=== PATIENT | male | born 1945 | race Caucasian/White ===

== ENCOUNTER 2023-06-03 11:45 | Outpatient (OUT) | payer MEDICARE, SELFPAY ==
--- NOTE | 2023-06-03 13:09 | PM.CN ---
Consult Note: HPI Data of Consult Patient: new to practice Consult date: 06/03/23 Requesting Physician: Boone Olea MD Primary Care Provider: Dev Diehl MD Consult Narrative Reason for consult: left knee pain Narrative: 77yom who presents for evaluation. longstanding left knee pain. has had various injections before, including euflexa, cortisone, synvisc. states that euflexa was most effective. engages in >6 weeks of provider directed home exercises. denies adverse med side effects. cc:: CC: Boone Olea MD Review of Systems ROS Status of ROS 10 or more systems reviewed and unremarkable except as noted in history and below Meds Home Medications and Allergies Home Medications Medication Instructions Recorded Confirmed Type tiotropium bromide 18 mcg capsule 1 cap inhalation DAILY 06/03/23 06/03/23 History with inhalation device (Spiriva with HandiHaler) Allergies Allergy/AdvReac Type Severity Reaction Status Date / Time No Known Drug Allergies Allergy Verified 06/03/23 13:07 Exam Narrative Exam Narrative: Psych-alert and oriented x 3.? Attentive and appropriate, constitutionally normal, displays normal mood and affect per situation.? There are no obvious deficits in memory, reasoning, or intellect. Extremities-lower extremities are warm with minimal edema and palpable pulses. Knee-examination of the left knee reveals tenderness to palpation over the superior, inferior, lateral, and medial aspect of the knee.? Some swelling is noted without erythema. Pain is elicited with flexion and extension of the knee both actively and passively.? Some grinding is noted with these motions.? There is no notable ligamental laxity or instability.? Coordination remains intact.? Gait remains antalgic. Assessment and Plan Assessment and Plan (1) Osteoarthritis of left knee: Plan 77yom who presents for evaluation. failed physical and medical modalities. imaging shows significant arthritis of left knee. has had significant relief previously with euflexa. wants to avoid knee replacement. given previous relief and current symptoms, prudent to repeat left euflexa injection of left knee. he is in agreement. med reviewed, no changes made. follow up in office for left knee injection.
== END 2023-06-03 11:46 | disposition home or self-care (01) ==
PROVIDERS: PCP Family Medicine; Visit Provider Anesthesiology
DX: M17.12 Unilateral primary osteoarthritis, left knee (principal)
CPT/HCPCS: G0463

== ENCOUNTER 2023-07-01 14:42 | Outpatient (OUT) | payer MEDICARE, SELFPAY ==
--- NOTE | 2023-07-01 15:03 | P.CN_ITS ---
Consult Note: HPI Data of Consult Patient: known to practice within the last 3 years Consult date: 07/01/23 Requesting Physician: Boone Olea MD Primary Care Provider: Dev Diehl MD Consult Narrative Reason for consult: Left knee pain Narrative: 78yom who presents for assessment. Persistent left knee pain, previously discussed knee injection. Would like to proceed today. cc:: CC: Boone Olea MD Review of Systems ROS Status of ROS 10 or more systems reviewed and unremarkable except as noted in history and below Meds Home Medications and Allergies Home Medications Medication Instructions Recorded Confirmed Type tiotropium bromide 18 mcg capsule 1 cap inhalation DAILY 06/03/23 06/03/23 History with inhalation device (Spiriva with HandiHaler) Allergies Allergy/AdvReac Type Severity Reaction Status Date / Time No Known Drug Allergies Allergy Verified 06/03/23 13:07 Exam Narrative Exam Narrative: Psych-alert and oriented x 3.? Attentive and appropriate, constitutionally normal, displays normal mood and affect per situation.? There are no obvious deficits in memory, reasoning, or intellect. Extremities-lower extremities are warm with minimal edema and palpable pulses. Knee-examination of the left knee reveals tenderness to palpation over the superior, inferior, lateral, and medial aspect of the knee.? Some swelling is noted without erythema. Pain is elicited with flexion and extension of the knee both actively and passively.? Some grinding is noted with these motions.? There is no notable ligamental laxity or instability.? Coordination remains intact.? Gait remains antalgic. Assessment and Plan Assessment and Plan (1) Osteoarthritis of left knee: Plan 78yom who presents for left knee injection. Previously had Euflexxa injections, which provided more relief than other variations of knee injection. Would like to proceed with a series of Euflexxa injections. Today is his first Euflexxa injection. Procedure: Left knee injection Medications: Euflexxa (hyaluronic acid) I explained the details of the procedure to the patient including the risks, benefits and alternatives. We had an informed discussion and the patient verbalized understanding and signed the consent form. All questions were answered appropriately.? A time out was performed.? After obtaining a comfortable seated position, the left knee was prepped with alcohol x3. A syringe containing the above medication was attached to a 25 guage, 1.5 inch needle under strict aseptic technique. The lateral tibial plateau was palpated.? The needle was then advanced through the subcutaneous tissue in a medial and superior direction towards the joint space.? The contents of the syringe were gently injected without any resistance. The needle was removed and pressure was applied to the injection site to decrease th e incidence of ecchymosis and hematoma formation.? A sterile bandage was applied.
== END 2023-07-01 14:43 | disposition home or self-care (01) ==
LOC: PM 14:42
PROVIDERS: PCP Family Medicine; Visit Provider Anesthesiology
DX: M17.12 Unilateral primary osteoarthritis, left knee (principal)
CPT/HCPCS: 20610; J7323

== ENCOUNTER 2023-07-08 13:35 | Outpatient (OUT) | payer MEDICARE, SELFPAY ==
--- NOTE | 2023-07-08 15:36 | PM.CN ---
Consult Note: HPI Data of Consult Patient: known to practice within the last 3 years Consult date: 07/08/23 Requesting Physician: Boone Olea MD Primary Care Provider: Dev Diehl MD Consult Narrative Reason for consult: left knee pain Narrative: 78yom who presents for left knee injection. today is second Euflexxa injection of left knee. cc:: CC: Boone Olea MD Review of Systems ROS Status of ROS 10 or more systems reviewed and unremarkable except as noted in history and below Meds Home Medications and Allergies Home Medications Medication Instructions Recorded Confirmed Type tiotropium bromide 18 mcg capsule 1 cap inhalation DAILY 06/03/23 06/03/23 History with inhalation device (Spiriva with HandiHaler) Allergies Allergy/AdvReac Type Severity Reaction Status Date / Time No Known Drug Allergies Allergy Verified 06/03/23 13:07 Exam Narrative Exam Narrative: Psych-alert and oriented x 3.? Attentive and appropriate, constitutionally normal, displays normal mood and affect per situation.? There are no obvious deficits in memory, reasoning, or intellect. Extremities-lower extremities are warm with minimal edema and palpable pulses. Knee-examination of the left knee reveals tenderness to palpation over the superior, inferior, lateral, and medial aspect of the knee.? Some swelling is noted without erythema. Pain is elicited with flexion and extension of the knee both actively and passively.? Some grinding is noted with these motions.? There is no notable ligamental laxity or instability.? Coordination remains intact.? Gait remains antalgic. Assessment and Plan Assessment and Plan (1) Osteoarthritis of left knee: Plan 78yom who presents for left knee injection. feeling well after first euflexxa injection last week. questions answered, risks and benefits reviewed. Procedure: Left knee injection Medications: Euflexxa I explained the details of the procedure to the patient including the risks, benefits and alternatives. We had an informed discussion and the patient verbalized understanding and signed the consent form. All questions were answered appropriately.? A time out was performed.? After obtaining a comfortable seated position, the left knee was prepped with alcohol x3. A syringe containing the above medication was attached to a 25 guage, 1.5 inch needle under strict aseptic technique. The lateral tibial plateau was palpated.? The needle was then advanced through the subcutaneous tissue in a medial and superior direction towards the joint space.? The contents of the syringe were gently injected without any resistance. The needle was removed and pressure was applied to the injection site to decrease the incidence of ecchymosis and hematoma formation.? A sterile bandage was applied.
== END 2023-07-08 13:36 | disposition home or self-care (01) ==
LOC: PM 13:35
PROVIDERS: PCP Family Medicine; Visit Provider Anesthesiology
DX: M17.12 Unilateral primary osteoarthritis, left knee (principal)
CPT/HCPCS: 20610; J7323

== ENCOUNTER 2023-07-22 13:24 | Outpatient (OUT) | payer MEDICARE, SELFPAY ==
--- NOTE | 2023-07-22 13:53 | P.CN_ITS ---
Consult Note: HPI Data of Consult Patient: known to practice within the last 3 years Consult date: 07/22/23 Requesting Physician: Boone Olea MD Primary Care Provider: Dev Diehl MD Consult Narrative Reason for consult: Left knee pain Narrative: 78yom who presents for left knee injection. Today is third round of Euflexxa injections into left knee. cc:: CC: Boone Olea MD Review of Systems ROS Status of ROS 10 or more systems reviewed and unremark able except as noted in history and below Meds Home Medications and Allergies Home Medications Medication Instructions Recorded Confirmed Type tiotropium bromide 18 mcg capsule 1 cap inhalation DAILY 06/03/23 06/03/23 History with inhalation device (Spiriva with HandiHaler) Allergies Allergy/AdvReac Type Severity Reaction Status Date / Time No Known Drug Allergies Allergy Verified 06/03/23 13:07 Exam Narrative Exam Narrative: Psych-alert and oriented x 3.? Attentive and appropriate, constitutionally normal, displays normal mood and affect per situation.? There are no obvious deficits in memory, reasoning, or intellect. Extremities-lower extremities are warm with minimal edema and palpable pulses. Knee-examination of the left knee reveals tenderness to palpation over the superior, inferior, lateral, and medial aspect of the knee.? Some swelling is noted without erythema. Pain is elicited with flexion and extension of the knee both actively and passively.? Some grinding is noted with these motions.? There is no notable ligamental laxity or instability.? Coordination remains intact.? Gait remains antalgic. Assessment and Plan Assessment and Plan (1) Osteoarthritis of left knee: Qualifiers: Osteoarthritis type: primary Qualified Code(s): M17.12 - Unilateral primary osteoarthritis, left knee Plan 78yom who presents for left knee euflexxa injcetion. Has done well with previous two, today is third and final euflexxa injection. He agrees to proceed. Procedure: left knee euflexxa injection I explained the details of the procedure to the patient including the risks, benefits and alternatives. We had an informed discussion and the patient verbalized understanding and signed the consent form. All questions were answered appropriately.? A time out was performed.? After obtaining a comfortable seated position, the left knee was prepped with alcohol x3. A syringe containing the above medication was attached to a 22 guage, 1.5 inch needle under strict aseptic technique. The lateral tibial plateau was palpated.? The needle was then advanced through the subcutaneous tissue in a medial and superior direction towards the joint space.? The contents of the syringe were gently injected without any resistance. The n eedle was removed and pressure was applied to the injection site to decrease the incidence of ecchymosis and hematoma formation.? A sterile bandage was applied.
== END 2023-07-22 13:25 | disposition home or self-care (01) ==
LOC: PM 13:25
PROVIDERS: PCP Family Medicine; Visit Provider Anesthesiology
DX: M17.12 Unilateral primary osteoarthritis, left knee (principal)
CPT/HCPCS: 20610; J7323

== ENCOUNTER 2023-08-12 09:40 | Outpatient (OUT) | payer MEDICARE, SELFPAY ==
--- NOTE | 2023-08-12 | XR_ITS ---
[address] [address] Patient Name: MONA SONI MRN: [id number] date: 1945 Sex: M Assigned Patient Location: RAD Current Patient Location: [facility] Accession/Order Number: [id number] Exam Date: 08/12/2023 09:45 Report Date: 08/12/2023 10:52 At the request of: HELENA SHEPPARD Procedure: XR knee LT 4V PROCEDURE: XR knee LT 4V COMPARISON: 06/09/2016 HISTORY: LEFT KNEE PAIN FINDINGS: BONES:No acute fracture or dislocation. Tricompartmental osteoarthritis severe in the anterior and lateral compartments. Lateral compartment joint space narrowing with marginal osteophyte formation SOFT TISSUES:Negative. No visible soft tissue swelling. EFFUSION:None visible. OTHER: Negative. XR/XR knee LT 4V IMPRESSION: Moderate to severe tricompartmental osteoarthritis Electronically authenticated by: TYLER PIKE Date: 08/12/2023 10:52
--- OUTSIDE RECORDS SUMMARY | 2023-08-12 09:44 | XMS_ITS | CCD ---
Author Name Unknown Address [address] [place] [address] Organization [facility] Care Team Providers Care Presser First Name Role Phone Dalton Romo Admitting Unavailable Dalton Romo Attending Unavailable NADERER, DR OZ Sosa Attending Unavailable NADERER, DR OZ Sosa Consulting Unavailable NADERER, DR OZ Sosa Primary Care Unavailable NADERER, DR OZ Sosa Admitting Unavailable NADERER, DR OZ Sosa Attending Unavailable NADERER, DR OZ Sosa Consulting Unavailable NADERER, DR OZ Sosa Primary Care Unavailable NADERER, DR OZ Sosa Admitting Unavailable NADERER, DR OZ Sosa Consulting Unavailable NADERER, DR OZ Sosa Primary Care Unavailable NADERER, DR OZ Sosa Admitting Unavailable NADERER, DR OZ Sosa Attending Unavailable Trace Okeefe Primary Care Provider [phone] Lefty BRYANT, Andyazmin Zendejas Attending Unavailable Waqasitis , Andrius Vytestela Attending Unavailable Lefty BRYANT, Andrius Biankaytestela Attending Unavailable Lefty BRYANT, Andrius Zendejas Attending Unavailable Problems Active Problems Problem Classification Problem Date Documented Da te Episodic/Chronic Other lower respiratory disease (4 sources) Shortness of breath; Translations: [SHORTNESS OF BREATH] Onset: 07-19-2022 Episodic Unclassified (1 source) T81.41XA - Infection following a procedure, superficial incisional surgical site, initial encounter; Translations: [T81.41XA - Infection following a procedure, superficial incisional surgical site, initial encounter] Onset: 10-27-2018 Past or Other Problems Problem Classification Problem Date Documented Da te Episodic/Chronic Genitourinary symptoms and ill-defined conditions (4 sources) Dysuria; Translations: [DYSURIA] Onset: 01-03-2022 Episodic Other aftercare (4 sources) Other terminal gauger (current) drug therapy; Translations: [OTH RESIDENTIAL CURRENT DRUG THERAPY] Onset: 08-24-2021 Episodic Other screening for suspected conditions (not mental disorders or infectious disease) (2 sources) Encounter for screening for malignant neoplasm of prostate; Translations: [Encounter for screening for lipoid disorders] Onset: 08-26-2021 Episodic Results Test Name Value Interpretation Reference Range Facil ity HEMOGLOBINon 07-19-2022 Hemoglobin (Bld) [Mass/Vol] 14.0 g/dL Normal 14.0-18.0 [facility] Comment on above: Performed By: #### H GB #### [facility] [address] [place] [address] Dr. Holden Monae CULTURE URINEon 01-03-2022 CULTURE URINE Culture Observations: No growth Normal [facility] Comment on above: Performed By: #### U RCX #### [facility] [address] [place] [address] Dr. Holden Monae UA RANDOM W/MICROSCOPICon BACTERIA NONE SEEN Normal NONE SEEN [facility] Comment on above: Performed By: #### U AMIC #### [facility] [address] [place] [address] Dr. Holden Monae Bilirubin Ql (U) Negative Normal NEGATIVE [facility] Comment on above: Performed By: #### U AMIC #### [facility] [address] [place] [address] Dr. Holden Monae CA OX CRYSTALS FEW Normal [facility] Comment on above: Performed By: #### U AMIC #### [facility] [address] [place] [address] Dr. Holden Monae CAST NONE SEEN Normal NONE SEEN [facility] Comment on above: Performed By: #### U AMIC #### [facility] [address] [place] [address] Dr. Holden Monae Clarity (U) CLEAR Normal CLEAR [facility] Comment on above: Performed By: #### U AMIC #### [facility] [address] [place] [address] Dr. Holden Monae Color (U) YELLOW Normal YELLOW [facility] Comment on above: Performed By: #### U AMIC #### [facility] [address] [address] [address] Holden Monae Crystals LM Nom (Urine sed) SEEN Abnormal NONE SEEN [facility] Comment on above: Performed By: #### U AMIC #### [facility] [address] [address] [address] Holden Monae Epithelial cells LM Ql (Urine sed) RARE Normal NONE SEEN /RARE [facility] Comment on above: Performed By: #### U AMIC #### [facility] [address] [address] [address] Holden Monae Glucose Ql (U) Negative Normal NEGATIVE [facility] Comment on above: Performed By: #### U AMIC #### [facility] [address] [address] [address] Holden Monae Hemoglobin Ql (U) Negative Normal NEGATIVE [facility] Comment on above: Performed By: #### U AMIC #### [facility] [address] [address] [address] Holden Monae Ketones Ql (U) Negative Normal NEGATIVE [facility] Comment on above: Performed By: #### U AMIC #### [facility] [address] [address] [address] Holden Monae LEUKOCYTES Negative Normal NEGATIVE [facility] Comment on above: Performed By: #### U AMIC #### [facility] [address] [address] [address] Holden Monae MUCOUS NONE SEEN Normal NONE SEEN [facility] Comment on above: Performed By: #### U AMIC #### [facility] [address] [address] [address] Holden Monae Nitrite Ql (U) Negative Normal NEGATIVE [facility] Comment on above: Performed By: #### U AMIC #### [facility] [address] [address] [address] Holden Monae pH (U) 6.0 [pH] Normal 5-9 [facility] Comment on above: Performed By: #### U AMIC #### [facility] [address] [place] [address] Dr. Holden Monae RBC NONE SEEN Abnormal 0-2 [facility] Comment on above: Performed By: #### U AMIC #### [facility] [address] [place] [address] Dr. Holden Monae SPEC GRAVITY 1.020 Normal 1.005-<=1.025 [facility] Comment on above: Performed By: #### U AMIC #### [facility] [address] [place] [address] Dr. Holden Monae UA PROTEIN Negative Normal NEGATIVE/ TRACE [facility] Comment on above: Performed By: #### U AMIC #### [facility] [address] [place] [address] Dr. Holden Monae Urobilinogen Qn (U) 0.2 {Any'U}/dL Normal 0.2 - 1. 0 [facility] Comment on above: Performed By: #### U AMIC #### [facility] [address] [place] [address] Dr. Holden Monae WBC 2-5 Abnormal NONE SEEN [facility] Comment on above: Performed By: #### U AMIC #### [facility] [address] [place] [address] Dr. Holden Monae CBC AUTO DIFFon 08-24-2021 BASO # 0.1 103/ul Normal 0.0-0.1 [facility] Comment on above: Performed By: #### C BC #### [facility] [address] [place] [address] Dr. Holden Monae Basophils/100 WBC (Bld) 1.5 % Normal 0.2-2.0 [facility] Comment on above: Performed By: #### C BC #### [facility] [address] [place] [address] Dr. Holden Monae EO # 0.1 103/ul Normal 0.0-0.7 [facility] Comment on above: Performed By: #### C BC #### [facility] [address] [place] [address] Dr. Holden Monae Eosinophils/100 WBC (Bld) 2.1 % Normal 0.9-7.0 [facility] Comment on above: Performed By: #### C BC #### [facility] [address] [place] [address] Dr. Holden Monae Erythrocyte distribution width (RBC) [Ratio] 12.7 % Normal 11.0-15.0 [facility] Comment on above: Performed By: #### C BC #### [facility] [address] [place] [address] Dr. Holden Monae Hematocrit (Bld) [Volume fraction] 45.2 % Normal 42.0-54.0 [facility] Comment on above: Performed By: #### C BC #### [facility] [address] [place] [address] Dr. Holden Monae Hemoglobin (Bld) [Mass/Vol] 14.8 g/dL Normal 14.0-18.0 [facility] Comment on above: Performed By: #### C BC #### [facility] [address] [place] [address] Dr. Holden Monae IG # 0.01 10e3/ul Normal 0.00-0.03 [facility] Comment on above: Performed By: #### C BC #### [facility] [address] [place] [address] Dr. Holden Monae IG % 0.3 % Normal 0.0-0.5 [facility] Comment on above: Performed By: #### C BC #### [facility] [address] [place] [address] Dr. Holden Monae LYMPH # 1.2 103/ul Normal 1.2-3.8 [facility] Comment on above: Performed By: #### C BC #### [facility] [address] [place] [address] Dr. Holden Monae Lymphocytes/100 WBC (Bld) 35.2 % Normal 20.5-60.0 [facility] Comment on above: Performed By: #### C BC #### [facility] [address] [place] [address] Dr. Holden Monae MANUAL DIFF REQ NO Normal [facility] Comment on above: Performed By: #### C BC #### [facility] [address] [place] [address] Dr. Holden Monae MCH (RBC) [Entitic mass] 30.9 pg Normal 25.9-34.0 [facility] Comment on above: Performed By: #### C BC #### [facility] [address] [place] [address] Dr. Holden Monae MCHC (RBC) [Mass/Vol] 32.7 g/dL Normal 29.9-35.2 [facility] Comment on above: Performed By: #### C BC #### [facility] [address] [place] [address] Dr. Holden Monae MCV (RBC) [Entitic vol] 94.4 fL Critically high 80.0-94.0 [facility] Comment on above: Performed By: #### C BC #### [facility] [address] [place] [address] Dr. Holden Monae MONO # 0.3 103/ul Normal 0.3-0.8 [facility] Comment on above: Performed By: #### C BC #### [facility] [address] [place] [address] Dr. Holden Monae Monocytes/100 WBC (Bld) 7.6 % Normal 1.7-12.0 [facility] Comment on above: Performed By: #### C BC #### [facility] [address] [place] [address] Dr. Holden Monae NEUT # 1.8 103/ul Normal 1.4-6.5 [facility] Comment on above: Performed By: #### C BC #### [facility] [address] [place] [address] Dr. Holden Monae Neutrophils/100 WBC (Bld) 53.3 % Normal 43.0-75.0 [facility] Comment on above: Performed By: #### C BC #### [facility] [address] [place] [address] Dr. Holden Monae Platelet mean volume (Bld) [Entitic vol] 9.5 fL Normal 9.5-13.5 [facility] Comment on above: Performed By: #### C BC #### [facility] [address] [address] [address] Holden Monae PLT 168 103/ul Normal 150-450 [facility] Comment on above: Performed By: #### C BC #### [facility] [address] [address] [address] Holden Monae RBC 4.79 106/ul Normal 4.70-6.10 [facility] Comment on above: Performed By: #### C BC #### [facility] [address] [address] [address] Holden Monae WBC 3.4 103/ul Critically low 4.0-11.0 [facility] Comment on above: Performed By: #### C BC #### [facility] [address] [place] [address] Dr. Holden Monae LIPID PROFILEon 08-24-2021 CHOL-HDL RATIO NORM SEE BELOW Normal [facility] Comment on above: Result Comment: 3.3 - 4.4 LOW RISK 4.4 - 7.1 AVERAGE RISK 7.1 - 11.0 MODERATE RISK >11.0 HIGH RISK Performed By: #### L IPID, BMP, LIVER #### [facility] [address] [place] [address] Dr. Holden Monae Cholesterol [Mass/Vol] 176 mg/dL Normal <=200 [facility] Comment on above: Performed By: #### L IPID, BMP, LIVER #### [facility] [address] [place] [address] Dr. Holden Monae Cholesterol in HDL [Mass/Vol] 81 mg/dL Normal [facility] Comment on above: Performed By: #### L IPID, BMP, LIVER #### [facility] [address] [place] [address] Dr. Holden Monae Cholesterol in LDL [Mass/Vol] 84.6 mg/dL Normal [facility] Comment on above: Performed By: #### L IPID, BMP, LIVER #### [facility] [address] [address] [address] Holden Monae Cholesterol.total/C holesterol in HDL [Mass ratio] 2.2 {ratio} Normal [facility] Comment on above: Performed By: #### L IPID, BMP, LIVER #### [facility] [address] [place] [address] Dr. Holden Monae HDL NORMAL > or = 60 mg/dl - LOW CARDIOVASCULAR RISK <40 mg/dl - HIGH CARDIOVASCULAR RISK Normal [facility] Comment on above: Performed By: #### L IPID, BMP, LIVER #### [facility] [address] [address] [address] Holden Monae LDL CALC NORMAL SEE BELOW Normal [facility] Comment on above: Result Comment: <100 mg/dl OPTIMAL 100 - 129 mg/dl NEAR OR ABOVE OPTIMAL 130 - 159 mg/dl BORDERLINE HIGH 160 - 189 mg/dl HIGH >190 mg/dl VERY HIGH Performed By: #### L IPID, BMP, LIVER #### [facility] [address] [address] [address] Holden Monae Triglyceride [Mass/Vol] 52 mg/dL Normal <=150 [facility] Comment on above: Performed By: #### L IPID, BMP, LIVER #### [facility] [address] [place] [address] Dr. Holden Monae VLDL CALC 10.4 mg/dL Normal [facility] Comment on above: Performed By: #### L IPID, BMP, LIVER #### [facility] [address] [place] [address] Dr. Holden Monae LIVER PROFILEon 08-24-2021 Albumin [Mass/Vol] 3.9 g/dL Normal 3.5-5.0 [facility] Comment on above: Performed By: #### L IPID, BMP, LIVER #### [facility] [address] [place] [address] Dr. Holden Monae Albumin/Globulin [Mass ratio] 1.3 {ratio} Normal [facility] Comment on above: Performed By: #### L IPID, BMP, LIVER #### [facility] [address] [place] [address] Dr. Holden Monae ALP [Catalytic activity/Vol] 83 U/L Normal 38-126 [facility] Comment on above: Performed By: #### L IPID, BMP, LIVER #### [facility] [address] [place] [address] Dr. Holden Monae ALT [Catalytic activity/Vol] 21 U/L Normal 21-72 [facility] Comment on above: Performed By: #### L IPID, BMP, LIVER #### [facility] [address] [place] [address] Dr. Holden Monae AST [Catalytic activity/Vol] 17 U/L Normal 17-59 [facility] Comment on above: Performed By: #### L IPID, BMP, LIVER #### [facility] [address] [place] [address] Dr. Holden Monae BILI, CONJUGATED 0.2 mg/dL Normal 0.0-0.3 [facility] Comment on above: Performed By: #### L IPID, BMP, LIVER #### [facility] [address] [place] [address] Dr. Holden Monae Bilirubin [Mass/Vol] 0.9 mg/dL Normal 0.2-1.3 [facility] Comment on above: Performed By: #### L IPID, BMP, LIVER #### [facility] [address] [place] [address] Dr. Holden Monae Globulin (S) [Mass/Vol] 3.1 g/dL Normal [facility] Comment on above: Performed By: #### L IPID, BMP, LIVER #### [facility] [address] [place] [address] Dr. Holden Monae Protein [Mass/Vol] 7.0 g/dL Normal 6.1-8.2 [facility] Comment on above: Performed By: #### L IPID, BMP, LIVER #### [facility] [address] [place] [address] Dr. Holden Monae PROF CHEM 8 (BAS METB)on Anion gap [Moles/Vol] 13.2 mmol/L Normal [facility] Comment on above: Performed By: #### L IPID, BMP, LIVER #### [facility] [address] [address] [address] Holden Monae Calcium [Mass/Vol] 9.4 mg/dL Normal 8.4-10.2 [facility] Comment on above: Performed By: #### L IPID, BMP, LIVER #### [facility] [address] [address] [address] Holden Monae Chloride [Moles/Vol] 104 mmol/L Normal 98-107 [facility] Comment on above: Performed By: #### L IPID, BMP, LIVER #### [facility] [address] [address] [address] Holden Monae CO2 [Moles/Vol] 28.8 mmol/L Normal 22.0-30.0 [facility] Comment on above: Performed By: #### L IPID, BMP, LIVER #### [facility] [address] [place] [address] Dr. Holden Monae Creatinine [Mass/Vol] 0.81 mg/dL Normal 0.66-1.25 [facility] Comment on above: Performed By: #### L IPID, BMP, LIVER #### [facility] [address] [place] [address] Dr. Holden Monae EGFR-AF KITTITIAN >60 Normal >=60 [facility] Comment on above: Performed By: #### L IPID, BMP, LIVER #### [facility] [address] [place] [address] Dr. Holden Monae EGFR-NON AF KITTITIAN >60 Normal >=60 [facility] Comment on above: Performed By: #### L IPID, BMP, LIVER #### [facility] [address] [address] [address] Holden Monae Glucose [Mass/Vol] 92 mg/dL Normal 74-106 [facility] Comment on above: Performed By: #### L IPID, BMP, LIVER #### [facility] [address] [place] [address] Dr. Holden Monae Potassium [Moles/Vol] 4.0 mmol/L Normal 3.4-5.0 [facility] Comment on above: Performed By: #### L IPID, BMP, LIVER #### [facility] [address] [address] [address] Holden Monae Sodium [Moles/Vol] 142 mmol/L Normal 137-145 [facility] Comment on above: Performed By: #### L IPID, BMP, LIVER #### [facility] [address] [address] [address] Holden Monae Urea nitrogen [Mass/Vol] 11.0 mg/dL Normal 9.0-20.0 [facility] Comment on above: Performed By: #### L IPID, BMP, LIVER #### [facility] [address] [address] [address] Holden Monae Urea nitrogen/Creatinine [Mass ratio] 13.6 mg/mg Normal [facility] Comment on above: Performed By: #### L IPID, BMP, LIVER #### [facility] [address] [address] [address] Holden Monae Superficial Wound Cultureon 10-27-2018 Superficial Wound Culture INFECTION FOLLOWING A PROCEDURE; No Growth 2 Days PERFORMED BY: [place] [address] PATHOLOGIST SAND BUFFER SEAN HUMPHREY M.D. [facility] Comment on above: Performed By: #### C USUP #### [address] Encounters Encounter Date Encounter Type Care Provider Facility Start: 07-23-2023 Telephone encounter Petar crawford MD Work Phone: Ophthalmology Comment on above: Received Outside [facility] Records (Notes received from Dr Parra and sent to scanning) Start: 07-22-2023 End: 07-23-2023 ambulatory Boone Olea MD Facility:[facility] Start: 07-08-2023 End: 07-09-2023 ambulatory Boone Olea MD Facility:[facility] Start: 07-01-2023 End: 07-02-2023 ambulatory Boone Olea MD Facility:[facility] Start: 06-03-2023 End: 06-04-2023 ambulatory Boone Olea MD Facility: [facility] Start: 07-19-2022 End: 07-20-[address] OZ BARBER Facility:[facility] Start: 01-03-2022 End: 01-03-[address] OZ BARBER Facility:[facility] Start: 08-24-2021 End: 08-25-[address] OZ BARBER Facility:[facility] Start: 10-27-2018 End: 10-27-2018 Patient encounter procedure Dalton Box Romo Facility:[facility] Procedures Date Procedure Procedure Detail Performing Clinician Start: 08-24-[address] OZ PAYAN Comment on above: Performed By: #### P [facility] #### [facility] [address] [place] [address] Dr. Holden Monae Plan of Treatment Date Care Activity Detail Author Start: 04-05-2023 Influenza vaccination Influenza Vacc ine (#1) [facility] Start: 08-05-2022 Advance Directive Discussion Advance Directive Discussion [facility] Start: 08-05-2022 Depression Assessment Depression Ass essment [facility] Start: 2010 Pneumococcal Vaccine : 65+ (1 of 1 - PCV) Pneumococcal Vaccine: 65+ (1 of 1 - PCV) [facility] Start: 2005 RSV Vaccine (1 - 1-d ose 60+ series) RSV Vaccine (1 - 1-dose 60+ series) [facility] Start: 1995 Shingrix Vaccine (1 of 2) Shingrix V accine (1 of 2) [facility] Start: 1990 Diabetes Screening Diabetes Screenin g [facility] Start: 1964 Urine microalbumin profile DTaP,Tdap,Td Vaccine (1 - Tdap) [facility] Start: 1963 Hepatitis C screening Hepatitis C Sc carey [facility] Start: 1945 Covid-19 Vaccine (#1) Covid-19 Vacci ne (#1) [facility] Payers Date Payer Category Payer Medicare [facility] MEDICARE [facility] MEDICARE ADVANTAGE PPO [id number] 2023-Present [phone] [address] [address] [place] [address] PPO [id number] 2018 Private Health Insurance KAM [id number] 2018 Self-pay 1959 Medicare [id number] 1945 Unknown [id number] 1945 Unknown [id number] 593 1945 Unknown [id number] 593 1945 Unknown [id number]. 196 1945 Unknown [id number]. 196 1945 Unknown [id number] [id number]. 196 1945 Unknown [id number]. 196 Unknown [id number]. 531 Social History Date Type Detail Facility Tobacco smoking stat [facility] Tobacco smoking consumption unknown [facility] Start: 1945 Sex Assigned At Not on file [facility] Gender identity Not on file [facility] inic Summary Purpose Family History No Family History Records FoundNo Family History Records FoundNo Family History Records Found Advance Directives No Advanced Directives Records FoundNo Advanced Directives Records FoundNo Advanced Directives Records Found Additional Source Comments (unrecognized sect ion and content) No Status Records FoundNo Status Records FoundNo Status Records Found INFORMATION SOURCE (unrecogn ized section and content) DATE CREATED AUTHOR 11/02/[address] [facility] DATE CREATED AUTHOR AUTHOR'S JARRODIZ DANICA 07/27/2022 [facility] DATE CREATED AUTHOR AUTHOR'S ORGANIZ ATION 07/26/2023 [facility] Source Comments (unrecognize d section and content) In the event this informatio n is protected by the Federal Confidentiality of Alcohol and Drug Abuse Patient Records regulations: The Federal rules restrict any use of the information to criminally investigate or prosecute any alcohol or drug abuse patient.[facility] Reason for Visit (unrecogniz ed section and content) Reason Comments Received Outside Medical Records Notes r eceived from Dr Parra and sent to scanning Care Teams (unrecognized sec tion and content) Presser First Relationship Specialty Start Date End Date Trace Okeefe PCP - General Family Medicine 01/04/16 FOR RECORDS PERTAINING TO PATIENTS WHO ARE OR HAVE BEEN ENROLLED IN A CHEMICAL DEPENDENCY/SUBSTANCEABUSE PROGRAM, SOME INFORMATION MAY BE OMITTED. This clinical summary was aggregated from multiple sources. Caution should be exercised in using it in the provision of clinical care. This summary normalizes information from multiple sources, and as a consequence, information in this document may materially change the coding, format and clinical context of patient data. In addition, data may be omitted in some cases. CLINICAL DECISIONS SHOULD BE BASED ON THE PRIMARY CLINICAL RECORDS. [employer] [email or web address] provides no warranty or guarantee of the accuracy or completeness of information in this document.
== END 2023-08-12 09:41 | disposition home or self-care (01) ==
LOC: RAD 09:41
PROVIDERS: PCP Family Medicine; Visit Provider Orthopaedic Surgery
DX: M25.562 Pain in left knee (principal)
CPT/HCPCS: 73564

== ENCOUNTER 2024-04-23 09:45 | Outpatient (OUT) | payer MEDICARE, SELFPAY ==
--- NOTE | 2024-04-23 09:58 | ECG_ITS ---
[facility] Test Date: 2024-04-23 Pat Name: MONA SONI Department: Room: - Gender: Male Bed Operator: : [id number] Requested By: OZ BARBER Order Number: [id number] Reading MD: STEVE JONES Measurements Intervals [place] Rate: 66 P: 62 NH: 173 QRS: 58 QRSD: 96 T: 54 QT: 386 QTc: 407 Interpretive Statements SINUS RHYTHM No previous ECG available for comparison Electronically Signed On 04-23-2024 20:24:38 EDT by STEVE JONES
--- OUTSIDE RECORDS SUMMARY | 2024-04-23 09:59 | XMS_ITS | CCD ---
Author Organization [facility] Care Team Providers Care Hide Washer Name Role Phone Dalton Romo Admitting Unavailable Dalton Romo Attending Unavailable SUNIL, DR DEV Sosa Attending Unavailable NADEREErin, DR DEV Sosa Consulting Unavailable NADERER, DR DEV Sosa Primary Care Unavailable NADERER, DR DEV Sosa Admitting Unavailable NADERER, DR DEV Sosa Attending Unavailable NADERER, DR DEV Sosa Consulting Unavailable NADERER, DR DEV Sosa Primary Care Unavailable NADERER, DR DEV Sosa Admitting Unavailable NADERER, DR DEV Sosa Consulting Unavailable NADERER, DR DEV Sosa Primary Care Unavailable NADERER, DR DEV Sosa Admitting Unavailable NADERER, DR DEV Sosa Attending Unavailable Elvia Okeefe Primary Care Provider Dev Barber Primary Care Provider DEV BARBER Referring Unavailable DEV BARBER Primary Care Unavailable Dev Barber Primary Care Provider DEV BARBER Primary Care Unavailable TERE BLOUNT Attending Unavailable ELVIA OKEEFE Primary Care UnavailTERE Lopez Attending Unavailable DEV BARBER Primary Care Unavailable TERE BLOUNT Attending Unavailable TERE BLOUNT Attending Unavailable DEV BARBER Primary Care Unavailable TERE BLOUNT Referring Unavailable DEV BARBER Primary Care Unavailable TERE BLOUNT Attending Unavailable Lefty BRYANT, Boone Zendejas Attending Unavailable Jay Mendez DO Attending Unavailabl e Lefty BRYANT, Andrius Zendejas Attending Unavailable Lefty BRYANT, Andrius Zendejas Attending Unavailable Lefty BRYANT, Andrius Zendejas Attending Unavailable NANI FAIRBANKS Attending Unavailable DEV BARBER Attending Unavailable DEV BARBER Attending Unavailable NANI FAIRBANKS Attending Unavailable DEV BARBER Attending Unavailable Medications Current Medications Medication Drug Class(es) Dates Sig (Normalized) Sig (Original) dexamethasone 1 mg/ml / neomycin 3.5 mg/ml / polymyxin b 21368 unt/ml ophthalmic suspension (7 sources) Aminoglycoside Antibacterial, Polymyxin-class Antibacterial, Corticosteroid Start: 09-19-2023 End: 04-16-2024 take 1 drop(s) into the eye(s) four times daily [id number]-[id number]-L EXAMETH 3.5 MG/ML-10,000 UNIT/ML-0.1% EYE DROPS Indications: Conjunctival intraepithelial neoplasm INSTILL 1 DROP INTO LEFT EYE 4 TIMES DAILY FOR 7 DAYS 5 mL 1 04/16/2024 Active Comment on above: INSTILL 1 DROP INTO LEFT EYE 4 TIMES DAILY FOR 7 DAYS Fluorouracil (6 sources) Nucleoside Metabolic Inhibitor Start: 04-16-2024 End: 06-05-2024 take 1 drop(s) into the eye(s) four times daily fluorouracil ophthalmic solution 1% (10 mg/mL) (IP-CPD) Indications: Conjunctival intraepithelial neoplasm Use 1 Drop in the left eye four times daily for 7 days. 10 mL 1 04/16/2024 06/05/2024 Active Start: 10-17-2023 End: 10-31-2023 take 1 drop(s) into the eye(s) four times daily fluorouracil ophthalmic solution 1% (10 mg/mL) (IP-CPD) Indications: Conjunctival intraepithelial neoplasm Use 1 Drop in the left eye four times daily for 7 days. 10 mL 0 10/17/2023 10/31/2023 Active Start: 09-17-2023 End: 10-17-2023 take 1 drop(s) into the eye(s) four times daily fluorouracil ophthalmic solution 1% (10 mg/mL) (IP-CPD) Indications: Conjunctival intraepithelial neoplasm Use 1 Drop in the left eye four times daily for 7 days. 10 mL 0 09/17/2023 10/17/2023 Discontinued Start: 09-17-2023 End: 11-06-2023 take 1 drop(s) into the eye(s) four times daily fluorouracil ophthalmic solution 1% (10 mg/mL) (IP-CPD) Indications: Conjunctival intraepithelial neoplasm Use 1 Drop in the left eye four times daily for 7 days. 10 mL 0 09/17/2023 11/06/2023 Active Comment on above: Use 1 Drop in the le ft eye four times daily for 7 days. tiotropium 0.018 mg inhalation powder (1 source) Anticholinergic SPIRIVA WITH DIA DIHALER 18 mcg inhalation capsule Inhale as instructed once daily. 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] 09-17-2023 Episodic Other aftercare (5 sources) Other snf (current) drug therapy; Translations: [OTH BOLT LABELER CURRENT DRUG THERAPY] Onset: 08-24-2021 Episodic Other lower respiratory disease (4 sources) Shortness of breath; Translations: [SHORTNESS OF BREATH] Onset: 07-19-2022 Episodic Other screening for suspected conditions (not mental disorders or infectious disease) (4 sources) Encounter for screening for malignant neoplasm of prostate; Translations: [Encounter for screening for lipoid disorders] Onset: 08-26-2021 Episodic Unclassified (1 source) T81.41XA - Infection following a procedure, superficial incisional surgical site, initial encounter; Translations: [T81.41XA - Infection following a procedure, superficial incisional surgical site, initial encounter] Onset: 10-27-2018 Past or Other Problems Problem Classification Problem Date Documented Da te Episodic/Chronic Genitourinary symptoms and ill-defined conditions (4 sources) Dysuria; Translations: [DYSURIA] Onset: 01-03-2022 Episodic Results Test Name Value Interpretation Reference Range Facil [facility] OCT ANTERIOR SEGMENT SPECIAL ORDERon 04-16-2024 [facility] Radiology Study observation (narrative) [facility] SLIT LAMP PHOTOS OS (LEFT EY E)on 04-16-2024 [facility] Radiology Study observation (narrative) [facility] OCT ANTERIOR SEGMENT SPECIAL ORDERon 01-16-2024 [facility] Radiology Study observation (narrative) [facility] SLIT LAMP PHOTOS OS (LEFT EY E)on 01-16-2024 [facility] Radiology Study observation (narrative) [facility] BASIC METABOLIC PANLon 11-24 Anion gap [Moles/Vol] 7 mmol/L Normal 5-15 [facility] Comment on above: Performed By: #### C BCA, BMP, 75089-3, LIVR, 2857-1 #### [facility] ([id number]) [address], [address] [place] [address] Calcium [Mass/Vol] 9.4 mg/dL Normal 8.5-10.5 [facility] Comment on above: Performed By: #### C BCA, BMP, 72481-0, LIVR, 2857-1 #### [facility] ([id number]) [address], [address] [place] [address] Chloride [Moles/Vol] 105 mmol/L Normal 98-109 [facility] Comment on above: Performed By: #### C BCA, BMP, 43726-0, LIVR, 2857-1 #### [facility] ([id number]) [address], [address] [place] [address] CO2 [Moles/Vol] 29 mmol/L Normal 22-32 [facility] Comment on above: Performed By: #### C BCA, BMP, 62995-6, LIVR, 2857-1 #### [facility] ([id number]) [address], [address] [place] [address] Creatinine [Mass/Vol] 0.83 mg/dL Normal 0.60-1.30 [facility] Comment on above: Result Comment: METH OD TRACEABLE TO IDMS STANDARD Performed By: #### C BCA, BMP, 15639-1, LIVR, 2857-1 #### [facility] ([id number]) [address] [address] [place] [address] GFR/1.73 sq M.predicted among non-blacks MDRD (S/P/Bld) [Vol rate/Area] 90 mL/min/{1.73_m2} Normal >59 [facility] Comment on above: Result Comment: Reported eGFR is based on the CKD-EPI 2020 equation that does not use a race coefficient. Performed By: #### C BCA, BMP, 55388-8, LIVR, 2857-1 #### [facility] ([id number]) [address], [address] [place] [address] Glucose [Mass/Vol] 99 mg/dL Normal 65-99 [facility] Comment on above: Performed By: #### C BCA, BMP, 24917-1, LIVR, 2857-1 #### [facility] ([id number]) [address], [address] [place] [address] Potassium [Moles/Vol] 4.2 mmol/L Normal 3.5-5.0 [facility] Comment on above: Performed By: #### C BCA, BMP, 69261-2, LIVR, 2857-1 #### [facility] ([id number]) [address], [facility] [address] [place] [address] Sodium [Moles/Vol] 141 mmol/L Normal 134-146 [facility] Comment on above: Performed By: #### C BCA, BMP, 11103-3, LIVR, 2857-1 #### [facility] ([id number]) [address] [address] [place] [address] Urea nitrogen [Mass/Vol] 20 mg/dL Normal 5-27 [facility] Comment on above: Performed By: #### C BCA, BMP, 46157-7, LIVR, 285-1 #### [facility] ([id number]) [address], [address] [place] [address] CBC AND AUTO DIFFon 11-25-19 24 ABSOLUTE BASOPHIL 0.1 X10E9/L Normal 0.0-0.2 [facility] Comment on above: Performed By: #### C BCA, BMP, 00529-3, LIVR, 2857-1 #### [facility] ([id number]) [address] [address] [place] [address] ABSOLUTE NEUTROPHIL 2.2 X10E9/L Normal 1.5-6.6 [facility] Comment on above: Performed By: #### C BCA, BMP, 12595-5, LIVR, 2857-1 #### [facility] ([id number]) [address] [address] [place] [address] Basophils/100 WBC (Bld) 1.7 % Normal [facility] Comment on above: Performed By: #### C BCA, BMP, 31288-0, LIVR, 2857-1 #### [facility] ([id number]) [address] [address] [place] [address] Eosinophils (Bld) [#/Vol] 0.1 10*3/uL Normal 0.0-0.4 [facility] Comment on above: Performed By: #### C BCA, BMP, 11434-6, LIVR, 285-1 #### [facility] ([id number]) [address], [address] [place] [address] Eosinophils/100 WBC (Bld) 1.5 % Normal [facility] Comment on above: Performed By: #### C BCA, BMP, 59026-0, LIVR, 285- #### [facility] ([id number]) [address] [address] [place] [address] Erythrocyte distribution width (RBC) [Ratio] 13.6 % Normal 11.5-15.0 [facility] Comment on above: Performed By: #### C BCA, BMP, 37053-0, LIVR, 285- #### [facility] ([id number]) [address] [address] [place] [address] Hematocrit (Bld) [Volume fraction] 42.9 % Normal 39-49 [facility] Comment on above: Performed By: #### C BCA, BMP, 03449-3, LIVR, 2857-1 #### [facility] ([id number]) [address], [facility] [address] [place] [address] Hemoglobin (Bld) [Mass/Vol] 14.4 g/dL Normal 13.0-17.0 [facility] Comment on above: Performed By: #### C BCA, BMP, 72690-7, LIVR, 2857-1 #### [facility] ([id number]) [address], [facility] [address] [place] [address] Lymphocytes (Bld) [#/Vol] 1.0 10*3/uL Normal 1.0-3.5 [facility] Comment on above: Performed By: #### C BCA, BMP, 96554-9, LIVR, 2857-1 #### [facility] ([id number]) [address], [facility] [address] [place] [address] Lymphocytes/100 WBC (Bld) 26.9 % Normal [facility] Comment on above: Performed By: #### Crow BCA, BMP, 52861-7, LIVR, 2857- #### [facility] ([id number]) [address] [address] [place] [address] MCH (RBC) [Entitic mass] 31.5 pg Normal 27-34 [facility] Comment on above: Performed By: #### Crow BCA, BMP, 28002-3, LIVR, 2857- #### [facility] ([id number]) [address] [address] [place] [address] MCHC (RBC) [Mass/Vol] 33.7 g/dL Normal 32-36 [facility] Comment on above: Performed By: #### C BCA, BMP, 73248-0, LIVR, 2857-1 #### [facility] ([id number]) [address] [address] [place] [address] MCV (RBC) [Entitic vol] 94 fL Normal 80-100 [facility] Comment on above: Performed By: #### C BCA, BMP, 40848-8, LIVR, 2857- #### [facility] ([id number]) [address], [address] [place] [address] Monocytes (Bld) [#/Vol] 0.3 10*3/uL Normal 0-0.9 [facility] Comment on above: Performed By: #### C BCA, BMP, 12258-7, LIVR, 2857-1 #### [facility] ([id number]) [address] [place] [address] Monocytes/100 WBC (Bld) 7.8 % Normal [facility] Comment on above: Performed By: #### C BCA, BMP, 58151-4, LIVR, 2857- #### [facility] ([id number]) [address], [address] [place] [address] Neutrophils/100 WBC (Bld) 62.1 % Normal [facility] Comment on above: Performed By: #### C BCA, BMP, 00354-6, LIVR, 2857- #### [facility] ([id number]) [address], [address] [place] [address] Platelet mean volume (Bld) [Entitic vol] 8.1 fL Normal 7-12 [facility] Comment on above: Performed By: #### C BCA, BMP, 39717-7, LIVR, 2857-1 #### [facility] ([id number]) [address], [address] [place] [address] Platelets (Bld) [#/Vol] 179 10*3/uL Normal 150-450 [facility] Comment on above: Performed By: #### C BCA, BMP, 27394-3, LIVR, 2857-1 #### [facility] ([id number]) [address], [address] [place] [address] RBC COUNT 4.58 X10E12/L Normal 4.10-5.70 [facility] Comment on above: Performed By: #### C BCA, BMP, 61705-4, LIVR, 2857-1 #### [facility] ([id number]) [address], [address] [place] [address] WBC (Bld) [#/Vol] 3.6 10*3/uL Low 4.0-11.0 [facility] Comment on above: Performed By: #### C BCA, BMP, 30795-5, LIVR, 2857-1 #### [facility] ([id number]) [address] [place] [address] LIVER PANELon 11-25-2023 Albumin [Mass/Vol] 4.1 g/dL Normal 3.2-5.3 [facility] Comment on above: Performed By: #### C BCA, BMP, 21204-7, LIVR, 2857-1 #### [facility] ([id number]) [address] [place] [address] ALP [Catalytic activity/Vol] 74 U/L Normal 39-130 [facility] Comment on above: Performed By: #### C BCA, BMP, 83167-7, LIVR, 2857-1 #### [facility] ([id number]) [address] [address] [place] [address] ALT [Catalytic activity/Vol] 14 U/L Normal 0-40 [facility] Comment on above: Performed By: #### C BCA, BMP, 08769-7, LIVR, 2857-1 #### [facility] ([id number]) [address], [address] [place] [address] AST [Catalytic activity/Vol] 17 U/L Normal 0-41 [facility] Comment on above: Performed By: #### C BCA, BMP, 40953-9, LIVR, 2857-1 #### [facility] ([id number]) [address] [place] [address] Bilirubin [Mass/Vol] 0.7 mg/dL Normal 0.3-1.2 [facility] Comment on above: Performed By: #### C BCA, BMP, 72012-6, LIVR, 2857-1 #### [facility] ([id number]) [address], [address] [place] [address] Bilirubin.direct [Mass/Vol] 0.1 mg/dL Normal 0.0-0.4 [facility] Comment on above: Performed By: #### C BCA, BMP, 31567-3, LIVR, 2857-1 #### [facility] ([id number]) [address], [address] [place] [address] Protein [Mass/Vol] 6.7 g/dL Normal 6.0-8.0 [facility] Comment on above: Performed By: #### Crow BCA, BMP, 63186-2, LIVR, 2857-1 #### [facility] ([id number]) [address], [address] [place] [address] Lipid 1996 panelon 4 Cholesterol [Mass/Vol] 160 mg/dL Normal 150-200 [facility] Comment on above: Performed By: #### Crow BCA, BMP, 12373-9, LIVR, 2857-1 #### [facility] ([id number]) [address] [place] [address] Cholesterol in HDL [Mass/Vol] 65 mg/dL Normal >39 [facility] Comment on above: Result Comment: HDL <40 mg/dL - High Risk HDL > or = 40mg/dL- Desirable HDL >60 mg/dL - Negative Risk Performed By: #### C BCA, BMP, 79486-5, LIVR, 2857-1 #### [facility] ([id number]) [address], [facility] [address] [place] [address] Cholesterol in LDL [Mass/Vol] 82 mg/dL Normal <130 [facility] Comment on above: Result Comment: LDL <100 mg/dL - Desirable LDL >160 mg/dL - High Risk Performed By: #### C BCA, BMP, 18639-1, LIVR, 2857-1 #### [facility] ([id number]) [address], [facility] [address] [place] [address] Cholesterol in VLDL [Mass/Vol] 13 mg/dL Normal 0-30 [facility] Comment on above: Performed By: #### C BCA, BMP, 77643-5, LIVR, 2857-1 #### [facility] ([id number]) [address] [place] [address] CHOLESTEROL:HDL 2.5 Normal 1.0-5.0 [facility] Comment on above: Performed By: #### C BCA, BMP, 12540-1, LIVR, 2857-1 #### [facility] ([id number]) [address], [facility] [address] [place] [address] Triglyceride [Mass/Vol] 63 mg/dL Normal 27-150 [facility] Comment on above: Performed By: #### C BCA, BMP, 45772-1, LIVR, 2857-1 #### [facility] ([id number]) [address], [facility] [address] [place] [address] Prostate specific Ag [Mass/V ol]on 11-25-2023 PSA SCREEN 1.21 ng/mL Normal 0.00-4.00 [facility] Comment on above: Result Comment: The method used for this test is Christine [employer] DXI chemiluminescent immunoassay. Values obtained by different assay methods cannot be used interchangeably. Performed By: #### C BCA, BMP, 44514-5, LIVR, 2857-1 #### [facility] ([id number]) [address] [facility], [address] [place] [address] [facility] 07-23-2023 CNPN Telephone (OPHTMN) NEVA CONKLIN ([id number]) 1945 M Date Time Provider Department 07/23/23 TERE BLOUNT OPHTMN During your visit today, we recorded the following information about you: Allergies As of Date: 07/23/2023 (Not on File) Date Reviewed: Never Reviewed Reason for Visit: Received Outside Medical Records [3576] Cmt: Notes received from Dr Parra and sent to scanning Problem List As Of Date: 07/23/2023 (None) Encounter Status:Closed by MARIA E GREER on 07/23/23 Normal [facility] HEMOGLOBINon 07-19-2022 Hemoglobin (Bld) [Mass/Vol] 14.0 g/dL Normal 14.0-18.0 [facility] Comment on above: Performed By: #### H GB #### [facility] [address] [place] [address] Dr. Holden Monae CULTURE URINEon 01-03-2022 CULTURE URINE Culture Observations : No growth Normal [facility] Comment on above: Performed By: #### U RCX #### [facility] [address] [place] [address] Dr. Holden Monae UA RANDOM W/MICROSCOPICon BACTERIA NONE SEEN Normal NONE SEEN [facility] Comment on above: Performed By: #### U AMIC #### [facility] [address] [place] [address] Dr. Holden Monae Bilirubin Ql (U) Negative Normal NEGATIVE [facility] Comment on above: Performed By: #### U AMIC #### [facility] [address] [address] [address] Holden Monae CA OX CRYSTALS FEW Normal [facility] Comment on above: Performed By: #### U AMIC #### [facility] [address] [address] [address] Holden Monae CAST NONE SEEN Normal NONE SEEN [facility] Comment on above: Performed By: #### U AMIC #### [facility] [address] [address] [address] Holden Monae Clarity (U) CLEAR Normal CLEAR [facility] Comment on above: Performed By: #### U AMIC #### [facility] [address] [place] [address] Dr. Holden Monae Color (U) YELLOW Normal YELLOW [facility] Comment on above: Performed By: #### U AMIC #### [facility] [address] [address] [address] Holden Monae Crystals LM Nom (Urine sed) SEEN Abnormal NONE SEEN [facility] Comment on above: Performed By: #### U AMIC #### [facility] [address] [place] [address] Dr. Holden Monae Epithelial cells LM Ql (Urine sed) RARE Normal NONE SEEN /RARE [facility] Comment on above: Performed By: #### U AMIC #### [facility] [address] [place] [address] Dr. Holden Monae Glucose Ql (U) Negative Normal NEGATIVE [facility] Comment on above: Performed By: #### U AMIC #### [facility] [address] [address] [address] Holden Monae Hemoglobin Ql (U) Negative Normal NEGATIVE [facility] Comment on above: Performed By: #### U AMIC #### [facility] [address] [place] [address] Dr. Holden Monae Ketones Ql (U) Negative Normal NEGATIVE [facility] Comment on above: Performed By: #### U AMIC #### [facility] [address] [address] [address] Holden Monae LEUKOCYTES Negative Normal NEGATIVE [facility] Comment on above: Performed By: #### U AMIC #### [facility] [address] [address] [address] Holden Monae MUCOUS NONE SEEN Normal NONE SEEN [facility] Comment on above: Performed By: #### U AMIC #### [facility] [address] [address] [address] Holden Monae Nitrite Ql (U) Negative Normal NEGATIVE [facility] Comment on above: Performed By: #### U AMIC #### [facility] [address] [address] [address] Holden Monae pH (U) 6.0 [pH] Normal 5-9 [facility] Comment on above: Performed By: #### U AMIC #### [facility] [address] [address] [address] Holden Monae RBC NONE SEEN Abnormal 0-2 [facility] Comment on above: Performed By: #### U AMIC #### [facility] [address] [address] [address] Holden Monae SPEC GRAVITY 1.020 Normal 1.005-<=1.025 [facility] Comment on above: Performed By: #### U AMIC #### [facility] [address] [address] [address] Holden Monae UA PROTEIN Negative Normal NEGATIVE/ TRACE [facility] Comment on above: Performed By: #### U AMIC #### [facility] [address] [address] [address] Holden Monae Urobilinogen Qn (U) 0.2 {Any'U}/dL Normal 0.2 - 1.0 [facility] Comment on above: Performed By: #### U AMIC #### [facility] [address] [address] [address] Holden Monae WBC 2-5 Abnormal NONE SEEN [facility] Comment on above: Performed By: #### U AMIC #### [facility] [address] [place] [address] Dr. Holden Monae CBC AUTO DIFFon 08-24-2021 BASO # 0.1 103/ul Normal 0.0-0.1 [facility] Comment on above: Performed By: #### C BC #### [facility] [address] [place] [address] Dr. Holden Monae Basophils/100 WBC (Bld) 1.5 % Normal 0.2-2.0 [facility] Comment on above: Performed By: #### C BC #### [facility] [address] [place] [address] Dr. Holden Monae EO # 0.1 103/ul Normal 0.0-0.7 [facility] Comment on above: Performed By: #### C BC #### [facility] [address] [place] [address] Dr. Holden Monae Eosinophils/100 WBC (Bld) 2.1 % Normal 0.9-7.0 [facility] Comment on above: Performed By: #### C BC #### [facility] [address] [place] [address] Dr. Holden Monae Erythrocyte distribution width (RBC) [Ratio] 12.7 % Normal 11.0-15.0 [facility] Comment on above: Performed By: #### C BC #### [facility] [address] [place] [address] Dr. Holden Monae Hematocrit (Bld) [Volume fraction] 45.2 % Normal 42.0-54.0 [facility] Comment on above: Performed By: #### C BC #### [facility] [address] [place] [address] Dr. Holden Monae Hemoglobin (Bld) [Mass/Vol] 14.8 g/dL Normal 14.0-18.0 [facility] Comment on above: Performed By: #### C BC #### [facility] [address] [place] [address] Dr. Holden Monae IG # 0.01 10e3/ul Normal 0.00-0.03 [facility] Comment on above: Performed By: #### C BC #### [facility] [address] [place] [address] Dr. Holden Monae IG % 0.3 % Normal 0.0-0.5 [facility] Comment on above: Performed By: #### C BC #### [facility] [address] [place] [address] Dr. Holden Monae LYMPH # 1.2 103/ul Normal 1.2-3.8 [facility] Comment on above: Performed By: #### C BC #### [facility] [address] [place] [address] Dr. Holden Monae Lymphocytes/100 WBC (Bld) 35.2 % Normal 20.5-60.0 [facility] Comment on above: Performed By: #### C BC #### [facility] [address] [place] [address] Dr. Holden Monae MANUAL DIFF REQ NO Normal [facility] Comment on above: Performed By: #### C BC #### [facility] [address] [place] [address] Dr. Holden Monae MCH (RBC) [Entitic mass] 30.9 pg Normal 25.9-34.0 [facility] Comment on above: Performed By: #### C BC #### [facility] [address] [place] [address] Dr. Holden Monae MCHC (RBC) [Mass/Vol] 32.7 g/dL Normal 29.9-35.2 [facility] Comment on above: Performed By: #### C BC #### [facility] [address] [place] [address] Dr. Holden Monae MCV (RBC) [Entitic vol] 94.4 fL Critically high 80.0-94.0 [facility] Comment on above: Performed By: #### C BC #### [facility] [address] [place] [address] Dr. Holden Monae MONO # 0.3 103/ul Normal 0.3-0.8 [facility] Comment on above: Performed By: #### C BC #### [facility] [address] [place] [address] Dr. Holden Monae Monocytes/100 WBC (Bld) 7.6 % Normal 1.7-12.0 [facility] Comment on above: Performed By: #### C BC #### [facility] [address] [place] [address] Dr. Holden Monae NEUT # 1.8 103/ul Normal 1.4-6.5 [facility] Comment on above: Performed By: #### C BC #### [facility] [address] [place] [address] Dr. Holden Monae Neutrophils/100 WBC (Bld) 53.3 % Normal 43.0-75.0 [facility] Comment on above: Performed By: #### C BC #### [facility] [address] [place] [address] Dr. Holden Monae Platelet mean volume (Bld) [Entitic vol] 9.5 fL Normal 9.5-13.5 [facility] Comment on above: Performed By: #### C BC #### [facility] [address] [place] [address] Dr. Holden Monae PLT 168 103/ul Normal 150-450 [facility] Comment on above: Performed By: #### C BC #### [facility] [address] [place] [address] Dr. Holden Monae RBC 4.79 106/ul Normal 4.70-6.10 [facility] Comment on above: Performed By: #### C BC #### [facility] [address] [place] [address] Dr. Holden Monae WBC 3.4 103/ul Critically low 4.0-11.0 [facility] Comment on above: Performed By: #### C BC #### [facility] [address] [place] [address] Dr. Holden Monae LIPID PROFILEon 08-24-2021 CHOL-HDL RATIO NORM SEE BELOW Normal [facility] Comment on above: Result Comment: 3.3 - 4.4 LOW RISK 4.4 - 7.1 AVERAGE RISK 7.1 - 11.0 MODERATE RISK >11.0 HIGH RISK Performed By: #### L IPID, BMP, LIVER #### [facility] [address] [address] [address] Holden Monae Cholesterol [Mass/Vol] 176 mg/dL Normal <=200 [facility] Comment on above: Performed By: #### L IPID, BMP, LIVER #### [facility] [address] [address] [address] Holden Monae Cholesterol in HDL [Mass/Vol] 81 mg/dL Normal [facility] Comment on above: Performed By: #### L IPID, BMP, LIVER #### [facility] [address] [address] [address] Holden Monae Cholesterol in LDL [Mass/Vol] 84.6 mg/dL Normal [facility] Comment on above: Performed By: #### L IPID, BMP, LIVER #### [facility] [address] [address] [address] Holden Monae Cholesterol.total/ Cholesterol in HDL [Mass ratio] 2.2 {ratio} Normal [facility] Comment on above: Performed By: #### L IPID, BMP, LIVER #### [facility] [address] [address] [address] Holden Monae HDL NORMAL > or = 60 mg/dl - LO W CARDIOVASCULAR RISK <40 mg/dl - HIGH CARDIOVASCULAR RISK Normal [facility] Comment on above: Performed By: #### L IPID, BMP, LIVER #### [facility] [address] [address] [address] Holden Monae LDL CALC NORMAL SEE BELOW Normal [facility] Comment on above: Result Comment: <100 mg/dl OPTIMAL 100 - 129 mg/dl NEAR OR ABOVE OPTIMAL 130 - 159 mg/dl BORDERLINE HIGH 160 - 189 mg/dl HIGH >190 mg/dl VERY HIGH Performed By: #### L IPID, BMP, LIVER #### [facility] [address] [address] [address] Holden Monae Triglyceride [Mass/Vol] 52 mg/dL Normal <=150 [facility] Comment on above: Performed By: #### L IPID, BMP, LIVER #### [facility] [address] [address] [address] Holden Monae VLDL CALC 10.4 mg/dL Normal [facility] Comment on above: Performed By: #### L IPID, BMP, LIVER #### [facility] [address] [address] [address] Holden Monae LIVER PROFILEon 08-24-2021 Albumin [Mass/Vol] 3.9 g/dL Normal 3.5-5.0 [facility] Comment on above: Performed By: #### L IPID, BMP, LIVER #### [facility] [address] [address] [address] Holden Monae Albumin/Globulin [Mass ratio] 1.3 {ratio} Normal [facility] Comment on above: Performed By: #### L IPID, BMP, LIVER #### [facility] [address] [place] [address] Dr. Holden Monae ALP [Catalytic activity/Vol] 83 U/L Normal 38-126 [facility] Comment on above: Performed By: #### L IPID, BMP, LIVER #### [facility] [address] [place] [address] Dr. Holden Monae ALT [Catalytic activity/Vol] 21 U/L Normal 21-72 [facility] Comment on above: Performed By: #### L IPID, BMP, LIVER #### [facility] [address] [place] [address] Dr. Holden Monae AST [Catalytic activity/Vol] 17 U/L Normal 17-59 [facility] Comment on above: Performed By: #### L IPID, BMP, LIVER #### [facility] [address] [place] [address] Dr. Holden Monae BILI, CONJUGATED 0.2 mg/dL Normal 0.0-0.3 [facility] Comment on above: Performed By: #### L IPID, BMP, LIVER #### [facility] [address] [address] [address] Holden Monae Bilirubin [Mass/Vol] 0.9 mg/dL Normal 0.2-1.3 [facility] Comment on above: Performed By: #### L IPID, BMP, LIVER #### [facility] [address] [place] [address] Dr. Holden Monae Globulin (S) [Mass/Vol] 3.1 g/dL Normal [facility] Comment on above: Performed By: #### L IPID, BMP, LIVER #### [facility] [address] [place] [address] Dr. Holden Monae Protein [Mass/Vol] 7.0 g/dL Normal 6.1-8.2 [facility] Comment on above: Performed By: #### L IPID, BMP, LIVER #### [facility] [address] [place] [address] Dr. Holden Monae PROF CHEM 8 (BAS METB)on Anion gap [Moles/Vol] 13.2 mmol/L Normal [facility] Comment on above: Performed By: #### L IPID, BMP, LIVER #### [facility] [address] [place] [address] Dr. Holden Monae Calcium [Mass/Vol] 9.4 mg/dL Normal 8.4-10.2 [facility] Comment on above: Performed By: #### L IPID, BMP, LIVER #### [facility] [address] [place] [address] Dr. Holden Monae Chloride [Moles/Vol] 104 mmol/L Normal 98-107 [facility] Comment on above: Performed By: #### L IPID, BMP, LIVER #### [facility] [address] [place] [address] Dr. Holden Monae CO2 [Moles/Vol] 28.8 mmol/L Normal 22.0-30.0 [facility] Comment on above: Performed By: #### L IPID, BMP, LIVER #### [facility] [address] [place] [address] Dr. Holden Monae Creatinine [Mass/Vol] 0.81 mg/dL Normal 0.66-1.25 [facility] Comment on above: Performed By: #### L IPID, BMP, LIVER #### [facility] [address] [address] [address] Holden Monae EGFR-AF [place] >60 Normal >=60 [facility] Comment on above: Performed By: #### L IPID, BMP, LIVER #### [facility] [id number] [address] Holden Monae EGFR-NON AF [place] >60 Normal >=60 [facility] Comment on above: Performed By: #### L IPID, BMP, LIVER #### [facility] [address] [address] [address] Holden Monae Glucose [Mass/Vol] 92 mg/dL Normal 74-106 [facility] Comment on above: Performed By: #### L IPID, BMP, LIVER #### [facility] [address] [place] [address] Dr. Holden Monae Potassium [Moles/Vol] 4.0 mmol/L Normal 3.4-5.0 [facility] Comment on above: Performed By: #### L IPID, BMP, LIVER #### [facility] [address] [place] [address] Dr. Holden Monae Sodium [Moles/Vol] 142 mmol/L Normal 137-145 [facility] Comment on above: Performed By: #### L IPID BMP, LIVER #### [facility] [address] [address] [address] Holden Monae Urea nitrogen [Mass/Vol] 11.0 mg/dL Normal 9.0-20.0 [facility] Comment on above: Performed By: #### L IPID, BMP, LIVER #### [facility] [address] [place] [address] Dr. Holden Monae Urea nitrogen/Creatinin e [Mass ratio] 13.6 mg/mg Normal [facility] Comment on above: Performed By: #### L IPID, BMP, LIVER #### [facility] [address] [place] [address] Dr. Holden Monae Superficial Wound Cultureon 10-27-2018 Superficial Wound Culture INFECTION FOLLOWING A PROCEDURE; No Growth 2 Days PERFORMED BY: [facility] [address] [place] [id number] PATHOLOGIST BREAK OFF WORKER SEAN HUMPHREY M.D. [facility] Comment on above: Performed By: #### C USUP #### [facility] [address] [place] [address] [place] Encounters Encounter Date Encounter Type Care Provider Facility Start: 04-25-2024 ambulatory Jayzaida Cadet Mendez DO Fa cility:[facility] Start: 04-20-2024 End: 04-20-2024 ambulatory DEV MONTANEZERER Not Available Start: 04-16-2024 End: 04-16-2024 ambulatory TERE BLOUNT Facility:[facility] Start: 04-16-2024 End: 04-16-2024 Patient encounter procedure Tere Blount MD Work Phone: Ophthalmology Comment on above: Conjunctival intraep ithelial neoplasm (Primary Dx) Start: 03-23-2024 End: 03-23-2024 ambulatory NANI FAIRBANKS Not Available Start: 01-16-2024 End: 01-16-2024 ambulatory DEV A GRISR Facility:[facility] Start: 01-16-2024 End: 01-16-2024 Patient encounter procedure Tere Blount MD Work Phone: Ophthalmology Comment on above: Conjunctival intraep ithelial neoplasm (Primary Dx) Start: 11-25-2023 End: 11-26-2023 ambulatory DEV MONTANEZERER [facility] Start: 11-25-2023 End: 11-25-2023 ambulatory DEV NADERER Not Available Start: 10-17-2023 Refill Shayy Melissadepatrizia CHINO Work Phone: Ophthalmology Comment on above: Refill Request Start: 10-15-2023 End: 10-15-2023 ambulatory DEV A LISSETHERER Facility:[facility] Start: 10-15-2023 End: 10-15-2023 Patient encounter procedure Tere Blount MD Work Phone: Ophthalmology Comment on above: Conjunctival intraep ithelial neoplasm (Primary Dx) Start: 10-14-2023 End: 10-14-2023 ambulatory NANI L MAGDI Not Available Start: 09-19-2023 Refill Shayymark Pruitt APRN.CNP Work Phone: Ophthalmology Comment on above: Refill Request Start: 09-17-2023 End: 09-17-2023 ambulatory DEV BARBER Facility:[facility] Start: 09-17-2023 End: 09-17-2023 Patient encounter procedure Tere Blount MD Work Phone: Ophthalmology Comment on above: Conjunctival intraep ithelial neoplasm (Primary Dx) Start: 08-15-2023 End: 08-15-2023 ambulatory ELVIA AYERS MARY Facility:[facility] Start: 07-23-2023 Telephone encounter Tere crawford MD Work Phone: Ophthalmology Comment on above: Received Outside [facility] Records (Notes received from Dr Parra and sent to scanning) Start: 07-22-2023 End: 07-22-2023 ambulatory Boone Olea MD Facility: [facility] Start: 07-08-2023 End: 07-08-2023 ambulatory Andyazmin Alanitis Facility: [facility] Start: 07-01-2023 End: 07-01-2023 ambulatory Andyazmin Alanitis Facility: [facility] Start: 06-03-2023 End: 06-03-2023 ambulatory Andyazmin Alanitis Facility: [facility] Start: 07-19-2022 End: 07-20-[address] DEV BARBER Facility:[facility] Start: 01-03-2022 End: 01-03-[address] DEV BARBER Facility:[facility] Start: 08-24-2021 End: 08-25-[address] DEV BARBER Facility:[facility] Start: 10-27-2018 End: 10-27-2018 Patient encounter procedure Dalton Romo Facility:[facility] Procedures Date Procedure Procedure Detail Performing Clinician Start: 04-16-2024 End: 04-16-2024 Xtrnl ocular photog w/i&r docmt medical progre Tere Blount MD Work Phone: Start: 01-16-2024 End: 01-16-2024 Xtrnl ocular photog w/i&r docga medical rayo Pruitt APRN.CAB STARTER Work Phone: Start: 08-24-[address] DEV PAYAN Comment on above: Performed By: #### P [facility] #### [facility] [address] [address] [address] Holden Monae Plan of Treatment Date Care Activity Detail Author Start: 11-24-2026 Diabetes Screening Diabetes Screenin g [facility] Start: 06-11-2024 End: 06-11-2024 Patient encounter procedure 06/11/2024 8:00 AM EST Office Visit [facility] [address] [address] Tere Blount MD [address] [place] [address] 06/[address] Tere Blount for 2 month f/u Ophthalmology Comment on above: 06/[address] Tere Blount for 2 month f/u Start: 04-16-2024 End: 04-16-2024 Patient encounter procedure 04/16/2024 9:00 AM EDT Office Visit [facility] [address] [address] Tere Blount MD [address] [place] [address] 3 month follow up Ophthalmology Comment on above: 3 month follow up Start: 04-05-2024 Covid-19 Vaccine ( season) Covid-19 Vaccine ( season) [facility] Start: 04-05-2024 Influenza vaccination Influenza Vacc ine (#1) [facility] Start: 08-05-2023 Advance Directive Discussion Advance Directive Discussion [facility] Start: 08-05-2023 Behavioral Health Screening Behavioral Health Screening [facility] Start: 08-05-2023 Depression Assessment Depression Ass essment [facility] Start: 04-05-2023 Influenza vaccination Influenza Vacc ine (#1) [facility] Start: 08-05-2022 Advance Directive Discussion Advance Directive Discussion [facility] Start: 08-05-2022 Depression Assessment Depression Ass essment [facility] Start: 06-13-2016 Shingrix Vaccine (1 of 2) Shingrix V accine (1 of 2) [facility] Start: 06-13-2016 Shingrix Vaccine (2 of 3) Shingrix V accine (2 of 3) [facility] Start: 2010 Pneumococcal Vaccine : 65+ (1 of 1 - PCV) Pneumococcal Vaccine: 65+ (1 of 1 - PCV) [facility] Start: 2005 RSV Vaccine (1 - 1-d ose 60+ series) RSV Vaccine (1 - 1-dose 60+ series) [facility] Start: 1995 Shingrix Vaccine (1 of 2) Shingrix V accine (1 of 2) [facility] Start: 1990 Diabetes Screening Diabetes Screenin g [facility] Start: 1964 Shingrix Vaccine (1 of 2) Shingrix V accine (1 of 2) [facility] Start: 1964 Urine microalbumin profile DTaP,Tdap,Td Vaccine (1 - Tdap) [facility] Start: 1963 Anxiety Screening Anxiety Screening [facility] Start: 1963 Depression Screening Depression Scre ening [facility] Start: 1963 Hepatitis C screening Hepatitis C Sc carey [facility] Start: 1951 Pneumococcal Vaccine : 65+ (1 of 2 - PCV) Pneumococcal Vaccine: 65+ (1 of 2 - PCV) [facility] Start: 1950 Covid-19 Vaccine (#1) Covid-19 Vacci ne (#1) [facility] Start: 1945 Covid-19 Vaccine (#1) Covid-19 Vacci ne (#1) [facility] Immunizations Immunization Date Immunization Notes Care Provider Fa cilinatalia 05-14-2023 influenza virus vacc ine, unspecified formulation Tere Blount MD Work Phone: [facility] Payers Date Payer Category Payer Medicare [id number] 2022 Medicare [id number] 2018 Private Health Insurance [facility] 2018 Self-pay 1959 Medicare [id number] 1945 Unknown [id number] 2.16.84 [id number] 1945 Unknown [id number] 2.16.84 [id number] 1945 Unknown [id number] 2.16.84 [id number] 1945 Unknown [id number] 2.16.8 [id number] 1945 Unknown [id number] 2.16. [id number] 1945 Unknown [id number] 2.16. [id number] 1945 Unknown [id number] 2.16. [id number] 1945 Unknown [id number] 2.16. [id number] 1945 Unknown [id number] 2.16. [id number] 1945 Unknown [id number] 2.16.84 [id number] 1945 Unknown [id number] 2.16.84 [id number] 1945 Unknown [id number] 2.16.84 [id number] 1945 Unknown [id number] 2.16.84 [id number] 1945 Unknown [id number] 2.16.84 [id number] Unknown [id number] 2.16.840 .[id number] Social History Date Type Detail Facility Tobacco smoking stat [facility] Tobacco smoking consumption unknown [facility] Start: 1945 Sex Assigned At Not on file [facility] Start: 08-15-2023 End: 04-16-2024 Gender identity Not on file [facility] Start: 08-15-2023 Tobacco smoking stat [facility] Ex-smoker [facility] History of tobacco use Current smoker [facility] History of tobacco use Cigarette Smoker C [facility] Start: 08-15-2023 Tobacco use and exposure Smokeless t obacco non-user [facility] Start: 09-17-2023 End: 04-16-2024 Alcohol intake Current drinker of alcohol (finding) [facility] Start: 08-15-2023 End: 04-16-2024 History of Social function [facility] National Score (1-10 0), lower number is lower risk 53 [facility] Clinical Notes 08-15-2023 to 04-16-2024 Tere Blount MD - 04/16/2024 8:58 AM Tere Gonzalez MD - 01/16/2024 8:30 AM Tere Gonzalez MD - 10/15/2023 8:08 AM EDTTelephone Encounter - Maria E Greer - 09/19/2023 10:03 AM EST Note Date & Type Note Facility 04-16-2024 Note Date of Procedure 04/16/2024. Prepleater Information Resistor Tester: CLAUDIA. Stop time: 9:53 AM. Imaging Comments Best possible images obtained and Best images possible due to patient disposition . Notes [facility] 04-16-2024 Note Date of Procedure 04/16/2024. Prepleater Information Resistor Tester: Jael Anna Stop time: 9:54 AM. Imaging Comments Best possible images obtained and Best images possible due to patient disposition . Notes [facility] 04-16-2024 Note HNO ID: [id number] Author: TERE BLOUNT MD Service: ? Author Type: Physician Type: Progress Notes Filed: 04/16/2024 13:42 Note Text: 78 year old male, MELISSA OS, s/p 5FU cycle Per patient: Only had 2 cycles. Did not start the 3rd cycle after the last appointment. MELISSA, OS Routine eye doctor first noticed 02/[address] Parra No changes in lesion size, Last eye exam: 07/22/23, Dr. 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 Blount. POH: retinal detachment OS 2012 (s/p PPV/SB/EL Dr. 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 MP : Diffuse MELISSA OS SP: 5FU #1 08/16/23- 08/23/23, 5FU #2 09/18/23- 09/25/23 OCT 01/16/24: thickened farmer's layer. No definite MELISSA TODAY RECC : 4-9 cornea 4 mm Plan: 5 FU restarted RTC in 2 months Will call in 1 month for prescription refill (knee surgery) I have confirmed and edited as necessary the relevant ophthalmic history, ROS, and the neuro exam findings as obtained by others. I have seen and examined this patient. I have discussed the case and the management of this patient's care with the Resident/Fellow, if applicable. I also have reviewed and agree with the assessment and plan as stated above and agree with all of its relevant components. Tere Blount MD April 16, 2024 1:42 PM [facility] 04-16-2024 History of Presen t illness Narrative 78 year old male, MELISSA OS, s/p 5FU cycle Per patient: Only had 2 cycles. Did not start the 3rd cycle after the last appointment. MELISSA, OS Routine eye doctor first noticed 02/[address] Parra No changes in lesion size, Last eye exam: 07/22/23, Dr. 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 Blount. POH: retinal detachment OS 2012 (s/p PPV/SB/EL Dr. Coney), dry eye disease under consdieration for limbal stem cell transplant per patient PMH: COPD, Basal cell carcinoma Cancer History: -Personal: skin cancer (basal cell, removed from face and neck), Current Gtt: Restasis BID OU, azithromycin in klarity once daily, AT Prn. MP : Diffuse MELISSA OS SP: 5FU #1 08/16/23- 08/23/23, 5FU #2 09/18/23- 09/25/23 OCT 01/16/24: thickened farmer's layer. No definite MELISSA TODAY RECC : 4-9 cornea 4 mm Plan: 5 FU restarted RTC in 2 months Will call in 1 month for prescription refill (knee surgery) I have confirmed and edited as necessary the relevant ophthalmic history, ROS, and the neuro exam findings as obtained by others. I have seen and examined this patient. I have discussed the case and the management of this patient's care with the Resident/Fellow, if applicable. I also have reviewed and agree with the assessment and plan as stated above and agree with all of its relevant components. Tere Blount MD April 16, 2024 1:42 PM documented in this encounter [facility] 01-16-2024 Note Date of Procedure 01/16/2024. Prepleater Information Resistor Tester: NASIR Stop time: 9:44 AM. Difficulty with imaging/ANDREA Munoz . Notes Thickened Farmer's layer. No signs of MELISSA ZEISS 01-16-2024 Note Date of Procedure 01/16/2024. Prepleater Information Resistor Tester: Jael nAna Stop time: 9:44 AM. Notes No MELISSA recurrence ZEISS 01-16-2024 Note HNO ID: [id number] Author: TERE BLOUNT MD Service: ? Author Type: Physician Type: Progress Notes Filed: 01/16/2024 10:19 Note Text: 78 year old male, MELISSA OS, s/p 5FU cycle Per patient: Only had 2 cycles. Did not start the 3rd cycle after the last appointment. MELISSA, OS Routine eye doctor first noticed 02/[address] Parra No changes in lesion size, Last eye exam: 07/22/23, Dr. 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 Blount. POH: retinal detachment OS 2012 (s/p PPV/SB/EL Dr. 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 MP : Diffuse MELISSA OS SP: 5FU #1 08/16/23- 08/23/23, 5FU #2 09/18/23- 09/25/23 Exam: Good response to treatment, regressed MELISSA, Pterygium like conjunctival and Corneal involvement from 6:00 to 9:00 0'clock. No signs of toxicity Explained that there was good response after the first session of topical chemotherapy and there is no MELISSA left OCT 01/16/24: thickened farmer's layer. No definite MELISSA Plan: -TOTAL 3 cycles (completed 2 of 3) : NO additional MMC - Observe - Follow-up in 3 months with slitlamp photos and OCT I have confirmed and edited as necessary the relevant ophthalmic history, ROS, and the neuro exam findings as obtained by others. I have seen and examined this patient. I have discussed the case and the management of this patient's care with the Resident/Fellow, if applicable. I also have reviewed and agree with the assessment and plan as stated above and agree with all of its relevant components. Tere Blount MD January 16, 2024 10:19 AM [facility] 01-16-2024 History of Presen t illness Narrative 78 year old male, MELISSA OS, s/p 5FU cycle Per patient: Only had 2 cycles. Did not start the 3rd cycle after the last appointment. MELISSA, OS Routine eye doctor first noticed 02/[address] Parra No changes in lesion size, Last eye exam: 07/22/23, Dr. 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 Blount. POH: retinal detachment OS 2012 (s/p PPV/SB/EL Dr. 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 MP : Diffuse MELISSA OS SP: 5FU #1 08/16/23- 08/23/23, 5FU #2 09/18/23- 09/25/23 Exam: Good response to treatment, regressed MELISSA, Pterygium like conjunctival and Corneal involvement from 6:00 to 9:00 0'clock. No signs of toxicity Explained that there was good response after the first session of topical chemotherapy and there is no MELISSA left OCT 01/16/24: thickened farmer's layer. No definite MELISSA Plan: -TOTAL 3 cycles (completed 2 of 3) : NO additional MMC - Observe - Follow-up in 3 months with slitlamp photos and OCT I have confirmed and edited as necessary the relevant ophthalmic history, ROS, and the neuro exam findings as obtained by others. I have seen and examined this patient. I have discussed the case and the management of this patient's care with the Resident/Fellow, if applicable. I also have reviewed and agree with the assessment and plan as stated above and agree with all of its relevant components. Tere Blount MD January 16, 2024 10:19 AM documented in this encounter [facility] 10-15-2023 Note HNO ID: [id number] Author: TERE BLOUNT MD Service: ? Author Type: Physician Type: Progress Notes Filed: 10/15/2023 09:16 Note Text: 78 year old male, MELISSA OS, s/p 5FU cycle MELISSA, OS Routine eye doctor first noticed 02/[address] Parra No changes in lesion size, Last eye exam: 07/22/23, Dr. 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 Blount. POH: retinal detachment OS 2012 (s/p PPV/SB/EL Dr. 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 MP : Diffuse MELISSA OS SP: 5FU #1 08/16/23- 08/23/23, 5FU #2 09/18/23- 09/25/23 Exam: Good response to treatment, regressed MELISSA, Pterygium like conjunctival and Corneal involvement from 6:00 to 9:00 0'clock. No signs of toxicity Explained that there was good response after the first session of topical chemotherapy and there is no MELISSA left Plan: -TOTAL 3 cycles (completed 2 of 3) - start cycle 3 5 - FU drops QID for one week, maxitrol QID 1 week then ATS for 2 weeks after - Follow-up in 3 months - Discontinue Azithromycin Letter to Dr. Parra ; will alternate visits I have confirmed and edited as necessary the relevant ophthalmic history, ROS, and the neuro exam findings as obtained by others. I have seen and examined this patient. I have discussed the case and the management of this patient's care with the Resident/Fellow, if applicable. I also have reviewed and agree with the assessment and plan as stated above and agree with all of its relevant components. Tere Blount MD October 15, 2023 9:15 AM [facility] 10-15-2023 History of Presen t illness Narrative 78 year old male, MELISSA OS, s/p 5FU cycle MELISSA, OS Routine eye doctor first noticed 02/[address] Parra No changes in lesion size, Last eye exam: 07/22/23, Dr. 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 Blount. POH: retinal detachment OS 2012 (s/p PPV/SB/EL Dr. 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 MP : Diffuse MELISSA OS SP: 5FU #1 08/16/23- 08/23/23, 5FU #2 09/18/23- 09/25/23 Exam: Good response to treatment, regressed MELISSA, Pterygium like conjunctival and Corneal involvement from 6:00 to 9:00 0'clock. No signs of toxicity Explained that there was good response after the first session of topical chemotherapy and there is no MELISSA left Plan: -TOTAL 3 cycles (completed 2 of 3) - start cycle 3 5 - FU drops QID for one week, maxitrol QID 1 week then ATS for 2 weeks after - Follow-up in 3 months - Discontinue Azithromycin Letter to Dr. Parra ; will alternate visits I have confirmed and edited as necessary the relevant ophthalmic history, ROS, and the neuro exam findings as obtained by others. I have seen and examined this patient. I have discussed the case and the management of this patient's care with the Resident/Fellow, if applicable. I also have reviewed and agree with the assessment and plan as stated above and agree with all of its relevant components. Tere Blount MD October 15, 2023 9:15 AM documented in this encounter [facility] 09-19-2023 Miscellaneous Notes Formattin g of this note is different from the original. Neva Conklin [facility] [id number] Lv 09/17/23 Fv 10/15/23 Pharmacy electronically requesting refills as follows: Requested Prescriptions Pending Prescriptions Disp Refills [id number] 3.5 MG/ML-10,000 UNIT/ML-0.1% EYE DROPS 5 mL 0 Sig: INSTILL 1 DROP INTO LEFT EYE 4 TIMES DAILY FOR 7 DAYS Please review and advise. Maria E Greer Assessment & Plan Tere Blount MD filed at 09/17/2023 9:06 AM Status: Signed 78 year old male referred by Dr. Parra for possible MELISSA left eye Patient thinks he is here for possible cancer in the left eye. Patient c/o blurred vision in the left eye, stable since retina surgery, he does have some dryness and discomfort, no redness. MELISSA, OS Routine eye doctor first noticed 02/[address] Parra No changes in lesion size, Last eye exam: 07/22/23, Dr. 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 Blount. POH: retinal detachment OS 2012 (s/p PPV/SB/EL Dr. 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 MP : Diffuse MELISSA OS SP: 5FU #1 08/16/23- 08/23/23 Exam: Good response to treatment, regressed MELISSA, Pterygium like conjunctival and Corneal involvement from 6:00 to 9:00 0'clock. Explained that there is good response to 1 session topical chemotherapy and there is no MELISSA left Plan: TOTAL 3 cycles start cycle 2 5 - FU drops QID for one week, maxitrol QID 1 week then ATS for 2 weeks after Follow-up in 4 weeks documented in this encounter [facility] 09-17-2023 Note HNO ID: [id number] Author: TERE BLOUNT MD Service: ? Author Type: Physician Type: Progress Notes Filed: 09/17/2023 09:06 Note Text: 78 year old male referred by Dr. Parra for possible MELISSA left eye Patient thinks he is here for possible cancer in the left eye. Patient c/o blurred vision in the left eye, stable since retina surgery, he does have some dryness and discomfort, no redness. MELISSA, OS Routine eye doctor first noticed 02/[address] Parra No changes in lesion size, Last eye exam: 07/22/23, Dr. 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 Blount. POH: retinal detachment OS 2012 (s/p PPV/SB/EL Dr. 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 MP : Diffuse MELISSA OS SP: 5FU #1 08/16/23- 08/23/23 Exam: Good response to treatment, regressed MELISSA, Pterygium like conjunctival and Corneal involvement from 6:00 to 9:00 0'clock. Explained that there is good response to 1 session topical chemotherapy and there is no MELISSA left Plan: TOTAL 3 cycles start cycle 2 5 - FU drops QID for one week, maxitrol QID 1 week then ATS for 2 weeks after Follow-up in 4 weeks I have confirmed and edited as necessary the relevant ophthalmic history, ROS, and the neuro exam findings as obtained by others. I have seen and examined this patient. I have discussed the case and the management of this patient's care with the Resident/Fellow, if applicable. I also have reviewed and agree with the assessment and plan as stated above and agree with all of its relevant components. Tere Blount MD September 17, 2023 9:06 AM [facility] 09-17-2023 History of Presen t illness Narrative 78 year old male referred by Dr. Parra for possible MELISSA left eye Patient thinks he is here for possible cancer in the left eye. Patient c/o blurred vision in the left eye, stable since retina surgery, he does have some dryness and discomfort, no redness. MELISSA, OS Routine eye doctor first noticed 02/[address] Parra No changes in lesion size, Last eye exam: 07/22/23, Dr. 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 Blount. POH: retinal detachment OS 2012 (s/p PPV/SB/EL Dr. 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 MP : Diffuse MELISSA OS SP: 5FU #1 08/16/23- 08/23/23 Exam: Good response to treatment, regressed MELISSA, Pterygium like conjunctival and Corneal involvement from 6:00 to 9:00 0'clock. Explained that there is good response to 1 session topical chemotherapy and there is no MELISSA left Plan: TOTAL 3 cycles start cycle 2 5 - FU drops QID for one week, maxitrol QID 1 week then ATS for 2 weeks after Follow-up in 4 weeks I have confirmed and edited as necessary the relevant ophthalmic history, ROS, and the neuro exam findings as obtained by others. I have seen and examined this patient. I have discussed the case and the management of this patient's care with the Resident/Fellow, if applicable. I also have reviewed and agree with the assessment and plan as stated above and agree with all of its relevant components. Tere Blount MD September 17, 2023 9:06 AM documented in this encounter [facility] 08-15-2023 Note HNO ID: [id number] Author: TERE BLOUNT MD Service: ? Author Type: Physician Type: Progress Notes Filed: 08/15/2023 11:54 Note Text: 78 year old male referred by Dr. Parra for possible MELISSA left eye Patient thinks he is here for possible cancer in the left eye. Patient c/o blurred vision in the left eye, stable since retina surgery, he does have some dryness and discomfort, no redness. MELISSA, OS Routine eye doctor first noticed 02/[address] Parra No changes in lesion size, Last eye exam: 07/22/23, Dr. 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 Blount. POH: retinal detachment OS 2012 (s/p PPV/SB/EL Dr. 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 Exam: conjunctival involvement for 3 mm. limbal involvement from 4 to 11 o'clock. Corneal involvement predominantly inferiorly. Extending 2 mm into the cornea. IMP : Diffuse MELISSA OS Too large to resect Start 5 - FU drops QID for one week, maxitrol QID 1 week then ATS for 2 weeks after Follow-up in [address] Parra I have confirmed and edited as necessary the relevant ophthalmic history, ROS, and the neuro exam findings as obtained by others. I have seen and examined this patient. I have discussed the case and the management of this patient's care with the Resident/Fellow, if applicable. I also have reviewed and agree with the assessment and plan as stated above and agree with all of its relevant components. 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, other specified sites [facility] 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, other specified sites [facility] 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, other specified sites documented in this encounter [facility] Summary Purpose Family History No Family History [...] Records FoundNo Status Records FoundNo Status Records FoundNo Status Records FoundNo Status Records FoundNo Status Records Found INFORMATION SOURCE (unrecogn ized section and content) DATE CREATED AUTHOR 11/02/2018 [facility] DATE CREATED AUTHOR AUTHOR'S ORGANIZ ATION 07/27/2022 [facility] DATE CREATED AUTHOR AUTHOR'S ORGANIZ ATION 11/27/2023 [facility] DATE CREATED AUTHOR AUTHOR'S ORGANIZ ATION 04/18/2024 [facility] DATE CREATED AUTHOR AUTHOR'S ORGANIZ ATION 04/21/[address] [facility] DATE CREATED AUTHOR AUTHOR'S DIDI MISHRA 04/21/2024 [facility] EPIC Source Comments (unrecognize d section and content) In the event this informatio n is protected by the Federal Confidentiality of Alcohol and Drug Abuse Patient Records regulations: The Federal rules restrict any use of the information to criminally investigate or prosecute any alcohol or drug abuse patient.[facility] the event this information is protected by the Federal Confidentiality of Alcohol and Drug Abuse Patient Records regulations: The Federal rules restrict any use of the information to criminally investigate or prosecute any alcohol or drug abuse patient.[facility] the event this information is protected by the Federal Confidentiality of Alcohol and Drug Abuse Patient Records regulations: The Federal rules restrict any use of the information to criminally investigate or prosecute any alcohol or drug abuse patient.[facility] the event this information is protected by the Federal Confidentiality of Alcohol and Drug Abuse Patient Records regulations: The Federal rules restrict any use of the information to criminally investigate or prosecute any alcohol or drug abuse patient.[facility] the event this information is protected by the Federal Confidentiality of Alcohol and Drug Abuse Patient Records regulations: The Federal rules restrict any use of the information to criminally investigate or prosecute any alcohol or drug abuse patient.[facility] the event this information is protected by the Federal Confidentiality of Alcohol and Drug Abuse Patient Records regulations: The Federal rules restrict any use of the information to criminally investigate or prosecute any alcohol or drug abuse patient.[facility] the event this information is protected by the Federal Confidentiality of Alcohol and Drug Abuse Patient Records regulations: The Federal rules restrict any use of the information to criminally investigate or prosecute any alcohol or drug abuse patient.[facility] Reason for Visit (unrecogniz ed section and content) Reason Comments Received Outside Medical Records Notes r eceived from Dr Parra and sent to scanning Reason Comments MELISSA Left Eye 4 week f/u; 5FU #1 j an 12-19 Reason Comments Refill Request Reason Comments diffuse MELISSA OS s/p cycle #1 5FU 08/05 09/28 - 08/23/23, s/p cycle #2 5FU 09/18/23 - 09/25/23 Reason Comments MELISSA Follow Up OS; s/p cycle #1 5FU 08/16/23 - 08/23/23, s/p cycle #2 5FU 09/18/23 - 09/25/23 Care Teams (unrecognized sec tion and content) Hide Washer Relationship Specialty Start Date End Date Elvia Okeefe PCP - General Family Medicine 01/04/16 Hide Washer Relationship Specialty Start Date End Date Dev Barber [address] [place] [address] PCP - General Family Medicine 09/17/23 Hide Washer Relationship Specialty Start Date End Date Dev Barber [address] [place] [address] PCP - General Family Medicine 09/17/23 Hide Washer Relationship Specialty Start Date End Date Dev Barber [address] [place] [address] PCP - General Family Medicine 09/17/23 Hide Washer Relationship Specialty Start Date End Date Dev Barber [address] [place] [address] PCP - General Family Medicine 09/17/23 Hide Washer Relationship Specialty Start Date End Date Dev Barber [address] [place] [address] PCP - General Family Medicine 09/17/23 FOR RECORDS PERTAINING TO PATIENTS WHO ARE [...] BE BASED ON THE PRIMARY CLINICAL RECORDS. [facility] [employer], [facility]. provides no warranty or guarantee of the accuracy or completeness of information in this document.
--- NOTE | 2024-04-23 10:57 | XR_ITS ---
The [address] [address] Patient Name: MONA SONI MRN: [id number] date: 1945 Sex: M Assigned Patient Location: [facility] Current Patient Location: Accession/Order Number: [id number] Exam Date: 04/23/2024 10:50 Report Date: 04/24/2024 08:24 At the request of: SHERIE LANG Procedure: XR chest 2V EXAMINATION: XR chest 2V HISTORY: Preop exam COMPARISON: No relevant comparison available. TECHNIQUE: PA and lateral FINDINGS: LUNGS: No significant pulmonary parenchymal abnormalities. VASCULATURE: No increased pulmonary vasculature. PLEURA: No pneumothorax, effusion, or pleural thickening. CARDIAC: No cardiomegaly or cardiac silhouette abnormality. MEDIASTINUM: No visible mass or adenopathy. BONES: Moderate degenerative disc disease and spondylosis without visible acute abnormalities. OTHER: Negative. XR/XR chest 2V IMPRESSION: No acute cardiopulmonary process Electronically authenticated by: TYLER PIKE Date: 04/24/2024 08:24
[2024-04-23 11:29] LABS: Basophils Absolute Auto 0.1 10^3/uL (0.0-0.1); Basophils Percent Auto 1.4 % (0.2-2.0); Eosinophils Absolute Auto 0.1 10^3/uL (0.0-0.7); Eosinophils Percent Auto 1.8 % (0.9-7.0); Hematocrit 41.1 % (42.0-54.0); Hemoglobin 13.6 g/dL (14.0-18.0); Immature Granulocytes Abs Auto 0.01 10^3/uL (0.00-0.03); Immature Granulocytes Pct Auto 0.2 % (0.0-0.5); Lymphocytes Absolute Auto 1.1 10^3/uL (1.2-3.8); Lymphocytes Percent Auto 25.9 % (20.5-60.0); Mean Corpuscular HGB Conc 33.1 g/dL (29.9-35.2); Mean Corpuscular Hemoglobin 31.1 pg (25.9-34.0); Mean Corpuscular Volume 93.8 fL (80.0-94.0); Mean Platelet Volume 9.2 fL (9.5-13.5); Monocytes Absolute Auto 0.3 10^3/uL (0.3-0.8); Monocytes Percent Auto 6.7 % (1.7-12.0); Neutrophils Absolute Auto 2.8 10^3/uL (1.4-6.5); Platelet Count 179 10^3/uL (150-450); Red Blood Count 4.38 10^6/uL (4.70-6.10); Red Cell Distribution Width 12.9 % (11.0-15.0); White Blood Count 4.3 10^3/uL (4.0-11.0)
[2024-04-23 11:32] LABS: Bilirubin Urine NEGATIVE (NEGATIVE); Blood Urine NEGATIVE (NEGATIVE); Clarity Urine CLEAR (CLEAR); Color Urine YELLOW (YELLOW); Glucose Urine UA NEGATIVE (NEGATIVE); Ketones Urine NEGATIVE (NEGATIVE); Leukocyte Esterase Urine NEGATIVE (NEGATIVE); Nitrite Urine NEGATIVE (NEGATIVE); Protein Urine NEGATIVE (NEG/TRACE); pH Urine 6.5 (5.0-9.0)
[2024-04-23 11:33] LABS: INR 1.07; Partial Thromboplastin Time 31.3 sec (22.3-36.2); Prothrombin Time 11.3 sec (9.0-11.6)
[2024-04-23 11:34] LABS: Urine Microscopic Indicated NO
[2024-04-23 11:49] LABS: Alanine Aminotransferase 19 U/L (16-63); Albumin Globulin Ratio 1.2; Albumin Level 3.5 g/dL (3.4-5.0); Alkaline Phosphatase 83 U/L (46-116); Anion Gap 7.7; Aspartate Amino Transferase 16 U/L (15-37); BUN Creatinine Ratio 16.7; Bilirubin Direct 0.2 mg/dL (0.0-0.2); Bilirubin Total 0.7 mg/dL (0.2-1.0); Calcium 8.8 mg/dL (8.5-10.1); Carbon Dioxide 30.5 mmol/L (21.0-32.0); Chloride 106 mmol/L (98-107); Estimated GFR (African America >60 (>=60); Estimated GFR (Non-African Ame >60 (>=60); Glucose 100 mg/dL (74-106); Potassium 4.2 mmol/L (3.5-5.1); Sodium 140 mmol/L (136-145); Total Protein 6.5 g/dL (6.4-8.2)
== END 2024-04-23 09:46 | disposition home or self-care (01) ==
LOC: PST 09:46
PROVIDERS: PCP Family Medicine; Visit Provider Student in an Organized Health Care Education/Training Program
DX: Z01.810 Encounter for preprocedural cardiovascular examination (principal); Z01.812 Encounter for preprocedural laboratory examination; M17.12 Unilateral primary osteoarthritis, left knee; J44.9 Chronic obstructive pulmonary disease, unspecified
CPT/HCPCS: 71046; 80048; 80076; 81003; 85025; 85610; 85730; 87081; 93005

== ENCOUNTER 2024-05-14 11:04 | Outpatient (OUT) | payer MEDICARE, SELFPAY ==
--- OUTSIDE RECORDS SUMMARY | 2024-05-14 11:18 | XMS_ITS | CCD ---
Author Organization [facility] Care Team Providers Care Employee Training Specialist Name Role Phone Dalton Romo Admitting Unavailable Dalton Romo Attending Unavailable SUNIL, DR DEV Sosa Attending Unavailable NADERER, DR [...] Care Unavailable Dev Barber Primary Care Provider [phone] DEV BARBER Primary Care Unavailable TERE BLOUNT Attending Unavailable ELVIA OKEEFE Primary Care UnavailTERE Lopez Attending Unavailable DEV BARBER Primary Care Unavailable TERE BLOUNT Attending Unavailable TERE BLOUNT Attending Unavailable DEV BARBER Primary Care Unavailable TERE BLOUNT Referring Unavailable DEV BARBER Primary Care Unavailable TERE BLOUNT Attending Unavailable NANI FAIBRANKS Attending Unavailable DEV BARBER Attending Unavailable SUNIL, DEV Attending Unavailable NANI FAIRBANKS Attending Unavailable DEV BARBER Attending Unavailable Lefty BRYANT, Boone Zendejas Attending Unavailable Casey Iniguez DPM Attending Gonzales Barber MD, Dev Young Primary Care Unavail able Lefty BRYANT, Boone Zendejas Attending Unavailable Lefty BRYANT, Boone Zendejas Attending Unavailable Giirish BRYANT, Boone Zendejas Attending Unavailable Medications Current Medications Medication Drug Class(es) Dates Sig (Normalized) Sig (Original) dexamethasone 1 mg/ml / neomycin 3.5 mg/ml / polymyxin b 29146 unt/ml ophthalmic suspension (7 sources) Aminoglycoside Antibacterial, Polymyxin-class Antibacterial, Corticosteroid Start: 09-19-2023 End: 04-16-2024 take 1 drop(s) into the eye(s) four times daily [id number]-[id number] EXAMETH 3.5 MG/ML-10,000 UNIT/ML-0.1% EYE DROPS Indications: [...] 09-17-2023 Episodic Other aftercare (5 sources) Other terminal makeup operator (current) drug therapy; Translations: [OTH UNBUNDLER CURRENT DRUG THERAPY] Onset: 08-24-2021 Episodic Other [...] Name Value Interpretation Reference Range Facil ity XR Chest 2 Viewson XR Chest 2 Views EXAM: XR CHEST 2 VIE WS HISTORY: Unilateral primary osteoarthritis, left knee COMPARISON: None. TECHNIQUE: PA and lateral chest were done. FINDINGS: Trachea, mediastinum and heart size are unremarkable. No infiltrate or nodule or effusion or pneumothorax is noted. Diaphragm and bony elements are intact. IMPRESSION: Nonacute two-view chest. Final Dictated by: Isaias Price DO Dictated DT/TM: 04/26/2024 8:35 pm Signed by: Isaias Price DO Signed (Electronic Signature): 04/26/2024 8:36 pm (If Report Is Signed, Electronically Signed in Other Vendor System) Normal [facility] OCT ANTERIOR SEGMENT SPECIAL ORDERon 04-16-2024 [facility] Radiology Study observation (narrative) [facility] SLIT LAMP PHOTOS OS (LEFT EY E)on 04-16-2024 [facility] Radiology Study observation (narrative) [facility] OCT ANTERIOR SEGMENT SPECIAL ORDERon 01-16-2024 [facility] Radiology Study observation (narrative) [facility] SLIT LAMP PHOTOS OS (LEFT EY E)on 01-16-2024 [facility] Radiology Study observation (narrative) [facility] BASIC METABOLIC PANLon 11-24 Anion gap [Moles/Vol] 7 mmol/L Normal 5-15 [facility] Comment on above: Performed By: #### C BCA, BMP, 71644-9, LIVR, 2857-1 #### [facility] ([id number]) [address], [address] [place] [address] Calcium [Mass/Vol] 9.4 mg/dL Normal 8.5-10.5 [facility] Comment on above: Performed By: #### C BCA, BMP, 32341-8, LIVR, 2857-1 #### [facility] ([id number]) [address], [address] [place] [address] Chloride [Moles/Vol] 105 mmol/L Normal 98-109 [facility] Comment on above: Performed By: #### C BCA, BMP, 65452-4, LIVR, 2857-1 #### [facility] ([id number]) [address], [address] [place] [address] CO2 [Moles/Vol] 29 mmol/L Normal 22-32 [facility] Comment on above: Performed By: #### C BCA, BMP, 75561-5, LIVR, 2857-1 #### [facility] ([id number]) [address], [address] [place] [address] Creatinine [Mass/Vol] 0.83 mg/dL Normal 0.60-1.30 [facility] Comment on above: Result Comment: METH OD TRACEABLE TO IDMS STANDARD Performed By: #### C BCA, BMP, 91499-0, LIVR, 2857-1 #### [facility] ([id number]) [address], [address] [place] [address] GFR/1.73 sq M.predicted among non-blacks MDRD (S/P/Bld) [Vol rate/Area] 90 mL/min/{1.73_m2} Normal >59 [facility] Comment on above: Result Comment: Reported eGFR is based on the CKD-EPI 2020 equation that does not use a race coefficient. Performed By: #### C BCA, BMP, 60936-6, LIVR, 2857-1 #### [facility] ([id number]) [address], [address] [place] [address] Glucose [Mass/Vol] 99 mg/dL Normal 65-99 [facility] Comment on above: Performed By: #### C BCA, BMP, 67294-6, LIVR, 2857-1 #### [facility] ([id number]) [address], [address] [place] [address] Potassium [Moles/Vol] 4.2 mmol/L Normal 3.5-5.0 [facility] Comment on above: Performed By: #### C BCA, BMP, 61645-8, LIVR, 2857-1 #### [facility] ([id number]) [address] [address] [place] [address] Sodium [Moles/Vol] 141 mmol/L Normal 134-146 [facility] Comment on above: Performed By: #### C BCA, BMP, 36811-4, LIVR, 2857-1 #### [facility] ([id number]) [address], [address] [place] [address] Urea nitrogen [Mass/Vol] 20 mg/dL Normal 5-27 [facility] Comment on above: Performed By: #### C BCA, BMP, 48411-3, LIVR, 2857-1 #### [facility] ([id number]) [address], [address] [place] [address] CBC AND AUTO DIFFon 11-25-19 24 ABSOLUTE BASOPHIL 0.1 X10E9/L Normal 0.0-0.2 [facility] Comment on above: Performed By: #### C BCA, BMP, 35978-0, LIVR, 2857-1 #### [facility] ([id number]) [address], [address] [place] [address] ABSOLUTE NEUTROPHIL 2.2 X10E9/L Normal 1.5-6.6 [facility] Comment on above: Performed By: #### C BCA, BMP, 70913-4, LIVR, 2857-1 #### [facility] ([id number]) [address], [address] [place] [address] Basophils/100 WBC (Bld) 1.7 % Normal [facility] Comment on above: Performed By: #### C BCA, BMP, 07778-9, LIVR, 285- #### [facility] ([id number]) [address], [address] [place] [address] Eosinophils (Bld) [#/Vol] 0.1 10*3/uL Normal 0.0-0.4 [facility] Comment on above: Performed By: #### C BCA, BMP, 35481-0, LIVR, 2857-1 #### [facility] ([id number]) [address], [address] [place] [address] Eosinophils/100 WBC (Bld) 1.5 % Normal [facility] Comment on above: Performed By: #### C BCA, BMP, 03838-1, LIVR, 2857-1 #### [facility] ([id number]) [address], [address] [place] [address] Erythrocyte distribution width (RBC) [Ratio] 13.6 % Normal 11.5-15.0 [facility] Comment on above: Performed By: #### C BCA, BMP, 66685-4, LIVR, 285- #### [facility] ([id number]) [address], [facility] [address] [place] [address] Hematocrit (Bld) [Volume fraction] 42.9 % Normal 39-49 [facility] Comment on above: Performed By: #### C BCA, BMP, 19395-5, LIVR, 285- #### [facility] ([id number]) [address], [facility] [address] [place] [address] Hemoglobin (Bld) [Mass/Vol] 14.4 g/dL Normal 13.0-17.0 [facility] Comment on above: Performed By: #### C BCA, BMP, 43697-6, LIVR, 2856- #### [facility] ([id number]) [address] [address] [place] [address] Lymphocytes (Bld) [#/Vol] 1.0 10*3/uL Normal 1.0-3.5 [facility] Comment on above: Performed By: #### C BCA, BMP, 89767-3, LIVR, 285- #### [facility] ([id number]) [address], [facility] [address] [place] [address] Lymphocytes/100 WBC (Bld) 26.9 % Normal [facility] Comment on above: Performed By: #### C BCA, BMP, 28428-7, LIVR, 285- #### [facility] ([id number]) [address] [address] [place] [address] MCH (RBC) [Entitic mass] 31.5 pg Normal 27-34 [facility] Comment on above: Performed By: #### C BCA, BMP, 50027-6, LIVR, 2856- #### [facility] ([id number]) [address], [address] [place] [address] MCHC (RBC) [Mass/Vol] 33.7 g/dL Normal 32-36 [facility] Comment on above: Performed By: #### C BCA, BMP, 85987-8, LIVR, 2857-1 #### [facility] ([id number]) [address], [address] [place] [address] MCV (RBC) [Entitic vol] 94 fL Normal 80-100 [facility] Comment on above: Performed By: #### C BCA, BMP, 34180-4, LIVR, 285- #### [facility] ([id number]) [address], [address] [place] [address] Monocytes (Bld) [#/Vol] 0.3 10*3/uL Normal 0-0.9 [facility] Comment on above: Performed By: #### C BCA, BMP, 75354-9, LIVR, 285- #### [facility] ([id number]) [address], [address] [place] [address] Monocytes/100 WBC (Bld) 7.8 % Normal [facility] Comment on above: Performed By: #### C BCA, BMP, 42149-3, LIVR, 285- #### [facility] ([id number]) [address], [address] [place] [address] Neutrophils/100 WBC (Bld) 62.1 % Normal [facility] Comment on above: Performed By: #### C BCA, BMP, 94921-9, LIVR, 285-1 #### [facility] ([id number]) [address], [address] [place] [address] Platelet mean volume (Bld) [Entitic vol] 8.1 fL Normal 7-12 [facility] Comment on above: Performed By: #### C BCA, BMP, 92298-3, LIVR, 2857-1 #### [facility] ([id number]) [address], [address] [place] [address] Platelets (Bld) [#/Vol] 179 10*3/uL Normal 150-450 [facility] Comment on above: Performed By: #### C BCA, BMP, 39528-9, LIVR, 2857-1 #### [facility] ([id number]) [address], [facility] [address] [place] [address] RBC COUNT 4.58 X10E12/L Normal 4.10-5.70 [facility] Comment on above: Performed By: #### C BCA, BMP, 62098-8, LIVR, 2857-1 #### [facility] ([id number]) [address], [address] [place] [address] WBC (Bld) [#/Vol] 3.6 10*3/uL Low 4.0-11.0 [facility] Comment on above: Performed By: #### C BCA, BMP, 41584-4, LIVR, 2857-1 #### [facility] ([id number]) [address], [address] [place] [address] LIVER PANELon 11-25-2023 Albumin [Mass/Vol] 4.1 g/dL Normal 3.2-5.3 [facility] Comment on above: Performed By: #### C BCA, BMP, 90975-2, LIVR, 2857-1 #### [facility] ([id number]) [address] [address] [place] [address] ALP [Catalytic activity/Vol] 74 U/L Normal 39-130 [facility] Comment on above: Performed By: #### C BCA, BMP, 21162-6, LIVR, 2857-1 #### [facility] ([id number]) [address], [address] [place] [address] ALT [Catalytic activity/Vol] 14 U/L Normal 0-40 [facility] Comment on above: Performed By: #### C BCA, BMP, 13918-5, LIVR, 2857-1 #### [facility] ([id number]) [address], [address] [place] [address] AST [Catalytic activity/Vol] 17 U/L Normal 0-41 [facility] Comment on above: Performed By: #### C BCA, BMP, 44289-3, LIVR, 2857-1 #### [facility] ([id number]) [address], [address] [place] [address] Bilirubin [Mass/Vol] 0.7 mg/dL Normal 0.3-1.2 [facility] Comment on above: Performed By: #### C BCA, BMP, 82677-1, LIVR, 2857-1 #### [facility] ([id number]) [address], [address] [place] [address] Bilirubin.direct [Mass/Vol] 0.1 mg/dL Normal 0.0-0.4 [facility] Comment on above: Performed By: #### C BCA, BMP, 95965-1, LIVR, 2857-1 #### [facility] ([id number]) [address] [place] [address] Protein [Mass/Vol] 6.7 g/dL Normal 6.0-8.0 [facility] Comment on above: Performed By: #### C BCA, BMP, 31376-4, LIVR, 2857-1 #### [facility] ([id number]) [address], [address] [place] [address] Lipid 1996 panelon 4 Cholesterol [Mass/Vol] 160 mg/dL Normal 150-200 [facility] Comment on above: Performed By: #### C BCA, BMP, 85235-1, LIVR, 2857-1 #### [facility] ([id number]) [address], [address] [place] [address] Cholesterol in HDL [Mass/Vol] 65 mg/dL Normal >39 [facility] Comment on above: Result Comment: HDL <40 mg/dL - High Risk HDL > or = 40mg/dL- Desirable HDL >60 mg/dL - Negative Risk Performed By: #### C BCA, BMP, 64376-0, LIVR, 2857-1 #### [facility] ([id number]) [address], [address] [place] [address] Cholesterol in LDL [Mass/Vol] 82 mg/dL Normal <130 [facility] Comment on above: Result Comment: LDL <100 mg/dL - Desirable LDL >160 mg/dL - High Risk Performed By: #### C BCA, BMP, 70762-3, LIVR, 2857-1 #### [facility] ([id number]) [address], [address] [place] [address] Cholesterol in VLDL [Mass/Vol] 13 mg/dL Normal 0-30 [facility] Comment on above: Performed By: #### C BCA, BMP, 97670-1, LIVR, 2857-1 #### [facility] ([id number]) [address], [facility] [address] [place] [address] CHOLESTEROL:HDL 2.5 Normal 1.0-5.0 [facility] Comment on above: Performed By: #### C BCA, BMP, 92776-0, LIVR, 2857-1 #### [facility] ([id number]) [address], [address] [place] [address] Triglyceride [Mass/Vol] 63 mg/dL Normal 27-150 [facility] Comment on above: Performed By: #### C BCA, BMP, 88771-2, LIVR, 2857-1 #### [facility] ([id number]) [address], [address] [place] [address] Prostate specific Ag [Mass/V ol]on 11-25-2023 PSA SCREEN 1.21 ng/mL Normal 0.00-4.00 [facility] Comment on above: Result Comment: The method used for this test is IPXI DXI chemiluminescent immunoassay. Values obtained by different assay methods cannot be used interchangeably. Performed By: #### C BCA, BMP, 09910-8, LIVR, 2857-1 #### [facility] ([id number]) [address] [place] [address] [facility] (OPHT[facility] NEVA CONKLIN ([id number]) 1945 M Date Time Provider Department 07/23/23 TERE BLOUNT OPHN During your visit today, we recorded the following information about you: Allergies As of Date: 07/23/2023 (Not on File) Date Reviewed: Never Reviewed Reason for Visit: Received Outside Medical Records [3576] Cmt: Notes received from Dr Parra and sent to scanning Problem List As Of Date: 07/23/2023 (None) Encounter Status:Closed by MARIA E GREER on 07/23/23 Normal [facility] HEMOGLOBINon 07-19-2022 Hemoglobin (Bld) [Mass/Vol] 14.0 g/dL Normal 14.0-18.0 [facility] Comment on above: Performed By: #### H GB #### [facility] [address] [place] [address] Dr. Holden Monae CULTURE URINEon 01-03-2022 CULTURE URINE Culture Observations : No growth Normal [facility] Comment on above: Performed By: #### U RCX #### [facility] [address] [place] [address] Dr. Holden Monae UA RANDOM W/MICROSCOPICon BACTERIA NONE SEEN Normal NONE SEEN [facility] Comment on above: Performed By: #### U AMIC #### [facility] [address] [place] [address] Dr. Holden Monae Bilirubin Ql (U) Negative Normal NEGATIVE [facility] Comment on above: Performed By: #### U AMIC #### [facility] [address] [place] [address] Dr. Holden Monae CA OX CRYSTALS FEW Normal [facility] Comment on above: Performed By: #### U AMIC #### [facility] [address] [place] [address] Dr. Holden Monae CAST NONE SEEN Normal NONE SEEN [facility] Comment on above: Performed By: #### U AMIC #### [facility] [address] [place] [address] Dr. Holden Monae Clarity (U) CLEAR Normal CLEAR [facility] Comment on above: Performed By: #### U AMIC #### [facility] [address] [place] [address] Dr. Holden Monae Color (U) YELLOW Normal YELLOW [facility] Comment on above: Performed By: #### U AMIC #### [facility] [address] [place] [address] Dr. Holden Monae Crystals LM Nom (Urine sed) SEEN Abnormal NONE SEEN [facility] Comment on above: Performed By: #### U AMIC #### [facility] [address] [place] [address] Dr. Holden Monae Epithelial cells LM Ql (Urine sed) RARE Normal NONE SEEN /RARE [facility] Comment on above: Performed By: #### U AMIC #### [facility] [address] [address] [address] Holden Monae Glucose Ql (U) Negative Normal NEGATIVE [facility] Comment on above: Performed By: #### U AMIC #### [facility] [address] [address] [address] Holden Monae Hemoglobin Ql (U) Negative Normal NEGATIVE [facility] Comment on above: Performed By: #### U AMIC #### [facility] [address] [address] [address] Holden Monae Ketones Ql (U) Negative Normal NEGATIVE [facility] Comment on above: Performed By: #### U AMIC #### [facility] [address] [address] [address] Holden Monae LEUKOCYTES Negative Normal NEGATIVE [facility] Comment on above: Performed By: #### U AMIC #### [facility] [address] [address] [address] Holden Monae MUCOUS NONE SEEN Normal NONE SEEN [facility] Comment on above: Performed By: #### U AMIC #### [facility] [address] [address] [address] Holden Monae Nitrite Ql (U) Negative Normal NEGATIVE [facility] Comment on above: Performed By: #### U AMIC #### [facility] [address] [address] [address] Holden Monae pH (U) 6.0 [pH] Normal 5-9 [facility] Comment on above: Performed By: #### U AMIC #### [facility] [address] [address] [address] Holden Monae RBC NONE SEEN Abnormal 0-2 [facility] Comment on above: Performed By: #### U AMIC #### [facility] [address] [address] [address] Holden Monae SPEC GRAVITY 1.020 Normal 1.005-<=1.025 [facility] Comment on above: Performed By: #### U AMIC #### [facility] [address] [address] [address] Holden Monae UA PROTEIN Negative Normal NEGATIVE/ TRACE [facility] Comment on above: Performed By: #### U AMIC #### [facility] [address] [address] [address] Holden Monae Urobilinogen Qn (U) 0.2 {Any'U}/dL Normal 0.2 - 1.0 [facility] Comment on above: Performed By: #### U AMIC #### [facility] [address] [address] [address] Holden Monae WBC 2-5 Abnormal NONE SEEN [facility] Comment on above: Performed By: #### U AMIC #### [facility] [address] [place] [address] Dr. Holden Monae CBC AUTO DIFFon 08-24-2021 BASO # 0.1 103/ul Normal 0.0-0.1 [facility] Comment on above: Performed By: #### C BC #### [facility] [address] [place] [address] Dr. Holden Monae Basophils/100 WBC (Bld) 1.5 % Normal 0.2-2.0 [facility] Comment on above: Performed By: #### C BC #### [facility] [address] [place] [address] Dr. Holden Monae EO # 0.1 103/ul Normal 0.0-0.7 [facility] Comment on above: Performed By: #### C BC #### [facility] [address] [place] [address] Dr. Holden Monea Eosinophils/100 WBC (Bld) 2.1 % Normal 0.9-7.0 [facility] Comment on above: Performed By: #### C BC #### [facility] [address] [place] [address] Dr. Holden Monae Erythrocyte distribution width (RBC) [Ratio] 12.7 % Normal 11.0-15.0 [facility] Comment on above: Performed By: #### C BC #### [facility] [address] [place] [address] Dr. Holden Monae Hematocrit (Bld) [Volume fraction] 45.2 % Normal 42.0-54.0 [facility] Comment on above: Performed By: #### C BC #### [facility] [address] [place] [address] Dr. Holden Monae Hemoglobin (Bld) [Mass/Vol] 14.8 g/dL Normal 14.0-18.0 [facility] Comment on above: Performed By: #### C BC #### [facility] [address] [place] [address] Dr. Holden Monae IG # 0.01 10e3/ul Normal 0.00-0.03 [facility] Comment on above: Performed By: #### C BC #### [facility] [address] [place] [address] Dr. Holden Monae IG % 0.3 % Normal 0.0-0.5 [facility] Comment on above: Performed By: #### C BC #### [facility] [address] [place] [address] Dr. Holden Monae LYMPH # 1.2 103/ul Normal 1.2-3.8 [facility] Comment on above: Performed By: #### C BC #### [facility] [address] [place] [address] Dr. Holden Monae Lymphocytes/100 WBC (Bld) 35.2 % Normal 20.5-60.0 [facility] Comment on above: Performed By: #### C BC #### [facility] [address] [place] [address] Dr. Holden Monae MANUAL DIFF REQ NO Normal [facility] Comment on above: Performed By: #### C BC #### [facility] [address] [place] [address] Dr. Holden Monae MCH (RBC) [Entitic mass] 30.9 pg Normal 25.9-34.0 [facility] Comment on above: Performed By: #### C BC #### [facility] [address] [place] [address] Dr. Holden Monae MCHC (RBC) [Mass/Vol] 32.7 g/dL Normal 29.9-35.2 [facility] Comment on above: Performed By: #### C BC #### [facility] [address] [place] [address] Dr. Holden Monae MCV (RBC) [Entitic vol] 94.4 fL Critically high 80.0-94.0 [facility] Comment on above: Performed By: #### C BC #### [facility] [address] [address] [address] Holden Monae MONO # 0.3 103/ul Normal 0.3-0.8 [facility] Comment on above: Performed By: #### C BC #### [facility] [address] [place] [address] Dr. Holden Monae Monocytes/100 WBC (Bld) 7.6 % Normal 1.7-12.0 [facility] Comment on above: Performed By: #### C BC #### [facility] [address] [place] [address] Dr. Holden Monae NEUT # 1.8 103/ul Normal 1.4-6.5 [facility] Comment on above: Performed By: #### C BC #### [facility] [address] [place] [address] Dr. Holden Monae Neutrophils/100 WBC (Bld) 53.3 % Normal 43.0-75.0 [facility] Comment on above: Performed By: #### C BC #### [facility] [address] [place] [address] Dr. Holden Monae Platelet mean volume (Bld) [Entitic vol] 9.5 fL Normal 9.5-13.5 [facility] Comment on above: Performed By: #### C BC #### [facility] [address] [place] [address] Dr. Holden Monae PLT 168 103/ul Normal 150-450 [facility] Comment on above: Performed By: #### C BC #### [facility] [facility] [address] [place] [address] Dr. Holden Monae RBC 4.79 106/ul Normal 4.70-6.10 [facility] Comment on above: Performed By: #### C BC #### [facility] [address] [address] [address] Holden Monae WBC 3.4 103/ul Critically low 4.0-11.0 [facility] Comment on above: Performed By: #### C BC #### [facility] [address] [address] [address] Holden Monae LIPID PROFILEon 08-24-2021 CHOL-HDL RATIO NORM SEE BELOW Normal [facility] Comment on above: Result Comment: 3.3 - 4.4 LOW RISK 4.4 - 7.1 AVERAGE RISK 7.1 - 11.0 MODERATE RISK >11.0 HIGH RISK Performed By: #### L IPID, BMP, LIVER #### [facility] [address] [address] [address] Holden Monae Cholesterol [Mass/Vol] 176 mg/dL Normal <=200 [facility] Comment on above: Performed By: #### L IPID, BMP, LIVER #### [facility] [address] [address] [address] Holden Monae Cholesterol in HDL [Mass/Vol] 81 mg/dL Normal [facility] Comment on above: Performed By: #### L IPID, BMP, LIVER #### [facility] [address] [address] [address] Holden Monae Cholesterol in LDL [Mass/Vol] 84.6 mg/dL Normal [facility] Comment on above: Performed By: #### L IPID, BMP, LIVER #### [facility] [address] [address] [address] Holden Monae Cholesterol.total/ Cholesterol in HDL [Mass ratio] 2.2 {ratio} Normal [facility] Comment on above: Performed By: #### L IPID, BMP, LIVER #### [facility] [address] [address] [address] Holden Monae HDL NORMAL > or = 60 mg/dl - LO W CARDIOVASCULAR RISK <40 mg/dl - HIGH CARDIOVASCULAR RISK Normal [facility] Comment on above: Performed By: #### L IPID, BMP, LIVER #### [facility] [address] [address] [address] Holden Monae LDL CALC NORMAL SEE BELOW Normal [facility] Comment on above: Result Comment: <100 mg/dl OPTIMAL 100 - 129 mg/dl NEAR OR ABOVE OPTIMAL 130 - 159 mg/dl BORDERLINE HIGH 160 - 189 mg/dl HIGH >190 mg/dl VERY HIGH Performed By: #### L IPID, BMP, LIVER #### [facility] [address] [address] [address] Holden Monae Triglyceride [Mass/Vol] 52 mg/dL Normal <=150 [facility] Comment on above: Performed By: #### L IPID, BMP, LIVER #### [facility] [address] [place] [address] Dr. Holden Monae VLDL CALC 10.4 mg/dL Normal [facility] Comment on above: Performed By: #### L IPID, BMP, LIVER #### [facility] [address] [address] [address] Holden Monae LIVER PROFILEon 08-24-2021 Albumin [Mass/Vol] 3.9 g/dL Normal 3.5-5.0 [facility] Comment on above: Performed By: #### L IPID, BMP, LIVER #### [facility] [address] [place] [address] Dr. Holden Monae Albumin/Globulin [Mass ratio] 1.3 {ratio} Normal [facility] Comment on above: Performed By: #### L IPID, BMP, LIVER #### [facility] [address] [place] [address] Dr. Holden Monae ALP [Catalytic activity/Vol] 83 U/L Normal 38-126 [facility] Comment on above: Performed By: #### L IPID, BMP, LIVER #### [facility] [address] [place] [address] Dr. Holden Monae ALT [Catalytic activity/Vol] 21 U/L Normal 21-72 [facility] Comment on above: Performed By: #### L IPID, BMP, LIVER #### [facility] [address] [place] [address] Dr. Holden Monae AST [Catalytic activity/Vol] 17 U/L Normal 17-59 [facility] Comment on above: Performed By: #### L IPID, BMP, LIVER #### [facility] [address] [place] [address] Dr. Holden Monae BILI, CONJUGATED 0.2 mg/dL Normal 0.0-0.3 [facility] Comment on above: Performed By: #### L IPID, BMP, LIVER #### [facility] [address] [place] [address] Dr. Holden Monae Bilirubin [Mass/Vol] 0.9 mg/dL Normal 0.2-1.3 [facility] Comment on above: Performed By: #### L IPID, BMP, LIVER #### [facility] [address] [place] [address] Dr. Holden Monae Globulin (S) [Mass/Vol] 3.1 g/dL Normal [facility] Comment on above: Performed By: #### L IPID, BMP, LIVER #### [facility] [address] [place] [address] Dr. Holden Monae Protein [Mass/Vol] 7.0 g/dL Normal 6.1-8.2 [facility] Comment on above: Performed By: #### L IPID, BMP, LIVER #### [facility] [address] [place] [address] Dr. Holden Monae PROF CHEM 8 (BAS METB)on Anion gap [Moles/Vol] 13.2 mmol/L Normal [facility] Comment on above: Performed By: #### L IPID, BMP, LIVER #### [facility] [address] [place] [address] Dr. Holden Monae Calcium [Mass/Vol] 9.4 mg/dL Normal 8.4-10.2 [facility] Comment on above: Performed By: #### L IPID, BMP, LIVER #### [facility] [address] [place] [address] Dr. Holden Monae Chloride [Moles/Vol] 104 mmol/L Normal 98-107 [facility] Comment on above: Performed By: #### L IPID, BMP, LIVER #### [facility] [address] [place] [address] Dr. Holden Monae CO2 [Moles/Vol] 28.8 mmol/L Normal 22.0-30.0 [facility] Comment on above: Performed By: #### L IPID, BMP, LIVER #### [facility] [address] [address] [address] Holden Monae Creatinine [Mass/Vol] 0.81 mg/dL Normal 0.66-1.25 [facility] Comment on above: Performed By: #### L IPID, BMP, LIVER #### [facility] [address] [place] [address] Dr. Holden Monae EGFR-AF CHADIAN >60 Normal >=60 [facility] Comment on above: Performed By: #### L IPID, BMP, LIVER #### [facility] [address] [place] [address] Dr. Holden Monae EGFR-NON AF CHADIAN >60 Normal >=60 [facility] Comment on above: Performed By: #### L IPID, BMP, LIVER #### [facility] [address] [place] [address] Dr. Holden Monae Glucose [Mass/Vol] 92 mg/dL Normal 74-106 [facility] Comment on above: Performed By: #### L IPID, BMP, LIVER #### [facility] [address] [place] [address] Dr. Holden Monae Potassium [Moles/Vol] 4.0 mmol/L Normal 3.4-5.0 [facility] Comment on above: Performed By: #### L IPID, BMP, LIVER #### [facility] [address] [place] [address] Dr. Holden Monae Sodium [Moles/Vol] 142 mmol/L Normal 137-145 [facility] Comment on above: Performed By: #### L IPID, BMP, LIVER #### [facility] [address] [place] [address] Dr. Holden Monae Urea nitrogen [Mass/Vol] 11.0 mg/dL Normal 9.0-20.0 [facility] Comment on above: Performed By: #### L IPID, BMP, LIVER #### [facility] [address] [address] [address] Holden Monae Urea nitrogen/Creatinin e [Mass ratio] 13.6 mg/mg Normal [facility] Comment on above: Performed By: #### L IPID, BMP, LIVER #### [facility] [address] [address] [address] Holden Monae Superficial Wound Cultureon 10-27-2018 Superficial Wound Culture INFECTION FOLLOWING A PROCEDURE; No Growth 2 Days PERFORMED BY: [facility] [address] [place] [address] PATHOLOGIST ASSISTANT LABORATORY DIRECTOR SEAN HUMPHREY M.D. [facility] Comment on above: Performed By: #### C USUP #### [facility] [address] [place] [address] [place] Encounters Encounter Date Encounter Type Care Provider Facility Start: 04-25-2024 End: 04-25-2024 ambulatory Casey Iniguez DPM Facility:[facility] Start: 04-20-2024 End: 04-20-2024 ambulatory DEV BARBER Not Available Start: 04-16-2024 End: 04-16-2024 ambulatory TERE BLOUNT Facility:[facility] Start: 04-16-2024 End: 04-16-2024 Patient encounter procedure Tere Blount MD Work Phone: Ophthalmology Comment on above: Conjunctival intraep ithelial neoplasm (Primary Dx) Start: 03-23-2024 End: 03-23-2024 ambulatory NANI FAIRBANKS Not Available Start: 01-16-2024 End: 01-16-2024 ambulatory DEV BARBER Facility:[facility] Start: 01-16-2024 End: 01-16-2024 Patient encounter procedure Tere Blount MD Work Phone: Ophthalmology Comment on above: Conjunctival intraep ithelial neoplasm (Primary Dx) Start: 11-25-2023 End: 11-26-2023 ambulatory DEV BARBER [facility] Start: 11-25-2023 End: 11-25-2023 ambulatory DEV BARBER Not Available Start: 10-17-2023 Refill Shayy Cindea CAP LINING MACHINE OPERATOR.VIDEO CONTROL OPERATOR Work Phone: Ophthalmology Comment on above: Refill Request Start: 10-15-2023 End: 10-15-2023 ambulatory DEV BARBER Facility:[facility] Start: 10-15-2023 End: 10-15-2023 Patient encounter procedure Tere Blount MD Work Phone: Ophthalmology Comment on above: Conjunctival intraep ithelial neoplasm (Primary Dx) Start: 10-14-2023 End: 10-14-2023 ambulatory NANI FAIRBANKS Not Available Start: 09-19-2023 Refill Shayy Cindea CAP LINING MACHINE OPERATOR.VIDEO CONTROL OPERATOR Work Phone: Ophthalmology Comment on above: Refill Request Start: 09-17-2023 End: 09-17-2023 ambulatory DEV BARBER Facility:[facility] Start: 09-17-2023 End: 09-17-2023 Patient encounter procedure Tere Blount MD Work Phone: Ophthalmology Comment on above: Conjunctival intraep ithelial neoplasm (Primary Dx) Start: 08-15-2023 End: 08-15-2023 ambulatory ELVIA AYERS MARY Facility:[facility] Start: 07-23-2023 Telephone encounter Tere crawford MD Work Phone: Ophthalmology Comment on above: Received Outside [facility] Records (Notes received from Dr Parra and sent to scanning) Start: 07-22-2023 End: 07-22-2023 ambulatory Boone Olea MD Facility: [facility] Start: 07-08-2023 End: 07-08-2023 ambulatory Bonoe Olea MD Facility:[facility] Start: 07-01-2023 End: 07-01-2023 ambulatory Boone Olae MD Facility: [facility] Start: 06-03-2023 End: 06-03-2023 [facility]ulatory [facility] Start: 07-19-2022 End: 07-20-[address] DEV BARBER Facility:[facility] Start: 01-03-2022 End: 01-03-[address] DEV BARBER Facility:[facility] Start: 08-24-2021 End: 08-25-[address] DEV BARBER Facility:[facility] Start: 10-27-2018 End: 10-27-2018 Patient encounter procedure Dalton Romo Facility:[facility] Procedures Date Procedure Procedure Detail Performing Clinician Start: 04-16-2024 End: 04-16-2024 Xtrnl ocular photog w/i&r docnj medical rayo Blount MD Work Phone: Start: 01-16-2024 End: 01-16-2024 Xtrnl ocular photog w/i&r docmt medical progre Shayy Pruitt APRN.VIDEO CONTROL OPERATOR Work Phone: Start: 08-24-[address] DEV PAYAN Comment on above: Performed By: #### P [facility] #### [facility] [address] [place] [address] Dr. Holden Monae Plan of Treatment Date Care Activity Detail Author Start: 11-24-2026 [facility] Start: 06-11-2024 End: 06-11-2024 Patient encounter procedure 06/11/2024 8:00 AM EST Office Visit [facility] [address] [address] Tere Blount MD [address] [place] [address] 06/[address] Tere Blount for 2 month f/u Ophthalmology Comment on above: 06/[address] Tere Blount for 2 month f/u Start: 04-16-2024 End: 04-16-2024 Patient encounter procedure 04/16/2024 9:00 AM EDT Office Visit [facility] [address] [address] Tere Blount MD [address] [place] [address] 3 month follow up Ophthalmology Comment on above: 3 month follow up Start: 04-05-2024 Covid-19 Vaccine ( season) Covid-19 Vaccine ( season) [facility] Start: 04-05-2024 Influenza vaccination Influenza Vacc ine (#1) [facility] Start: 08-05-2023 Advance Directive Discussion Advance Directive Discussion [facility] Start: 08-05-2023 Behavioral Health Screening Behavioral Health Screening [facility] Start: 08-05-2023 Depression Assessment Depression Ass essment [facility] Start: 04-05-2023 Influenza vaccination Influenza Vacc ine (#1) [facility] Start: 08-05-2022 Advance Directive Discussion Advance Directive Discussion [facility] Start: 08-05-2022 Depression Assessment Depression Ass essment [facility] Start: 06-13-2016 Shingrix Vaccine (1 of 2) Shingrix V accine (1 of 2) [facility] Start: 06-13-2016 Shingrix Vaccine (2 of 3) Shingrix V accine (2 of 3) [facility] Start: 2010 Pneumococcal Vaccine : 65+ (1 of 1 - PCV) Pneumococcal Vaccine: 65+ (1 of 1 - PCV) [facility] Start: 2005 RSV Vaccine (1 - 1-d ose 60+ series) RSV Vaccine (1 - 1-dose 60+ series) [facility] Start: 1995 Shingrix Vaccine (1 of 2) Shingrix V accine (1 of 2) [facility] Start: 1990 Diabetes Screening Diabetes Screenin g [facility] Start: 1964 Shingrix Vaccine (1 of 2) Shingrix V accine (1 of 2) [facility] Start: 1964 Urine microalbumin profile DTaP,Tdap,Td Vaccine (1 - Tdap) [facility] Start: 1963 Anxiety Screening Anxiety Screening [facility] Start: 1963 Depression Screening Depression Scre ening [facility] Start: 1963 Hepatitis C screening Hepatitis C Sc reeseun [facility] Start: 1951 Pneumococcal Vaccine : 65+ (1 of 2 - PCV) Pneumococcal Vaccine: 65+ (1 of 2 - PCV) [facility] Start: 1950 Covid-19 Vaccine (#1) Covid-19 Vacci ne (#1) [facility] Start: 1945 Covid-19 Vaccine (#1) Covid-19 Vacci ne (#1) [facility] Immunizations Immunization Date Immunization Notes Care Provider Fa cility 05-14-2023 influenza virus vacc ine, unspecified formulation Tere Blount MD Work Phone: [facility] Payers Date Payer Category Payer Medicare [id number] 2022 Medicare [id number] 2018 Private Health Insurance MEB [id number] 2018 Self-pay 1959 Medicare [id number] 1945 Unknown [id number] 2.16.84 [id number] 1945 Unknown [id number] 2.16.84 [id number] 1945 Unknown [id number] 2.16.84 [id number] 1945 Unknown [id number] 2.16.8 [id number] 1945 Unknown [id number] 2.16.84 0.1.009419.3.579.2.1259 1945 Unknown [id number] 2.16.84 0.1.410581.3.579.2.1259 1945 Unknown [id number] 2.16.84 0.1.852449.3.579.2.1259 1945 Unknown [id number] 2.16.84 0.1.779067.3.579.2.1259 1945 Unknown [id number] 2.16.84 0.1.378903.3.579.2.1259 1945 Unknown [id number] 2.16. [id number] 1945 Unknown [id number] 2.16. [id number] 1945 Unknown [id number] 2.16. [id number] 1945 Unknown [id number] 2.16. [id number] 1945 Unknown [id number] 2.16. 840.1.024251.3.579.2.196 Unknown [id number] 2.16.840 .[id number] Social History Date Type Detail Facility Tobacco smoking stat [facility] Tobacco smoking consumption unknown [facility] Start: 1945 Sex Assigned At Not on file [facility] Start: 08-15-2023 End: 04-16-2024 Gender identity Not on file [facility] Start: 08-15-2023 Tobacco smoking stat [facility] Ex-smoker [facility] History of tobacco use Current smoker [facility] History of tobacco use Cigarette Smoker [facility] Start: 08-15-2023 Tobacco use and exposure Smokeless t obacco non-user [facility] Start: 09-17-2023 End: 04-16-2024 Alcohol intake Current drinker of alcohol (finding) [facility] Start: 08-15-2023 End: 04-16-2024 History of Social function [facility] National Score (1-10 0), lower number is lower risk 53 [facility] Clinical Notes 08-15-2023 to 04-28-2024 Tere Blount MD - 04/16/2024 8:58 AM Tere Gonzalez MD - 01/16/2024 8:30 AM Tere Gonzalez MD - 10/15/2023 8:08 AM Maria E Dent - 09/19/2023 10:03 AM EST Note Date & Type Note Facility 04-28-2024 Note Procedure: Standing AP views of the lower extremities from the iliac crests through the toñito. 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 Comparison: None. Findings: Bones: No gross acute fracture or dislocation. 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 Right femur length: 52.6 cm. Right lower extremity length: 97.8 cm. Right tibiofemoral angle: 8 degrees valgus. Left femur length: 53.2 cm. Left lower extremity length: 98.1 cm. Left tibiofemoral angle: 16 degrees valgus. Soft tissues: Grossly unremarkable. IMPRESSION: Severe lateral compartment left knee DJD. Final Dictated by: Wilbert Galvan MD Dictated DT/TM: 04/28/2024 11:37 am Signed by: Wilbert Galvan MD Signed (Electronic Signature): 04/28/2024 11:51 am (If Report Is Signed, Electronically Signed in Other Vendor System) [facility] 04-28-2024 Note Procedure: Orthoroen tgenogram. Technique: Supine AP radiographs of the hips, knees, and ankles. Femur length was measured from the superior femoral head to the femoral notch. Lower extremity length was measured from the superior femoral head to the tibial plafond. Clinical information: 78-year-old male with OA of the left knee. Comparison: None. Findings: Right femur length: 51.0 cm. Right lower extremity length: 94.1 cm. Left femur length: 51.5 cm. Left lower extremity length: 94.2 cm. Bones: No acute abnormality or destructive osseous lesion. Joints: Severe lateral compartment left hip degenerative joint disease (DJD). Soft tissues: Lower leg edema. IMPRESSION: 0.1 cm difference in lower extremity length. Final Dictated by: Wilbert Galvan MD Dictated DT/TM: 04/28/2024 11:31 am Signed by: Wilbert Galvan MD Signed (Electronic Signature): 04/28/2024 11:36 am (If Report Is Signed, Electronically Signed in Other Vendor System) [facility] 04-28-2024 Note Procedure: MRI of th e left knee without contrast. Sequences: Sagittal T2 (Croft and Nephew Protocol). Diagnostic quality: Limited, single sequence. Clinical information: 78-year-old male with osteoarthrosis (OA) left knee. Comparison: Bilateral knee radiographs 06/13/2016. Findings: Menisci, anterior and posterior horns: Complex tearing and high-grade degeneration throughout the lateral meniscus. Cruciate ligaments: T2 hyperintensity and mild splaying of the proximal anterior cruciate ligament (ACL). No definite posterior cruciate ligament (PCL) tear. Quadriceps mechanism/patellar tendon: No gross tear. Joints: Severe lateral compartment and moderate patellofemoral and medial compartment degenerative joint disease (DJD). No joint effusion. Bones: No gross acute fracture, dislocation, or focal destruction. Soft tissues: Moderate popliteal cyst. Probable ganglia just cephalad to the origins of the medial and lateral heads of the gastrocnemius. IMPRESSION: Moderate and severe DJD. Final Dictated by: Wilbert Galvan MD Dictated DT/TM: 04/28/2024 11:14 am Signed by: Wilbert Galvan MD Signed (Electronic Signature): 04/28/2024 11:31 am (If Report Is Signed, Electronically Signed in Other Vendor System) [facility] Comment on above: Order Comment: 04/23/24at -7:21 left message at [phone] fax us a order order scanned in at 9am. good to go. 04-16-2024 Note Date of Procedure 04/16/2024. Project Financial Analyst Information Forestry Instructor: CLAUDIA. Stop time: 9:53 AM. Imaging Comments Best possible images obtained and Best images possible due to patient disposition . Notes [facility] 04-16-2024 Note Date of Procedure 04/16/2024. Project Financial Analyst Information Forestry Instructor: Jael Anna Stop time: 9:54 AM. Imaging Comments Best possible images obtained and Best images possible due to patient disposition . Notes [facility] 04-16-2024 Note HNO ID: [id number] Author: TERE BLOUNT MD Service: ? Author [...] retinal detachment OS 2012 (s/p PPV/SB/EL Dr. Florse), dry eye disease under consdieration for limbal [...] Blount MD April 16, 2024 1:42 PM [facility] 04-16-2024 History of Presen t illness [...] 2024 1:42 PM documented in this encounter [facility] 01-16-2024 Note Date of Procedure 01/16/2024. Project Financial Analyst Information Forestry Instructor: NASIR Stop time: 9:44 AM. Difficulty with imaging/ANDREA Munoz . Notes Thickened Farmer's layer. No signs of MELISSA [facility] 01-16-2024 Note Date of Procedure 01/16/2024. Project Financial Analyst Information Forestry Instructor: Jael Anna Stop time: 9:44 AM. Notes No MELISSA recurrence [facility] 01-16-2024 Note HNO ID: [id number] Author: TERE BLOUNT MD Service: ? Author [...] Blount MD January 16, 2024 10:19 AM [facility] 01-16-2024 History of Presen t illness [...] 2024 10:19 AM documented in this encounter [facility] 10-15-2023 Note HNO ID: [id number] Author: TERE BLOUNT MD Service: ? Author [...] Blount MD October 15, 2023 9:15 AM [facility] 10-15-2023 History of Presen t illness [...] 2023 9:15 AM documented in this encounter [facility] 09-19-2023 Miscellaneous Notes Formattin g of this note is different from the original. Neva Conklin [facility] [id number] 09/17/23 Fv 10/15/23 Pharmacy electronically requesting refills as follows: Requested Prescriptions Pending Prescriptions Disp Refills [id number] 3.5 MG/ML-10,000 UNIT/ML-0.1% EYE DROPS 5 mL [...] in 4 weeks documented in this encounter [facility] 09-17-2023 Note HNO ID: [id number] Author: TERE BLOUNT MD Service: ? Author [...] Blount MD September 17, 2023 9:06 AM [facility] 09-17-2023 History of Presen t illness [...] 2023 9:06 AM documented in this encounter [facility] 08-15-2023 Note HNO ID: [id number] Author: TERE BLOUNT MD Service: ? 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, other specified sites [facility] 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, other specified sites [facility] 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, other specified sites documented in this encounter [facility] Summary Purpose Family History No Family History [...] section and content) DATE CREATED AUTHOR 11/02/2018 [facility] DATE CREATED AUTHOR AUTHOR'S ORGANIZ ATION 07/27/2022 [facility] DATE CREATED AUTHOR AUTHOR'S ORGANIZ ATION 11/27/2023 [facility] DATE CREATED AUTHOR AUTHOR'S ORGANIZ ATION 04/18/2024 [facility] DATE CREATED AUTHOR AUTHOR'S ORGANIZ ATION 04/21/2024 [facility] EPIC DATE CREATED AUTHOR AUTHOR'S ORGANBLU ATION 04/30/2024 [facility] Source Comments (unrecognize d section and content) In the event this informatio n is protected by the Federal Confidentiality of Alcohol and Drug Abuse Patient Records regulations: The Federal rules restrict any use of the information to criminally investigate or prosecute any alcohol or drug abuse patient.[facility] [place] the event this information is protected by the Federal Confidentiality of Alcohol and Drug Abuse Patient Records regulations: The Federal rules restrict any use of the information to criminally investigate or prosecute any alcohol or drug abuse patient.[facility] [place] the event this information is protected by the Federal Confidentiality of Alcohol and Drug Abuse Patient Records regulations: The Federal rules restrict any use of the information to criminally investigate or prosecute any alcohol or drug abuse patient.[facility] [place] the event this information is protected by the Federal Confidentiality of Alcohol and Drug Abuse Patient Records regulations: The Federal rules restrict any use of the information to criminally investigate or prosecute any alcohol or drug abuse patient.[facility] [place] the event this information is protected by the Federal Confidentiality of Alcohol and Drug Abuse Patient Records regulations: The Federal rules restrict any use of the information to criminally investigate or prosecute any alcohol or drug abuse patient.[facility] [place] the event this information is protected by the Federal Confidentiality of Alcohol and Drug Abuse Patient Records regulations: The Federal rules restrict any use of the information to criminally investigate or prosecute any alcohol or drug abuse patient.[facility] [place] the event this information is protected by the Federal Confidentiality of Alcohol and Drug Abuse Patient Records regulations: The Federal rules restrict any use of the information to criminally investigate or prosecute any alcohol or drug abuse patient.[facility] [place] Reason for Visit (unrecogniz ed section and content) Reason Comments Received Outside Medical Records Notes r eceived from Dr Parra and sent to scanning Reason Comments MELISSA Left Eye 4 week f/u; 5FU #1 j an - Reason Comments Refill Request Reason Comments diffuse MELISSA OS s/p cycle #1 5FU 08/05 09/28 - 08/23/23, s/p cycle #2 5FU 09/18/23 - 09/25/23 Reason Comments MELISSA Follow Up OS; s/p cycle #1 5FU 08/16/23 - 08/23/23, s/p cycle #2 5FU 09/18/23 - 09/25/23 Care Teams (unrecognized sec tion and content) Employee Training Specialist Relationship Specialty Start Date End Date Elvia Okeefe PCP - General Family Medicine 01/04/16 Employee Training Specialist Relationship Specialty Start Date End Date Dev Barber [address] [place] [address] PCP - General Family Medicine 09/17/23 Employee Training Specialist Relationship Specialty Start Date End Date Dev Barber [address] [place] [address] PCP - General Family Medicine 09/17/23 Employee Training Specialist Relationship Specialty Start Date End Date Dev Barber [address] [place] [address] PCP - General Family Medicine 09/17/23 Employee Training Specialist Relationship Specialty Start Date End Date Dev Barber [address] [place] [address] PCP - General Family Medicine 09/17/23 Employee Training Specialist Relationship Specialty Start Date End Date Dev Barber [address] [place] [address] PCP - General Family Medicine 09/17/23 FOR [...] BE BASED ON THE PRIMARY CLINICAL RECORDS. [facility] [employer] [facility]. provides no warranty or guarantee of the accuracy or completeness of information in this document.
== END 2024-05-14 11:05 | disposition home or self-care (01) ==
LOC: LAB 11:04
PROVIDERS: PCP Family Medicine; Visit Provider Student in an Organized Health Care Education/Training Program
DX: M17.12 Unilateral primary osteoarthritis, left knee (principal)
CPT/HCPCS: 36415; 86850; 86900; 86901

== ENCOUNTER 2024-05-18 06:58 | Day surgery (SDC) | payer MEDICARE, SELFPAY ==
[2024-04-23 10:45] VITALS: BP 113/71; PULSE 76; TEMP 36.3; O2SAT 96; BMI 29.0
[2024-05-18] VITALS (23 sets, daily range): BP systolic 107–145; BP diastolic 68–88; PULSE 98–107; TEMP 36.2–36.7; O2SAT 92–96; BMI 29.0; BMI 28.8
--- OUTSIDE RECORDS SUMMARY | 2024-05-18 07:01 | XMS_ITS | CCD ---
Author Organization [facility] Care Team Providers Care Blasting Cap Assembler Name Role Phone Dalton Romo Admitting Unavailable Dalton Romo Attending Unavailable NADEREErin, DR DEV Sosa Attending Unavailable NADERER, DR [...] Attending Unavailable Elvia Okeefe Primary Care Provider [phone] Dev Barber Primary Care Provider DEV BARBER Referring Unavailable DEV BARBER Primary Care Unavailable Dev Barber Primary Care Provider DEV BARBER Primary Care Unavailable TERE BLOUNT Attending Unavailable ELVIA OKEEFE Primary Care Unavailabl e TERE BLOUNT Attending Unavailable DEV BARBER Primary Care Unavailable TERE BLOUNT Attending Unavailable TERE BLOUNT Attending Unavailable DEV BARBER Primary Care Unavailable TERE BLOUNT Referring Unavailable DEV BARBER Primary Care Unavailable TERE BLOUNT Attending Unavailable NANI FAIRBANKS Attending Unavailable SUNIL, DEV Attending Unavailable SUNIL, DEV Attending Unavailable NANI FAIRBANKS Attending Unavailable DEV BARBER Attending Unavailable Lefty BRYANT, Boone Zendejas Attending Unavailable Hira VINES, Casey Kennedy Attending Gonzales Barber MD, Dev Young Primary Care Unavail able Lefty BRYANT, Boone Zendejas Attending Unavailable Lefty BRYANT, Boone Zendejas Attending Unavailable Lefty BRYANT, Boone Zendejas Attending Unavailable Medications Current Medications Medication Drug Class(es) Dates Sig (Normalized) Sig (Original) dexamethasone 1 mg/ml / neomycin 3.5 mg/ml / polymyxin b 27725 unt/ml ophthalmic suspension (9 sources) Aminoglycoside Antibacterial, Polymyxin-class Antibacterial, Corticosteroid Start: 09-19-2023 End: 05-08-2024 take 1 drop(s) into the eye(s) four times daily YRHYSOUH-AGUHJAYOJ-X EXAMETH 3.5 MG/ML-10,000 UNIT/ML-0.1% EYE DROPS Indications: Conjunctival intraepithelial neoplasm INSTILL 1 DROP INTO LEFT EYE 4 TIMES DAILY FOR 7 DAYS 5 mL 1 05/08/2024 Active Comment on above: INSTILL 1 DROP INTO LEFT EYE 4 TIMES DAILY FOR 7 DAYS Fluorouracil (8 sources) Nucleoside Metabolic Inhibitor Start: 05-08-2024 End: 05-15-2024 take 1 drop(s) into the eye(s) four times daily fluorouracil ophthalmic solution 1% (10 mg/mL) (IP-CPD) Indications: Conjunctival intraepithelial neoplasm Use 1 Drop in the left eye four times daily for 7 days. 10 mL 05/08/2024 05/15/2024 Active Start: 04-16-2024 End: 05-08-2024 take 1 drop(s) into the eye(s) four times daily fluorouracil ophthalmic solution 1% (10 mg/mL) (IP-CPD) Indications: Conjunctival intraepithelial neoplasm Use 1 Drop in the left eye four times daily for 7 days. 10 mL 1 04/16/2024 05/08/2024 Discontinued Start: 04-16-2024 End: 06-05-2024 take 1 drop(s) [...] 7 days. tiotropium 0.018 mg inhalation powder (2 sources) Anticholinergic SPIRIVA WITH DIA DIHALER 18 mcg inhalation capsule Inhale as instructed once daily. 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 Other aftercare (5 sources) Other usp (current) drug therapy; Translations: [OTH PENITENTIARY CURRENT DRUG THERAPY] Onset: 08-24-2021 Episodic Other [...] Electronically Signed in Other Vendor System) Normal [facility] OCT ANTERIOR SEGMENT SPECIAL ORDERon 04-16-2024 [facility] Radiology Study observation (narrative) [facility] SLIT LAMP PHOTOS OS (LEFT EY E)on 04-16-2024 [facility] Radiology Study observation (narrative) [facility] OCT ANTERIOR SEGMENT SPECIAL ORDERon 01-16-2024 [facility] Radiology Study observation (narrative) [facility] SLIT LAMP PHOTOS OS (LEFT EY E)on 01-16-2024 [facility] Radiology Study observation (narrative) [facility] BASIC METABOLIC PANLon 11-24 Anion gap [Moles/Vol] 7 mmol/L Normal 5-15 [facility] Comment on above: Performed By: #### C BCA, BMP, 43897-2, LIVR, 2857-1 #### [facility] ([id number]) [address], [address] [place] [address] Calcium [Mass/Vol] 9.4 mg/dL Normal 8.5-10.5 [facility] Comment on above: Performed By: #### C BCA, BMP, 25071-1, LIVR, 2857-1 #### [facility] ([id number]) [address], [address] [place] [address] Chloride [Moles/Vol] 105 mmol/L Normal 98-109 [facility] Comment on above: Performed By: #### C BCA, BMP, 59076-6, LIVR, 2857-1 #### [facility] ([id number]) [address] [place] [address] CO2 [Moles/Vol] 29 mmol/L Normal 22-32 [facility] Comment on above: Performed By: #### C BCA, BMP, 98698-9, LIVR, 285-1 #### [facility] ([id number]) [address], [address] [place] [address] Creatinine [Mass/Vol] 0.83 mg/dL Normal 0.60-1.30 [facility] Comment on above: Result Comment: METH OD TRACEABLE TO IDMS STANDARD Performed By: #### C BCA, BMP, 52552-5, LIVR, 285-1 #### [facility] ([id number]) [address], [address] [place] [address] GFR/1.73 sq M.predicted among non-blacks MDRD (S/P/Bld) [Vol rate/Area] 90 mL/min/{1.73_m2} Normal >59 [facility] Comment on above: Result Comment: Reported eGFR is based on the CKD-EPI 2020 equation that does not use a race coefficient. Performed By: #### C BCA, BMP, 07689-8, LIVR, 285-1 #### [facility] ([id number]) [address], [address] [place] [address] Glucose [Mass/Vol] 99 mg/dL Normal 65-99 [facility] Comment on above: Performed By: #### C BCA, BMP, 24275-2, LIVR, 2857-1 #### [facility] ([id number]) [address], [address] [place] [address] Potassium [Moles/Vol] 4.2 mmol/L Normal 3.5-5.0 [facility] Comment on above: Performed By: #### C BCA, BMP, 70530-6, LIVR, 2857-1 #### [facility] ([id number]) [address], [address] [place] [address] Sodium [Moles/Vol] 141 mmol/L Normal 134-146 [facility] Comment on above: Performed By: #### C BCA, BMP, 55305-1, LIVR, 2857-1 #### [facility] ([id number]) [address], [address] [place] [address] Urea nitrogen [Mass/Vol] 20 mg/dL Normal 5-27 [facility] Comment on above: Performed By: #### C BCA, BMP, 82914-2, LIVR, 2857-1 #### [facility] ([id number]) [address], [address] [place] [address] CBC AND AUTO DIFFon 11-25-19 24 ABSOLUTE BASOPHIL 0.1 X10E9/L Normal 0.0-0.2 [facility] Comment on above: Performed By: #### C BCA, BMP, 76215-6, LIVR, 2857-1 #### [facility] ([id number]) [address], [address] [place] [address] ABSOLUTE NEUTROPHIL 2.2 X10E9/L Normal 1.5-6.6 [facility] Comment on above: Performed By: #### C BCA, BMP, 00113-5, LIVR, 2857-1 #### [facility] ([id number]) [address] [address] [place] [address] Basophils/100 WBC (Bld) 1.7 % Normal [facility] Comment on above: Performed By: #### C BCA, BMP, 76755-7, LIVR, 2857-1 #### [facility] ([id number]) [address] [facility] [address] [address] [place] [address] Eosinophils (Bld) [#/Vol] 0.1 10*3/uL Normal 0.0-0.4 [facility] Comment on above: Performed By: #### C BCA, BMP, 89708-6, LIVR, 2857-1 #### [facility] ([id number]) [address] [address] Eosinophils/100 WBC (Bld) 1.5 % Normal [facility] Comment on above: Performed By: #### C BCA, BMP, 40280-8, LIVR, 285-1 #### [facility] ([id number]) [address] [address] Erythrocyte distribution width (RBC) [Ratio] 13.6 % Normal 11.5-15.0 [facility] Comment on above: Performed By: #### C BCA, BMP, 18279-8, LIVR, 2856- #### [facility] ([id number]) [address] [address] Hematocrit (Bld) [Volume fraction] 42.9 % Normal 39-49 [facility] Comment on above: Performed By: #### C BCA, BMP, 94100-7, LIVR, 285- #### [facility] ([id number]) [address] [address] Hemoglobin (Bld) [Mass/Vol] 14.4 g/dL Normal 13.0-17.0 [facility] Comment on above: Performed By: #### C BCA, BMP, 05293-0, LIVR, 2857-1 #### [facility] ([id number]) [address] [address] Lymphocytes (Bld) [#/Vol] 1.0 10*3/uL Normal 1.0-3.5 [facility] Comment on above: Performed By: #### C BCA, BMP, 26205-5, LIVR, 285- #### [facility] ([id number]) [address], [address] [place] [address] Lymphocytes/100 WBC (Bld) 26.9 % Normal [facility] Comment on above: Performed By: #### C BCA, BMP, 08251-0, LIVR, 2857- #### [facility] ([id number]) [address], [address] [place] [address] MCH (RBC) [Entitic mass] 31.5 pg Normal 27-34 [facility] Comment on above: Performed By: #### C BCA, BMP, 34987-0, LIVR, 285-1 #### [facility] ([id number]) [address], [address] [place] [address] MCHC (RBC) [Mass/Vol] 33.7 g/dL Normal 32-36 [facility] Comment on above: Performed By: #### C BCA, BMP, 98815-0, LIVR, 285- #### [facility] ([id number]) [address] [place] [address] MCV (RBC) [Entitic vol] 94 fL Normal 80-100 [facility] Comment on above: Performed By: #### C BCA, BMP, 02239-8, LIVR, 285- #### [facility] ([id number]) [address], [address] [place] [address] Monocytes (Bld) [#/Vol] 0.3 10*3/uL Normal 0-0.9 [facility] Comment on above: Performed By: #### C BCA, BMP, 29022-4, LIVR, 2857-1 #### [facility] ([id number]) [address], [address] [place] [address] Monocytes/100 WBC (Bld) 7.8 % Normal [facility] Comment on above: Performed By: #### C BCA, BMP, 77504-3, LIVR, 2857-1 #### [facility] ([id number]) [address], [address] [place] [address] Neutrophils/100 WBC (Bld) 62.1 % Normal [facility] Comment on above: Performed By: #### C BCA, BMP, 91305-6, LIVR, 2857-1 #### [facility] ([id number]) [address], [address] [place] [address] Platelet mean volume (Bld) [Entitic vol] 8.1 fL Normal 7-12 [facility] Comment on above: Performed By: #### C BCA, BMP, 17006-3, LIVR, 2857-1 #### [facility] ([id number]) [address], [address] [place] [address] Platelets (Bld) [#/Vol] 179 10*3/uL Normal 150-450 [facility] Comment on above: Performed By: #### C BCA, BMP, 69737-5, LIVR, 2857- #### [facility] ([id number]) [address], [address] [place] [address] RBC COUNT 4.58 X10E12/L Normal 4.10-5.70 [facility] Comment on above: Performed By: #### C BCA, BMP, 33473-3, LIVR, 2857-1 #### [facility] ([id number]) [address], [address] [place] [address] WBC (Bld) [#/Vol] 3.6 10*3/uL Low 4.0-11.0 [facility] Comment on above: Performed By: #### C BCA, BMP, 98726-5, LIVR, 2857-1 #### [facility] ([id number]) [address], [address] [place] [address] LIVER PANELon 11-25-2023 Albumin [Mass/Vol] 4.1 g/dL Normal 3.2-5.3 [facility] Comment on above: Performed By: #### C BCA, BMP, 30537-4, LIVR, 2857-1 #### [facility] ([id number]) [address], [address] [place] [address] ALP [Catalytic activity/Vol] 74 U/L Normal 39-130 [facility] Comment on above: Performed By: #### C BCA, BMP, 99685-5, LIVR, 2857-1 #### [facility] ([id number]) [address] [place] [address] ALT [Catalytic activity/Vol] 14 U/L Normal 0-40 [facility] Comment on above: Performed By: #### C BCA, BMP, 83371-2, LIVR, 2857-1 #### [facility] ([id number]) [address], [address] [place] [address] AST [Catalytic activity/Vol] 17 U/L Normal 0-41 [facility] Comment on above: Performed By: #### C BCA, BMP, 46764-4, LIVR, 2857-1 #### [facility] ([id number]) [address], [address] [place] [address] Bilirubin [Mass/Vol] 0.7 mg/dL Normal 0.3-1.2 [facility] Comment on above: Performed By: #### C BCA, BMP, 07230-5, LIVR, 2857-1 #### [facility] ([id number]) [address] [place] [address] Bilirubin.direct [Mass/Vol] 0.1 mg/dL Normal 0.0-0.4 [facility] Comment on above: Performed By: #### C BCA, BMP, 76549-1, LIVR, 2857-1 #### [facility] ([id number]) [address] [address] [address] [place] [address] Protein [Mass/Vol] 6.7 g/dL Normal 6.0-8.0 [facility] Comment on above: Performed By: #### C BCA, BMP, 13937-9, LIVR, 2857-1 #### [facility] ([id number]) [address] [facility] [address] [address] [place] [address] Lipid 1996 panelon 4 Cholesterol [Mass/Vol] 160 mg/dL Normal 150-200 [facility] Comment on above: Performed By: #### Crow BCA, BMP, 31274-4, LIVR, 2857-1 #### [facility] ([id number]) [address] [facility] [address] [address] [place] [address] Cholesterol in HDL [Mass/Vol] 65 mg/dL Normal >39 [facility] Comment on above: Result Comment: HDL <40 mg/dL - High Risk HDL > or = 40mg/dL- Desirable HDL >60 mg/dL - Negative Risk Performed By: #### Crow BCA, BMP, 47575-3, LIVR, 2857-1 #### [facility] ([id number]) [address], [facility] [address] [place] [address] Cholesterol in LDL [Mass/Vol] 82 mg/dL Normal <130 [facility] Comment on above: Result Comment: LDL <100 mg/dL - Desirable LDL >160 mg/dL - High Risk Performed By: #### Crow BCA, BMP, 65471-3, LIVR, 2857-1 #### [facility] ([id number]) [address] [place] [address] Cholesterol in VLDL [Mass/Vol] 13 mg/dL Normal 0-30 [facility] Comment on above: Performed By: #### C BCA, BMP, 56948-1, LIVR, 2857-1 #### [facility] ([id number]) [address] [place] [address] CHOLESTEROL:HDL 2.5 Normal 1.0-5.0 [facility] Comment on above: Performed By: #### C BCA, BMP, 73489-3, LIVR, 2857-1 #### [facility] ([id number]) [address] [place] [address] Triglyceride [Mass/Vol] 63 mg/dL Normal 27-150 [facility] Comment on above: Performed By: #### C BCA, BMP, 69739-5, LIVR, 2857-1 #### [facility] ([id number]) [address] [place] [address] Prostate specific Ag [Mass/V ol]on 11-25-2023 PSA SCREEN 1.21 ng/mL Normal 0.00-4.00 [facility] Comment on above: Result Comment: The method used for this test is Christine Lon DXI chemiluminescent immunoassay. Values obtained by different assay methods cannot be used interchangeably. Performed By: #### C BCA, BMP, 56223-0, LIVR, 2857-1 #### [facility] ([id number]) [address] [place] [address] Emre 07-23-2023 [facility]phone [facility] PRESSLER,NEVA ([id number]) 1945 M Date Time Provider Department 07/23/23 TERE BLOUNT During your visit today, we recorded the following information about you: Allergies As of Date: 07/23/2023 (Not on File) Date Reviewed: Never Reviewed Reason for Visit: Received Outside Medical Records [3576] Cmt: Notes received from Dr Parra and sent to scanning Problem List As Of Date: 07/23/2023 (None) Encounter Status:Closed by MARIA E GREER on 07/23/23 Normal [facility] HEMOGLOBINon 07-19-2022 Hemoglobin (Bld) [Mass/Vol] 14.0 g/dL Normal 14.0-18.0 [facility] Comment on above: Performed By: #### H GB #### [facility] [address] [place] [address] Dr. Holden Monae CULTURE URINEon 01-03-2022 CULTURE URINE Culture Observations : No growth Normal [facility] Comment on above: Performed By: #### U RCX #### [facility] [address] [place] [address] Dr. Holden Monae UA RANDOM W/MICROSCOPICon BACTERIA NONE SEEN Normal NONE SEEN [facility] Comment on above: Performed By: #### U AMIC #### [facility] [address] [place] [address] Dr. Holden Monae Bilirubin Ql (U) Negative Normal NEGATIVE [facility] Comment on above: Performed By: #### U AMIC #### [facility] [address] [address] [address] Holden Monae CA OX CRYSTALS FEW Normal [facility] Comment on above: Performed By: #### U AMIC #### [facility] [address] [place] [address] Dr. Holden Monae CAST NONE SEEN Normal NONE SEEN [facility] Comment on above: Performed By: #### U AMIC #### [facility] [address] [place] [address] Dr. Holden Monae Clarity (U) CLEAR Normal CLEAR [facility] Comment on above: Performed By: #### U AMIC #### [facility] [address] [address] [address] Holden Monae Color (U) YELLOW Normal YELLOW [facility] Comment on above: Performed By: #### U AMIC #### [facility] [address] [address] [address] Holden Monae Crystals LM Nom (Urine sed) SEEN Abnormal NONE SEEN [facility] Comment on above: Performed By: #### U AMIC #### [facility] [address] [address] [address] Holden Monae Epithelial cells LM Ql (Urine sed) RARE Normal NONE SEEN /RARE [facility] Comment on above: Performed By: #### U AMIC #### [facility] [address] [place] [address] Dr. Holden Monae Glucose Ql (U) Negative Normal NEGATIVE [facility] Comment on above: Performed By: #### U AMIC #### [facility] [address] [place] [address] Dr. Holden Monae Hemoglobin Ql (U) Negative Normal NEGATIVE [facility] Comment on above: Performed By: #### U AMIC #### [facility] [address] [place] [address] Dr. Holden Monae Ketones Ql (U) Negative Normal NEGATIVE [facility] Comment on above: Performed By: #### U AMIC #### [facility] [address] [address] [address] Holden Monae LEUKOCYTES Negative Normal NEGATIVE [facility] Comment on above: Performed By: #### U AMIC #### [facility] [address] [address] [address] Holden Monae MUCOUS NONE SEEN Normal NONE SEEN [facility] Comment on above: Performed By: #### U AMIC #### [facility] [address] [place] [address] Dr. Holden Monae Nitrite Ql (U) Negative Normal NEGATIVE [facility] Comment on above: Performed By: #### U AMIC #### [facility] [address] [place] [address] Dr. Holden Monae pH (U) 6.0 [pH] Normal 5-9 [facility] Comment on above: Performed By: #### U AMIC #### [facility] [address] [place] [address] Dr. Holden Monae RBC NONE SEEN Abnormal 0-2 [facility] Comment on above: Performed By: #### U AMIC #### [facility] [address] [place] [address] Dr. Holden Monae SPEC GRAVITY 1.020 Normal 1.005-<=1.025 [facility] Comment on above: Performed By: #### U AMIC #### [facility] [address] [place] [address] Dr. Holden Monae UA PROTEIN Negative Normal NEGATIVE/ TRACE [facility] Comment on above: Performed By: #### U AMIC #### [facility] [address] [place] [address] Dr. Holden Monae Urobilinogen Qn (U) 0.2 {Any'U}/dL Normal 0.2 - 1.0 [facility] Comment on above: Performed By: #### U AMIC #### [facility] [address] [place] [address] Dr. Holden Monae WBC 2-5 Abnormal NONE SEEN [facility] Comment on above: Performed By: #### U AMIC #### [facility] [address] [place] [address] Dr. Holden Monae CBC AUTO DIFFon 08-24-2021 BASO # 0.1 103/ul Normal 0.0-0.1 [facility] Comment on above: Performed By: #### C BC #### [facility] [address] [place] [address] Dr. Holden Monae Basophils/100 WBC (Bld) 1.5 % Normal 0.2-2.0 [facility] Comment on above: Performed By: #### C BC #### [facility] [address] [place] [address] Dr. Holden Monae EO # 0.1 103/ul Normal 0.0-0.7 [facility] Comment on above: Performed By: #### C BC #### [facility] [address] [place] [address] Dr. Holden Monae Eosinophils/100 WBC (Bld) 2.1 % Normal 0.9-7.0 [facility] Comment on above: Performed By: #### C BC #### [facility] [address] [place] [address] Dr. Holden Monae Erythrocyte distribution width (RBC) [Ratio] 12.7 % Normal 11.0-15.0 [facility] Comment on above: Performed By: #### C BC #### [facility] [address] [place] [address] Dr. Holden Monae Hematocrit (Bld) [Volume fraction] 45.2 % Normal 42.0-54.0 [facility] Comment on above: Performed By: #### C BC #### [facility] [address] [place] [address] Dr. Holden Monae Hemoglobin (Bld) [Mass/Vol] 14.8 g/dL Normal 14.0-18.0 [facility] Comment on above: Performed By: #### C BC #### [facility] [address] [place] [address] Dr. Holden Monae IG # 0.01 10e3/ul Normal 0.00-0.03 [facility] Comment on above: Performed By: #### C BC #### [facility] [address] [place] [address] Dr. Holden Monae IG % 0.3 % Normal 0.0-0.5 [facility] Comment on above: Performed By: #### C BC #### [facility] [address] [place] [address] Dr. Holden Monae LYMPH # 1.2 103/ul Normal 1.2-3.8 [facility] Comment on above: Performed By: #### C BC #### [facility] [address] [place] [address] Dr. Holden Monae Lymphocytes/100 WBC (Bld) 35.2 % Normal 20.5-60.0 [facility] Comment on above: Performed By: #### C BC #### [facility] [address] [place] [address] Dr. Holden Monae MANUAL DIFF REQ NO Normal [facility] Comment on above: Performed By: #### C BC #### [facility] [address] [place] [address] Dr. Holden Monae MCH (RBC) [Entitic mass] 30.9 pg Normal 25.9-34.0 [facility] Comment on above: Performed By: #### C BC #### [facility] [address] [place] [address] Dr. Holden Monae MCHC (RBC) [Mass/Vol] 32.7 g/dL Normal 29.9-35.2 [facility] Comment on above: Performed By: #### C BC #### [facility] [address] [place] [address] Dr. Holden Monae MCV (RBC) [Entitic vol] 94.4 fL Critically high 80.0-94.0 [facility] Comment on above: Performed By: #### C BC #### [facility] [address] [place] [address] Dr. Holden Monae MONO # 0.3 103/ul Normal 0.3-0.8 [facility] Comment on above: Performed By: #### C BC #### [facility] [address] [place] [address] Dr. Holden Monae Monocytes/100 WBC (Bld) 7.6 % Normal 1.7-12.0 [facility] Comment on above: Performed By: #### C BC #### [facility] [address] [place] [address] Dr. Holden Monae NEUT # 1.8 103/ul Normal 1.4-6.5 [facility] Comment on above: Performed By: #### C BC #### [facility] [address] [place] [address] Dr. Holden Monae Neutrophils/100 WBC (Bld) 53.3 % Normal 43.0-75.0 [facility] Comment on above: Performed By: #### C BC #### [facility] [address] [address] [address] Holden Monae Platelet mean volume (Bld) [Entitic vol] 9.5 fL Normal 9.5-13.5 [facility] Comment on above: Performed By: #### C BC #### [facility] [address] [place] [address] Dr. Holden Monae PLT 168 103/ul Normal 150-450 [facility] Comment on above: Performed By: #### C BC #### [facility] [address] [place] [address] Dr. Holden Monae RBC 4.79 106/ul Normal 4.70-6.10 [facility] Comment on above: Performed By: #### C BC #### [facility] [address] [place] [address] Dr. Holden Monae WBC 3.4 103/ul Critically low 4.0-11.0 [facility] Comment on above: Performed By: #### C BC #### [facility] [address] [place] [address] Dr. Holden Monae LIPID PROFILEon 08-24-2021 CHOL-HDL RATIO NORM SEE BELOW Normal [facility] Comment on above: Result Comment: 3.3 - 4.4 LOW RISK 4.4 - 7.1 AVERAGE RISK 7.1 - 11.0 MODERATE RISK >11.0 HIGH RISK Performed By: #### L IPID, BMP, LIVER #### [facility] [address] [place] [address] Dr. Holden Monae Cholesterol [Mass/Vol] 176 mg/dL Normal <=200 [facility] Comment on above: Performed By: #### L IPID, BMP, LIVER #### [facility] [address] [place] [address] Dr. Holden Monae Cholesterol in HDL [Mass/Vol] 81 mg/dL Normal [facility] Comment on above: Performed By: #### L IPID, BMP, LIVER #### [facility] [address] [place] [address] Dr. Holden Monae Cholesterol in LDL [Mass/Vol] 84.6 mg/dL Normal [facility] Comment on above: Performed By: #### L IPID, BMP, LIVER #### [facility] [address] [place] [address] Dr. Holden Monae Cholesterol.total/ Cholesterol in HDL [Mass ratio] 2.2 {ratio} Normal [facility] Comment on above: Performed By: #### L IPID, BMP, LIVER #### [facility] [address] [place] [address] Dr. Holden Monae HDL NORMAL > or = 60 mg/dl - LO W CARDIOVASCULAR RISK <40 mg/dl - HIGH CARDIOVASCULAR RISK Normal [facility] Comment on above: Performed By: #### L IPID, BMP, LIVER #### [facility] [address] [place] [address] Dr. Holden Monae LDL CALC NORMAL SEE BELOW Normal [facility] Comment on above: Result Comment: <100 mg/dl OPTIMAL 100 - 129 mg/dl NEAR OR ABOVE OPTIMAL 130 - 159 mg/dl BORDERLINE HIGH 160 - 189 mg/dl HIGH >190 mg/dl VERY HIGH Performed By: #### L IPID, BMP, LIVER #### [facility] [address] [place] [address] Dr. Holden Monae Triglyceride [Mass/Vol] 52 mg/dL Normal <=150 [facility] Comment on above: Performed By: #### L IPID, BMP, LIVER #### [facility] [address] [place] [address] Dr. Holden Monae VLDL CALC 10.4 mg/dL Normal [facility] Comment on above: Performed By: #### L IPID, BMP, LIVER #### [facility] [address] [address] [address] Holden Monae LIVER PROFILEon 08-24-2021 Albumin [Mass/Vol] 3.9 g/dL Normal 3.5-5.0 [facility] Comment on above: Performed By: #### L IPID, BMP, LIVER #### [facility] [address] [place] [address] Dr. Holden Monae Albumin/Globulin [Mass ratio] 1.3 {ratio} Normal [facility] Comment on above: Performed By: #### L IPID, BMP, LIVER #### [facility] [address] [place] [address] Dr. Holden Monae ALP [Catalytic activity/Vol] 83 U/L Normal 38-126 [facility] Comment on above: Performed By: #### L IPID, BMP, LIVER #### [facility] [address] [place] [address] Dr. Holden Monae ALT [Catalytic activity/Vol] 21 U/L Normal 21-72 [facility] Comment on above: Performed By: #### L IPID, BMP, LIVER #### [facility] [address] [place] [address] Dr. Holden Monae AST [Catalytic activity/Vol] 17 U/L Normal 17-59 [facility] Comment on above: Performed By: #### L IPID, BMP, LIVER #### [facility] [address] [place] [address] Dr. Holden Monae BILI, CONJUGATED 0.2 mg/dL Normal 0.0-0.3 [facility] Comment on above: Performed By: #### L IPID, BMP, LIVER #### [facility] [address] [place] [address] Dr. Holden Monae Bilirubin [Mass/Vol] 0.9 mg/dL Normal 0.2-1.3 [facility] Comment on above: Performed By: #### L IPID, BMP, LIVER #### [facility] [address] [place] [address] Dr. Holden Monae Globulin (S) [Mass/Vol] 3.1 g/dL Normal [facility] Comment on above: Performed By: #### L IPID, BMP, LIVER #### [facility] [address] [place] [address] Dr. Holden Monae Protein [Mass/Vol] 7.0 g/dL Normal 6.1-8.2 [facility] Comment on above: Performed By: #### L IPID, BMP, LIVER #### [facility] [address] [place] [address] Dr. Holden Monae PROF CHEM 8 (BAS METB)on Anion gap [Moles/Vol] 13.2 mmol/L Normal [facility] Comment on above: Performed By: #### L IPID, BMP, LIVER #### [facility] [address] [place] [address] Dr. Holden Monae Calcium [Mass/Vol] 9.4 mg/dL Normal 8.4-10.2 [facility] Comment on above: Performed By: #### L IPID, BMP, LIVER #### [facility] [address] [place] [address] Dr. Holden Monae Chloride [Moles/Vol] 104 mmol/L Normal 98-107 [facility] Comment on above: Performed By: #### L IPID, BMP, LIVER #### [facility] [address] [place] [address] Dr. Holden Monae CO2 [Moles/Vol] 28.8 mmol/L Normal 22.0-30.0 [facility] Comment on above: Performed By: #### L IPID, BMP, LIVER #### [facility] [address] [place] [address] Dr. Holden Monae Creatinine [Mass/Vol] 0.81 mg/dL Normal 0.66-1.25 [facility] Comment on above: Performed By: #### L IPID, BMP, LIVER #### [facility] [address] [place] [address] Dr. Holden Monae EGFR-AF SENEGALESE >60 Normal >=60 [facility] Comment on above: Performed By: #### L IPID, BMP, LIVER #### [facility] [address] [place] [address] Dr. Holden Monae EGFR-NON AF SENEGALESE >60 Normal >=60 [facility] Comment on above: Performed By: #### L IPID, BMP, LIVER #### [facility] [address] [place] [address] Dr. Holden Monae Glucose [Mass/Vol] 92 mg/dL Normal 74-106 [facility] Comment on above: Performed By: #### L IPID, BMP, LIVER #### [facility] [address] [address] [address] Holden Monae Potassium [Moles/Vol] 4.0 mmol/L Normal 3.4-5.0 [facility] Comment on above: Performed By: #### L IPID, BMP, LIVER #### [facility] [address] [address] [address] Holden Monae Sodium [Moles/Vol] 142 mmol/L Normal 137-145 [facility] Comment on above: Performed By: #### L IPID, BMP, LIVER #### [facility] [address] [address] [address] Holden Monae Urea nitrogen [Mass/Vol] 11.0 mg/dL Normal 9.0-20.0 [facility] Comment on above: Performed By: #### L IPID, BMP, LIVER #### [facility] [address] [place] [address] Dr. Holden Monae Urea nitrogen/Creatinin e [Mass ratio] 13.6 mg/mg Normal [facility] Comment on above: Performed By: #### L IPID, BMP, LIVER #### [facility] [address] [place] [address] Dr. Holden Monae Superficial Wound Cultureon 10-27-2018 Superficial Wound Culture INFECTION FOLLOWING A PROCEDURE; No Growth 2 Days PERFORMED BY: [place] [address] PATHOLOGIST MANAGER MATERIALS MANAGEMENT SEAN HUMPHREY M.D. Normal [facility] Comment on above: Performed By: #### C USUP #### [address] Encounters Encounter Date Encounter Type Care Provider Facility Start: 05-08-2024 End: 05-08-2024 Lesterill Shayy Pruitt APRN.LOADERS Work Phone: Ophthalmology Comment on above: Refill Request Start: 04-25-2024 End: 04-25-2024 ambulatory Casey Iniguez DPCarlo Facility:[facility] Start: 04-20-2024 End: 04-20-2024 ambulatory DEV NADERER Not Available Start: 04-16-2024 End: 04-16-2024 ambulatory TERE BLOUNT Facility:[facility] Start: 04-16-2024 End: 04-16-2024 Patient encounter procedure Tere Blount MD Work Phone: Ophthalmology Comment on above: Conjunctival intraep ithelial neoplasm (Primary Dx) Start: 03-23-2024 End: 03-23-2024 ambulatory NANI L MAGDI Not Available Start: 01-16-2024 End: 01-16-2024 ambulatory DEV A NADERER Facility:[facility] Start: 01-16-2024 End: 01-16-2024 Patient encounter procedure Tere Blount MD Work Phone: Ophthalmology Comment on above: Conjunctival intraep ithelial neoplasm (Primary Dx) Start: 11-25-2023 End: 11-26-2023 ambulatory DEV LISSETHERER [facility] Start: 11-25-2023 End: 11-25-2023 ambulatory DEV NADERER Not Available Start: 10-17-2023 Refill Shayy Cindea LEAD DESIGNER.[employer] Work Phone: Ophthalmology Comment on above: Refill Request Start: 10-15-2023 End: 10-15-2023 ambulatory DEV A NADERER Facility:[facility] Start: 10-15-2023 End: 10-15-2023 Patient encounter procedure Tere Blount MD Work Phone: Ophthalmology Comment on above: Conjunctival intraep ithelial neoplasm (Primary Dx) Start: 10-14-2023 End: 10-14-2023 ambulatory NANI L MAGDI Not Available Start: 09-19-2023 Refill Shayy Cindea LEAD DESIGNER.[employer] Work Phone: Ophthalmology Comment on above: Refill Request Start: 09-17-2023 End: 09-17-2023 ambulatory DEV A NADERER Facility:[facility] Start: 09-17-2023 End: 09-17-2023 Patient encounter procedure Tere Blount MD Work Phone: Ophthalmology Comment on above: Conjunctival intraep ithelial neoplasm (Primary Dx) Start: 08-15-2023 End: 08-15-2023 ambulatory ELVIA OKEEFE Facility:[facility] Start: 07-23-2023 Telephone encounter Tere crawford MD Work Phone: Ophthalmology Comment on above: Received Outside [facility] Records (Notes received from Dr Parra and sent to scanning) Start: 07-22-2023 End: 07-22-2023 ambulatory Andrius Vytautdestiny Alanitis Facility:[facility] Start: 07-08-2023 End: 07-08-2023 ambulatory Andrius Biankaytclaritaas Waqasitis Facility:[facility] Start: 07-01-2023 End: 07-01-2023 ambulatory Andyazmin Alanitis Facility:[facility] Start: 06-03-2023 End: 06-03-2023 ambulatory Andyazmin Alanitis Facility:[facility] Start: 07-19-2022 End: 07-20-[address] DEV BARBER Facility: Start: 01-03-2022 End: 01-03-[address] DEV BARBER Facility:[facility] Start: 08-24-2021 End: 08-25-[address] DEV BARBER Facility:[facility] Start: 10-27-2018 End: 10-27-2018 Patient encounter procedure Dalton Romo Facility:[facility] Procedures Date Procedure Procedure Detail Performing Clinician Start: 04-16-2024 End: 04-16-2024 Xtrnl ocular photog w/i&r docar medical progre Tere Blount MD Work Phone: Start: 01-16-2024 End: 01-16-2024 Xtrnl ocular photog w/i&r docmt medical rayo Pruitt APRN.CNP Work Phone: Start: 08-24-[address] DEV PAYAN Comment on above: Performed By: #### P [facility] #### [facility] [address] [place] [address] Dr. Holden Monae Plan of Treatment Date Care Activity Detail Author Start: 11-24-2026 Diabetes Screening Diabetes Screenin g [facility] Start: 06-11-2024 End: 06-11-2024 Patient encounter procedure 06/11/2024 8:00 AM EST Office Visit [facility] [address] [address] Tere Blount MD [address] [place] [address] 06/[address] Tere Blount for 2 month f/u Ophthalmology Comment on above: 06/[address] Tere Blount for 2 month f/u Start: 04-16-2024 End: 04-16-2024 Patient encounter procedure 04/16/2024 9:00 AM EDT Office Visit [facility] [address] [place] [address] Tere Blount MD [address] [place], [place] [id number] 3 month follow up Ophthalmology Comment on above: 3 month follow up Start: 04-05-2024 Covid-19 Vaccine ( season) Covid-19 Vaccine ( season) [facility] Start: 04-05-2024 Covid-19 Vaccine ( season) Covid-19 Vaccine ( season) [facility] Start: 04-05-2024 Influenza vaccination Influenza Vacc ine (#1) [facility] Start: 08-05-2023 Advance Directive Discussion Advance Directive Discussion [facility] Start: 08-05-2023 Behavioral Health Screening Behavioral Health Screening [facility] Start: 08-05-2023 [facility] Start: 04-05-2023 Influenza vaccination Influenza Vacc ine (#1) [facility] Start: 08-05-2022 Advance Directive Discussion Advance Directive Discussion [facility] Start: 08-05-2022 [facility] Start: 06-13-2016 Shingrix Vaccine (1 of 2) Shingrix V accine (1 of 2) [facility] Start: 06-13-2016 Shingrix Vaccine (2 of 3) Shingrix V accine (2 of 3) [facility] Start: 2010 Pneumococcal Vaccine : 65+ (1 of 1 - PCV) Pneumococcal Vaccine: 65+ (1 of 1 - PCV) [facility] Start: 2005 RSV Vaccine (1 - 1-d ose 60+ series) RSV Vaccine (1 - 1-dose 60+ series) [facility] Start: 1995 Shingrix Vaccine (1 of 2) Shingrix V accine (1 of 2) [facility] Start: 1990 Diabetes Screening Diabetes Screenin g [facility] Start: 1964 Shingrix Vaccine (1 of 2) Shingrix V accine (1 of 2) [facility] Start: 1964 Urine microalbumin profile DTaP,Tdap,Td Vaccine (1 - Tdap) [facility] Start: 1963 Anxiety Screening Anxiety Screening [facility] Start: 1963 Depression Screening Depression Scre ening [facility] Start: 1963 Hepatitis C screening Hepatitis C Sc reening [facility] Start: 1951 Pneumococcal Vaccine : 65+ (1 of 2 - PCV) Pneumococcal Vaccine: 65+ (1 of 2 - PCV) [facility] Start: 1950 Covid-19 Vaccine (#1) Covid-19 Vacci ne (#1) [facility] Start: 1945 Covid-19 Vaccine (#1) Covid-19 Vacci ne (#1) [facility] Immunizations Immunization Date Immunization Notes Care Provider Fa cility 05-14-2023 influenza virus vacc ine, unspecified formulation Tere Blount MD Work Phone: [facility] Payers Date Payer Category Payer Medicare [id number] 2022 Medicare [id number] 2018 Private Health Insurance MEB [id number] 2018 Self-pay 1959 Medicare [id number] 1945 Unknown [id number] 2.16.84 [id number] 1945 Unknown [id number] 2.16.84 [id number] 1945 Unknown [id number] 2.16.84 [id number] 1945 Unknown [id number] 2.16.8 [id number] 1945 Unknown [id number] 2.16.84 [id number] 1945 Unknown [id number] 2.16.84 0.1.253253.3.579.2.1259 1945 Unknown [id number] 2.16.84 0.1.199289.3.579.2.1259 1945 Unknown [id number] 2.16.84 [id number] 1945 Unknown [id number] 2.16.84 [id number] 1945 Unknown [id number] 2. [id number] 1945 Unknown [id number] 2.16 [id number] 1945 Unknown [id number] 2. [id number] 1945 Unknown [id number] 2.16 [id number] 1945 Unknown [id number] . [id number] Unknown [id number] Social History Date Type Detail Facility Tobacco smoking stat [facility] Tobacco smoking consumption unknown [facility] Start: 1945 [facility] Start: 08-15-2023 End: 04-16-2024 Gender identity Not on file [facility] Start: 08-15-2023 Tobacco smoking stat us NHIS Ex-smoker [facility] History of tobacco use Current smoker [facility] History of tobacco use Cigarette Smoker [facility] Start: 08-15-2023 Tobacco use and exposure Smokeless t obacco non-user [facility] Start: 09-17-2023 End: 04-16-2024 Alcohol intake Current drinker of alcohol (finding) [facility] Start: 08-15-2023 End: 04-16-2024 History of Social function [facility] National Score (1-10 0), lower number is lower risk 53 [facility] Clinical Notes 08-15-2023 to 05-08-2024 Telephone Encounter - Maria E Greer - 05/08/2024 10:32 AM EDTTelephone Encounter - Maria E Greer - 05/08/2024 10:32 AM Tere Gonzalez MD - 04/16/2024 8:58 AM EDT Note Date & Type Note Facility 05-08-2024 Telephone encount er Note Neva Conklin [facility] [id number] 04/16/24 Fv 06/11/24 Pharmacy electronically requesting refills as follows: Requested Prescriptions Pending Prescriptions Disp Refills fluorouracil ophthalmic solution 1% (10 mg/mL) (IP-CPD) 10 mL 1 Sig: Use 1 Drop in the left eye four times daily for 7 days. Please review and advise. Maria E Greer Assessment & Plan Tere Blount MD filed at 04/16/2024 1:42 PM Status: Signed 78 year old male, MELISSA OS, s/p [...] 1 month for prescription refill (knee surgery) [facility] 05-08-2024 Miscellaneous Notes Formattin g of this note is different from the original. Neva Conklin [facility] [id number] 04/16/24 Fv 06/11/24 Pharmacy electronically requesting refills as follows: Requested Prescriptions Pending Prescriptions Disp Refills fluorouracil ophthalmic solution 1% (10 mg/mL) (IP-CPD) 10 mL 1 Sig: Use 1 Drop in the left eye four times daily for 7 days. Please review and advise. Maria E Greer Assessment & Plan Tere Blount MD filed at 04/16/2024 1:42 PM Status: Signed 78 year old male, MELISSA OS, s/p [...] : Diffuse MELISSA OS SP: 5FU #1 1/12/24- 08/23/23, 5FU #2 09/18/23- 09/25/23 OCT 01/16/24: thickened farmer's layer. No definite MELISSA TODAY RECC : 4-9 cornea 4 mm Plan: 5 FU restarted RTC in 2 months Will call in 1 month for prescription refill (knee surgery) documented in this encounter [facility] 04-28-2024 Note Procedure: Standing AP views of [...] Signed, Electronically Signed in Other Vendor System) [facility] 04-28-2024 Note Procedure: Orthoroen tgenogram. Technique: [...] Signed, Electronically Signed in Other Vendor System) [facility] 04-28-2024 Note Procedure: MRI of th [...] Signed, Electronically Signed in Other Vendor System) [facility] Comment on above: Order Comment: 04/23/24at -7:21 left message at [phone] fax us a order order scanned in at 9am. good to go. 04-16-2024 Note Date of Procedure 04/16/2024. Training And Development Assistant Information [employer] Worker: CLAUDIA. Stop time: 9:53 AM. Imaging Comments Best possible images obtained and Best images possible due to patient disposition . Notes [facility] 04-16-2024 Note Date of Procedure 04/16/2024. Training And Development Assistant Information [employer] Worker: Jael Anna Stop time: 9:54 AM. Imaging Comments Best possible images obtained and Best images possible due to patient disposition . Notes [facility] 04-16-2024 Note HNO ID: [id number] Author: TERE BLOUNT MD Service: ? Author [...] Blount MD April 16, 2024 1:42 PM [facility] 04-16-2024 History of Presen t illness [...] 2024 1:42 PM documented in this encounter [facility] 01-16-2024 Note Date of Procedure 01/16/2024. Training And Development Assistant Information [employer] Worker: NASIR Stop time: 9:44 AM. Difficulty with imaging/ANDREA Munoz . Notes Thickened Farmer's layer. No signs of MELISSA [facility] 01-16-2024 Note Date of Procedure 01/16/2024. Training And Development Assistant Information [employer] Worker: Jael Anna Stop time: 9:44 AM. Notes No MELISSA recurrence [facility] 01-16-2024 Note HNO ID: [id number] Author: TERE BLOUNT MD Service: ? Author [...] Blount MD January 16, 2024 10:19 AM [facility] 01-16-2024 History of Presen t illness [...] 2024 10:19 AM documented in this encounter [facility] 10-15-2023 Note HNO ID: [id number] Author: TERE BLOUNT MD Service: ? Author [...] with all of its relevant components. Tere lBount MD October 15, 2023 9:15 AM [facility] 10-15-2023 History of Presen t illness [...] 2023 9:15 AM documented in this encounter [facility] 09-19-2023 Miscellaneous Notes Formattin g of this note is different from the original. Neva Conklin [facility] [id number] Lv 09/17/23 Fv 10/15/23 Pharmacy electronically requesting refills as follows: Requested Prescriptions Pending Prescriptions Disp Refills [id number] 3.5 MG/ML-10,000 UNIT/ML-0.1% EYE DROPS 5 mL [...] in 4 weeks documented in this encounter [facility] 09-17-2023 Note HNO ID: [id number] Author: TERE BLOUNT MD Service: ? Author [...] Blount MD September 17, 2023 9:06 AM [facility] 09-17-2023 History of Presen t illness [...] 2023 9:06 AM documented in this encounter [facility] 08-15-2023 Note HNO ID: [id number] Author: TERE BLOUNT MD Service: ? 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, other specified sites 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, other specified sites [facility] 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, other specified sites [facility] 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, other specified sites [facility] 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, other specified sites [facility] 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, other specified sites documented in this encounter [facility] Summary Purpose Family History No Family History [...] section and content) DATE CREATED AUTHOR 11/02/2018 [facility] DATE CREATED AUTHOR AUTHOR'S ORGANIZ ATION 07/27/2022 [facility] DATE CREATED AUTHOR AUTHOR'S ORGANIZ ATION 11/27/2023 [facility] DATE CREATED AUTHOR AUTHOR'S ORGANIZ ATION 04/18/2024 [facility] DATE CREATED AUTHOR AUTHOR'S ORGANIZ ATION 04/21/2024 [facility] dical [facility] DATE CREATED AUTHOR AUTHOR'S ORGANIZ ATION 04/30/2024 [facility] Source Comments (unrecognize d section and content) In the event this informatio n is protected by the Federal Confidentiality of Alcohol and Drug Abuse Patient Records regulations: The Federal rules restrict any use of the information to criminally investigate or prosecute any alcohol or drug abuse patient.[facility] Hospital[facility] the event this information is protected by the Federal Confidentiality of Alcohol and Drug Abuse Patient Records regulations: The Federal rules restrict any use of the information to criminally investigate or prosecute any alcohol or drug abuse patient.[facility] Hospital[facility] the event this information is protected by the Federal Confidentiality of Alcohol and Drug Abuse Patient Records regulations: The Federal rules restrict any use of the information to criminally investigate or prosecute any alcohol or drug abuse patient.[facility] Hospital[facility] the event this information is protected by the Federal Confidentiality of Alcohol and Drug Abuse Patient Records regulations: The Federal rules restrict any use of the information to criminally investigate or prosecute any alcohol or drug abuse patient.[facility] Hospital[facility] the event this information is protected by the Federal Confidentiality of Alcohol and Drug Abuse Patient Records regulations: The Federal rules restrict any use of the information to criminally investigate or prosecute any alcohol or drug abuse patient.[facility] HospitalIn the event this information is protected by the Federal Confidentiality of Alcohol and Drug Abuse Patient Records regulations: The Federal rules restrict any use of the information to criminally investigate or prosecute any alcohol or drug abuse patient.[facility] HospitalIn the event this information is protected by the Federal Confidentiality of Alcohol and Drug Abuse Patient Records regulations: The Federal rules restrict any use of the information to criminally investigate or prosecute any alcohol or drug abuse patient.[facility] HospitalIn the event this information is protected by the Federal Confidentiality of Alcohol and Drug Abuse Patient Records regulations: The Federal rules restrict any use of the information to criminally investigate or prosecute any alcohol or drug abuse patient.[facility] Reason for Visit (unrecogniz ed section and content) Reason Comments Received Outside Medical Records Notes r eceived from Dr Parra and sent to scanning Reason Comments MELISSA Left Eye 4 week f/u; 5FU #1 j an 07-23 Reason Comments Refill Request Reason Comments diffuse MELISSA OS s/p cycle #1 5FU 08/05 09/28 - 08/23/23, s/p cycle #2 5FU 09/18/23 - 09/25/23 Reason Comments MELISSA Follow Up OS; s/p cycle #1 5FU 08/16/23 - 08/23/23, s/p cycle #2 5FU 09/18/23 - 09/25/23 Care Teams (unrecognized sec tion and content) [employer]er Relationship Specialty Start Date End Date Elvia Okeefe PCP - General Family Medicine 01/04/16 [employer] As[employer]er Relationship Specialty Start Date End Date Dev Barber [address] [place] [address] PCP - General Family Medicine 09/17/23 Blasting Cap Assembler Relationship Specialty Start Date End Date Dev Barber [address] [place] [address] PCP - [facility] 09/17/23 Blasting Cap Assembler Relationship Specialty Start Date End Date Dev Barber [address] [place] [address] PCP - [facility] 09/17/23 Blasting Cap Assembler Relationship Specialty Start Date End Date Dev Barber [address] [place] [address] PCP - [facility] 09/17/23 Blasting Cap Assembler Relationship Specialty Start Date End Date Dev Barber [address] [place] [address] PCP - [facility] 09/17/23 FOR RECORDS PERTAINING TO PATIENTS WHO [...] BE BASED ON THE PRIMARY CLINICAL RECORDS. [facility]. provides no warranty or guarantee of the accuracy or completeness of information in this document.
[2024-05-18 07:07] LABS: Basophils Absolute Auto 0.1 10^3/uL (0.0-0.1); Basophils Percent Auto 1.5 % (0.2-2.0); Eosinophils Absolute Auto 0.1 10^3/uL (0.0-0.7); Eosinophils Percent Auto 2.2 % (0.9-7.0); Hematocrit 43.5 % (42.0-54.0); Hemoglobin 14.3 g/dL (14.0-18.0); Lymphocytes Absolute Auto 1.6 10^3/uL (1.2-3.8); Mean Corpuscular HGB Conc 32.9 g/dL (29.9-35.2); Mean Corpuscular Hemoglobin 31.2 pg (25.9-34.0); Mean Platelet Volume 8.9 fL (9.5-13.5); Monocytes Absolute Auto 0.4 10^3/uL (0.3-0.8); Monocytes Percent Auto 7.6 % (1.7-12.0); Neutrophils Absolute Auto 2.5 10^3/uL (1.4-6.5); Neutrophils Percent Auto 54.7 % (43.0-75.0); Platelet Count 191 10^3/uL (150-450); Red Blood Count 4.58 10^6/uL (4.70-6.10); Red Cell Distribution Width 12.8 % (11.0-15.0); White Blood Count 4.6 10^3/uL (4.0-11.0)
[2024-05-18] MEDS: 0.9 % SODIUM CHLORIDE 500 ML 50 ML IV (08:12)
[2024-05-18] MEDS: CEFAZOLIN SODIUM/DEXTROSE,ISO 2 GM/50 ML PIGGYBACK IV ×3 (08:13→23:46)
[2024-05-18] MEDS: DEXAMETHASONE SOD PHOS (PF) 10 MG/ML VIAL IV (08:13)
[2024-05-18] MEDS: TRAMADOL HCL 50 MG TABLET PO (08:13)
[2024-05-18] MEDS: CELECOXIB 200 MG CAPSULE PO (08:14)
--- NOTE | 2024-05-18 08:22 | PC.NURSE ---
0805: time out completed as charted. block began at 0758 and was completed at 0803. pt tolerated procedure well and had no complaints. vitals monitored by residential mortgage underwriter throughout the procedure. once completed pts bed in lowest position with siderails up and call light within reach.
[2024-05-18] MEDS: TRANEXAMIC ACID 1,000 MG in 0.9 % SODIUM CHLORIDE 100 ML 440 MG IV ×2 (08:46→11:18)
[2024-05-18] MEDS: LACTATED RINGER'S SOLUTION 1,000 ML 50 ML IV (09:31)
[2024-05-18] MEDS: BUPIVACAINE HCL 0.5% PF 50 MG/10 ML VIAL 20 ML INJ (10:02)
[2024-05-18] MEDS: LIDOCAINE HCL 1%-EPINEPHRINE 1:100,000 20 ML MDV INJ (10:02)
[2024-05-18] MEDS: VANCOMYCIN HCL 1,000 MG VIAL 1000 MG TOPICAL (11:10)
--- NOTE | 2024-05-18 12:07 | XR_ITS ---
The [address] [address] Patient Name: MONA SONI MRN: [id number] date: 1945 Sex: M Assigned Patient Location: [facility] Current Patient Location: [facility] Accession/Order Number: [id number] Exam Date: 05/18/2024 12:40 Report Date: 05/18/2024 12:57 At the request of: SHERIE LANG Procedure: XR knee LT 4V EXAMINATION: XR knee LT 4V HISTORY: post op COMPARISON: No relevant comparison available. FINDINGS: BONES: Total joint replacement with the orthopedic components appearing seated in anatomic alignment. SOFT TISSUES: Postprocedural subcutaneous and joint air and fluid OTHER: Negative. XR/XR knee LT 4V IMPRESSION: 1. Total joint replacement with expected postsurgical findings. Electronically authenticated by: TYLER PIKE Date: 05/18/2024 12:57
[2024-05-18] MEDS: HYDROMORPHONE HCL 0.5 MG/0.5 ML SYRINGE IV ×2 (12:12→12:23)
--- NOTE | 2024-05-18 12:12 | PM.ORPRC ---
Procedure Note Date of procedure: 05/18/24 Pre-op diagnosis: Left knee arthritis Post-op diagnosis: same as pre-op Procedure: Patient is a 78-year-old male who presents for left total knee arthroplasty. Patient does have severe osteoarthritis of the left knee. 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 He has exhausted conservative management has elected for total knee arthroplasty. We did discuss risk and benefits of the surgery in detail. Discussed indications for the procedure as well. After discussion of risk and benefits patient elects to proceed forward with left total knee arthroplasty. Informed consent was obtained. Surgical site was marked. Patient was then taken back to the operative suite where he underwent anesthesia sedation and intubation without complications. His left lower extremity was then isolated and prepped in the usual sterile fashion. We then had a timeout and the patient, procedure, operative side were confirmed. Stated to exsanguinate the limb and inflated the tourniquet. We then started with a standard midline approach to the knee. Dissected through skin and subcutaneous tissue. Identified the retinaculum. We then made a medial parapatellar arthrotomy taking care to leave a good cuff of tissue to repair. We then proceeded to excise the infrapatellar fat pad. The suprapatellar synovium was removed. We performed a minimal medial peel secondary to the patient's valgus deformity. We then proceeded to ángela the patella. We then performed a freehand cut of the patella down to about 13 and 14 mm. We selected a size 38 mm patella. The holes were drilled for the patella. Once we flexed up the knee we proceeded to place on the pretemplated guide made by [employer]. The size was 10 for the femur. We then proceeded to secure the guide in place to make our distal femur cut. We left our pins in place and then proceeded to sublux the tibia forward with a Hohmann. We then proceeded to place the pretty templated tibial cut guide on the tibia. We pinned and checked the alignment which was good. We then performed our proximal tibia cut through the premade guide. Following this we then checked our flexion extension gap. The extension gap was snug with a size 10 mm poly however we did have some medial laxity which is to be expected. There was severe degenerative changes of the femur and tibia noted particular laterally. We then proceeded to flex the knee up. We placed our 4-in-1 cut guide on the distal femur. We performed our cuts. An osteotome was used to remove all of the bony fragments. We then proceeded to place a lamina investment banking associate into the knee. We removed any posterior osteophytes. We removed the medial and lateral meniscus in its entirety. We did notice that there was significant medial laxity. The MCL was intact but attenuated. We then performed a lateral release of the popliteus utilizing a pie crusting technique with a spinal needle. We also released the lateral capsule and IT band utilizing a knife and Bovie. This improved our gap balancing. We then proceeded the trial with a size 9 tibia and 10 femur. Trialed with a size 11 and 12 poly. [place] we had more stability with a size 12 poly. Elected to go to strict constrained due to the laxity of the MCL although it was intact. We then proceeded to drill and punch for the keel of the tibia. We copiously irrigated the knee with normal saline Irrisept solution. Final implants were selected which was a size 38 patella, size 10 femur and size 9 tibia. Cement was mixed on the back table and then applied to the implants the implants were impacted to the appropriate position. 12 poly to allow the cement to polymerized. Once it was polymerized we proceeded to trial the knee. Had good extension and flexion. Patella was tracking laterally therefore we performed a lateral release which helped our tracking. We then trialed a size 13 poly which was too tight in my opinion lacking some extension. We then elected to select a size 12 mm constrained poly which was placed. We then trialed the knee once again and it was very stable. The tourniquet was released and hemostasis was obtained. We proceeded to place vancomycin powder into the wound. Wound was closed in a layered fashion. 0 Ethibond and 1 Vicryl were used for the arthrotomy with a #1 strata fix. The subcutaneous layer was closed with 0 Vicryl 2-0 Vicryl followed by 3-0 running strata fix some subcuticular layer. Dermabond was applied followed by soft sterile dressing. Patient was awoken from anesthesia and taken to the PACU in stable condition. Be weightbearing as tolerated to left lower extremity. Keep surgical dressings in place until follow-up appointment. Postop antibiotics will be Ancef for every 8 hours for 24 hours. Will order Eliquis DVT prophylaxis. Hospitalist will be on for medical management. PT OT eval. Anticipate discharge to home tomorrow follow-up in office in 2 weeks. Anesthesia: General-ET Surgeon: Jay Mendez Estimated blood loss (mL): 50 IV fluids (mL): 500 Urine output (mL): 200 Pathology: none sent Condition: stable Disposition: floor
[2024-05-18] MEDS: MORPHINE SULFATE 2 MG/ML SYRINGE IV ×3 (12:34→22:34)
[2024-05-18] MEDS: OXYCODONE HCL/ACETAMINOPHEN 5MG/325MG 1 TAB PO ×2 (12:45→18:39)
[2024-05-18] MEDS: 0.9 % SODIUM CHLORIDE 1,000 ML 100 ML IV ×2 (12:52→22:12)
--- NOTE | 2024-05-18 19:39 | P.PN_ITS ---
Progress Note: Subjective Subjective Interval history: Asked to see patient in consultation status post left knee replacement. Prolonged operative course otherwise surgery was unremarkable. Discussed care with nursing staff, no issues in the post anesthesia timeframe. When I saw patient up on the floor, resting comfortably in bed, hard of hearing, denied any other complaints such as shortness of breath or chest pain. Pain fairly well-controlled Exam Constitutional Vital Signs, click to edit/add: Last Vital Signs Temp 98 F 05/18/24 19:13 Pulse 107 H 05/18/24 19:19 Resp 12 05/18/24 19:19 BP 107/68 05/18/24 19:13 Pulse Ox 92 L 05/18/24 19:13 O2 Del Method Room Air 05/18/24 19:13 O2 Flow Rate 2 05/18/24 13:50 Documenting provider has reviewed patient's vital signs: yes Common normals: no apparent distress Chest Common normals: inspection of chest normal Respiratory Common normals: normal respiratory effort and no retractions Cardio Common normals: regular rhythm; irregular rate Rate: tachycardic GI Common normals: Normal to inspection, nondistended, normoactive bowel sounds present Extremity Common normals: abnormal to inspection (Dressing in place) Progress Note: Objective Labs Labs: Short CBC 05/18/24 Range/Units 07:03 WBC 4.6 (4.0-11.0) 10^3/uL Hgb 14.3 (14.0-18.0) g/dL Hct 43.5 (42.0-54.0) % Plt Count 191 (150-450) 10^3/uL Progress Note: A&P Assessment and Plan (1) Osteoarthritis of left knee: Qualifiers: Osteoarthritis type: primary Qualified Code(s): M17.12 - Unilateral primary osteoarthritis, left knee (2) COPD (chronic obstructive pulmonary disease): Plan Admission criteria: Patient admitted status post prolonged surgical intervention for knee replacement. Plan per orthopedics COPD-lungs clear, will maintain current home medications. Mild tachycardia as noted on vital signs-likely related to pain and postanesthesia, would hold off on fluid bolus, monitor overnight, consider repeat labs in a.m. Admission status: Patient mated to the observation status status post surgical intervention for left knee osteoarthritis, knee replacement completed, somewhat of prolonged surgery. Monitoring overnight. Medically necessary treatment will span only 1 midnight. Observation status. Urinary Catheter Management Urinary Catheter Management Urethral: Cath placed during this visit: no
--- NOTE | 2024-05-18 20:22 | RESP.RT ---
No HHN given, pt refused. Pt already took Spiriva earlier today.
[2024-05-18] MEDS: ACETAMINOPHEN 325 MG TABLET 650 MG PO (23:50)
[2024-05-19] VITALS: BP 98/66; PULSE 95; TEMP 36.6; O2SAT 94
[2024-05-19 04:00] VITALS: BP 111/68; PULSE 94; TEMP 36.8; O2SAT 96
--- NOTE | 2024-05-19 04:50 | RESP.RT ---
Pt has Spiriva here from home and does not [facility] to take [facility]
[2024-05-19] MEDS: OXYCODONE HCL/ACETAMINOPHEN 5MG/325MG 1 TAB PO (04:53)
--- NOTE | 2024-05-19 05:30 | P.PN_ITS ---
Progress Note: Subjective Subjective Interval history: No complaints this morning, pain well-controlled. Denies chest pain or shortness of breath, does have some mild dysuria Exam Constitutional Vital Signs, click to edit/add: Last Vital Signs Temp 98.2 F 05/19/24 04:00 Pulse 94 H 05/19/24 04:00 Resp 12 05/19/24 04:00 BP 111/68 05/19/24 04:00 Pulse Ox 96 05/19/24 04:00 O2 Del Method Room Air 05/19/24 04:00 O2 Flow Rate 2 05/18/24 13:50 Documenting provider has reviewed patient's vital signs: yes Common normals: no apparent distress Chest Common normals: inspection of chest normal Respiratory Common normals: normal respiratory effort and no retractions Cardio Common normals: regular rhythm; irregular rate Rate: tachycardic GI Common normals: Normal to inspection, nondistended, normoactive bowel sounds present Extremity Common normals: abnormal to inspection (Dressing in place) Progress Note: Objective Labs Labs: Short CBC 05/18/24 Range/Units 07:03 WBC 4.6 (4.0-11.0) 10^3/uL Hgb 14.3 (14.0-18.0) g/dL Hct 43.5 (42.0-54.0) % Plt Count 191 (150-450) 10^3/uL Progress Note: A&P Assessment and Plan (1) Osteoarthritis of left knee: Qualifiers: Osteoarthritis type: primary Qualified Code(s): M17.12 - Unilateral primary osteoarthritis, left knee (2) COPD (chronic obstructive pulmonary disease): Plan Admission criteria: Patient admitted status post prolonged surgical intervention for knee replacement. Plan per orthopedics COPD-lungs clear, will maintain current home medications. Discharged home with current medications Mild tachycardia as noted on vital signs-likely related to pain and postanesthesia, better this a.m. Dysuria-check urinalysis and was fine Acute blood loss anemia secondary to knee replacement surgery Admission status: Patient mated to the observation status status post surgical intervention for left knee osteoarthritis, knee replacement completed, somewhat of prolonged surgery. Monitoring overnight. Medically necessary treatment will span only 1 midnight. Observation status. Urinary Catheter Management Urinary Catheter Management Urethral: Cath placed during this visit: no
[2024-05-19 07:36] LABS: Bilirubin Urine NEGATIVE (NEGATIVE); Blood Urine NEGATIVE (NEGATIVE); Clarity Urine CLEAR (CLEAR); Color Urine YELLOW (YELLOW); Glucose Urine UA NEGATIVE (NEGATIVE); Ketones Urine NEGATIVE (NEGATIVE); Leukocyte Esterase Urine NEGATIVE (NEGATIVE); Nitrite Urine NEGATIVE (NEGATIVE); Protein Urine NEGATIVE (NEG/TRACE); Specific Gravity Urine >=1.030 (1.005-1.025); Urobilinogen Urine 0.2 EU/dL (0.2-1.0)
[2024-05-19 07:37] LABS: Urine Microscopic Indicated NO
[2024-05-19] MEDS: ACETAMINOPHEN 325 MG TABLET 650 MG PO (07:59)
[2024-05-19] MEDS: CEFAZOLIN SODIUM/DEXTROSE,ISO 2 GM/50 ML PIGGYBACK IV (07:59)
[2024-05-19] MEDS: SENNOSIDES 8.6 MG TABLET PO (07:59)
[2024-05-19 08:00] VITALS: BP 92/66; PULSE 86; TEMP 36.7; O2SAT 96
--- NOTE | 2024-05-19 08:36 | CM.NOTE ---
Rounds made with Dr. Zamora, patient will discharge to home today and f/u with PCP and Dr. Mendez.
[2024-05-19 09:13] LABS: Basophils Percent Auto 0.4 % (0.2-2.0); Eosinophils Percent Auto 0.4 % (0.9-7.0); Hematocrit 39.3 % (42.0-54.0); Hemoglobin 13.1 g/dL (14.0-18.0); Immature Granulocytes Abs Auto 0.01 10^3/uL (0.00-0.03); Immature Granulocytes Pct Auto 0.1 % (0.0-0.5); Lymphocytes Absolute Auto 1.1 10^3/uL (1.2-3.8); Lymphocytes Percent Auto 13.4 % (20.5-60.0); Mean Corpuscular HGB Conc 33.3 g/dL (29.9-35.2); Mean Corpuscular Hemoglobin 31.6 pg (25.9-34.0); Mean Corpuscular Volume 94.7 fL (80.0-94.0); Mean Platelet Volume 9.4 fL (9.5-13.5); Monocytes Absolute Auto 0.7 10^3/uL (0.3-0.8); Monocytes Percent Auto 9.3 % (1.7-12.0); Neutrophils Absolute Auto 6.1 10^3/uL (1.4-6.5); Neutrophils Percent Auto 76.4 % (43.0-75.0); Platelet Count 176 10^3/uL (150-450); Red Blood Count 4.15 10^6/uL (4.70-6.10); Red Cell Distribution Width 12.9 % (11.0-15.0); White Blood Count 7.9 10^3/uL (4.0-11.0)
== END 2024-05-19 11:25 | disposition home or self-care (01) ==
LOC: SURGOUT 06:58 → ICU 13:38
PROVIDERS: Anesthesiology; Admitting Provider Family Medicine; PCP Family Medicine; Visit Provider Student in an Organized Health Care Education/Training Program
PROC: (CPT 27447; principal; 2024-05-18 08:20)
DX: M17.12 Unilateral primary osteoarthritis, left knee (principal); R30.0 Dysuria; J44.9 Chronic obstructive pulmonary disease, unspecified; R00.0 Tachycardia, unspecified; D62 Acute posthemorrhagic anemia; I25.10 Atherosclerotic heart disease of native coronary artery without angina pectoris; I10 Essential (primary) hypertension; Z90.49 Acquired absence of other specified parts of digestive tract; Z87.891 Personal history of nicotine dependence; Z87.442 Personal history of urinary calculi; Z85.840 Personal history of malignant neoplasm of eye
CPT/HCPCS: 27447; 36415; 64450; 73564; 76942; 81003; 85025; 96365; 96366; 96375; 97110; 97116; 97161; 97165; C1713; C1776; J0665; J0690; J1100; J1171; J2270; J2371; J2405; J2704; J3010; J3370

== ENCOUNTER 2024-06-01 13:54 | Outpatient (OUT) | payer MEDICARE, SELFPAY ==
--- NOTE | 2024-06-01 | XR_ITS ---
The [address] [address] Patient Name: MONA SONI MRN: [id number] date: 1945 Sex: M Assigned Patient Location: Current Patient Location: Accession/Order Number: [id number] Exam Date: 06/01/2024 13:55 Report Date: 06/04/2024 06:26 At the request of: SHERIE LANG Procedure: XR knee LT 2V PROCEDURE: XR knee LT 2V HISTORY: LEFT KNEE PAIN COMPARISON: None. FINDINGS: BONES:Total knee replacement and resurfacing of the patella. No hardware fracture loosening. No bone fracture dislocation. SOFT TISSUES:No visible soft tissue swelling. EFFUSION:Increased density cephalad to the patella is suggestive of a joint effusion. OTHER: Negative. XR/XR knee LT 2V IMPRESSION: 1. Total knee replacement without evidence of hardware failure or acute bone abnormality. 2. Joint effusion versus suprapatellar soft tissue edema. Electronically authenticated by: HELENA FITZPATRICK Date: 06/04/2024 06:26
--- OUTSIDE RECORDS SUMMARY | 2024-06-01 14:06 | XMS_ITS | CCD ---
Author Organization [facility] Care Team Providers Care Zipper Measurer Name Role Phone Dalton Romo Admitting Unavailable [...] Attending Unavailable Elvia Okeefe Primary Care Provider [phone] Dev Barber Primary Care Provider Dev Barber Primary Care Provider DEV BARBER Primary Care Unavailable TERE BLOUNT Attending Unavailable ELVIA OKEEFE Primary Care UnavailTERE Lopez Attending Unavailable DEV BARBER Primary Care Unavailable TERE BLOUNT Attending Unavailable TERE BLOUNT Attending Unavailable DEV BARBER Primary Care Unavailable TERE BLOUNT Referring Unavailable DEV BARBER Primary Care Unavailable TERE BLOUNT Attending Unavailable NANI FAIRBANKS Attending Unavailable DEV BARBER Attending Unavailable DEV BARBER Attending Unavailable ANNI FAIRBANKS Attending Unavailable DEV BARBER Attending Unavailable Lefty BRYANT, Boone Zendejas Attending Unavailable Casey Iniguez DPM Attending Gonzales Barber MD, Dev Young Primary Care Unavail able Lefty BRYANT, Boone Zendejas Attending Unavailable Lefty BRYANT, Boone Zendejas Attending Unavailable Lefty BRYANT, Boone Zendejas Attending Unavailable Dev Barber MD Primary Care Provider DEV BARBER Referring Unavailable DEV BARBER Primary Care Unavailable DEV BARBER Primary Care Unavailable SHERIE LANG Referring Unavailable Medications Current Medications Medication Drug Class(es) Dates Sig (Normalized) Sig (Original) [id number] 200 actuat albuterol 0.09 mg/actuat metered dose inhaler (3 sources) beta2-Adrenergic Agonist Start: 11-05-2023 take 2 puff(s) by inhalation every four hours for wheezing albuterol HFA 90 mcg/act inhaler Indications: Shortness of breath Inhale 2 puffs every 4 (four) hours if needed for shortness of breath or wheezing 9 g 11/05/2023 Active ascorbic acid 60 mg / beta carotene 5000 unt / copper sulfate 40 mg / dl-alpha tocopheryl acetate 30 unt / sodium selenite 0.04 mg / zinc oxide 40 mg oral tablet (3 sources) Vitamin C Multiple Vitamin (Multivitamin Adult) tablet Take by mouth Active dexamethasone 1 mg/ml / neomycin 3.5 mg/ml / polymyxin b 32773 unt/ml ophthalmic suspension (9 sources) Aminoglycoside Antibacterial, Polymyxin-class Antibacterial, Corticosteroid Start: 09-19-2023 End: 05-08-2024 take 1 drop(s) into the eye(s) four times daily [id number] EXAMETH 3.5 MG/ML-10,000 UNIT/ML-0.1% EYE DROPS Indications: [...] 7 days. tiotropium 0.018 mg inhalation powder (5 sources) Anticholinergic Start: take 1 puff(s) by mouth once daily Spiriva HandiHaler 18 MCG inhalation capsule Indications: Chronic bronchitis, unspecified chronic bronchitis type (CMS/HCC) Inhale 1 puff by mouth once daily 30 capsule 04/22/2024 Active SPIRIVA WITH DIA DIHALER 18 mcg inhalation capsule Inhale as instructed once daily. Active Problems Active Problems Problem Classification Problem Date Documented Date Episodic/Chronic Chronic obstructive pulmonary disease and bronchiectasis (3 sources) Chronic obstructive lung disease; Translations: [Chronic obstructive pulmonary disease, unspecified] Onset: 11-25-2023 11-25-2023 Chronic Neoplasms of unspecified nature or uncertain behavior (7 sources) Conjunctival intraepithelial neoplasia; Translations: [Neoplasm of unspecified behavior of other specified sites] 09-17-2023 Episodic Osteoarthritis (3 sources) Osteoarthritis of left knee joint; Translations: [Unilateral primary osteoarthritis, left knee] Onset: 11-25-2023 11-25-2023 Chronic Other lower respiratory disease (4 sources) Shortness [...] Translations: [DYSURIA] Onset: 01-03-2022 Episodic Other aftercare (5 sources) Other long term acute care registered nurse (current) drug therapy; Translations: [OTH CORRECTION CURRENT DRUG THERAPY] Onset: 08-24-2021 Episodic Other aftercare (3 sources) Long-term current use of drug therapy; Translations: [Other long term acute care registered nurse (current) drug therapy] Onset: 11-25-2023 11-25-2023 Episodic Other non-epithelial cancer of skin (3 sources) History of malignant basal cell neoplasm of skin; Translations: [Personal history of other malignant neoplasm of skin] Onset: 11-25-2023 11-25-2023 Episodic Other screening for suspected conditions (not mental disorders or infectious disease) (10 sources) Encounter for screening for malignant neoplasm of prostate; Translations: [Encounter for screening for lipoid disorders] Onset: 08-26-2021 11-25-2023 Episodic Results Test Name Value Interpretation Reference Range Facility [facility] UA (CLEAN/CATCH) MICROSC OPIC IF INDICATEon 05-19-2024 BILIRUBIN URINE Negative NEGATIVE [facility] BLOOD URINE Negative NEGATIVE [facility] Clarity (U) CLEAR CLEAR [facility] Color (U) YELLOW YELLOW [facility] GLUCOSE URINE UA Negative NEGATIVE mg/dL [facility] Interpretation and review of laboratory results [facility] Ketones Ql (U) Negative NEGATIVE mg/dL [facility] Leukocyte esterase Test strip Ql (U) Negative NEGATIVE [facility] NITRITE URINE Negative NEGATIVE [facility] care pH (U) 6.0 [pH] 5.0 - 9.0 [facility] PROTEIN URINE Negative NEG/TRACE mg/dL [facility] SPECIFIC GRAVITY URINE >=1.030 Abnormal 1.005 - 1.025 [facility] URINE MICROSCOPIC INDICATED NO [facility] UROBILINOGEN URINE 0.2 EU/dL 0.2 - 1.0 EU/dL [facility] ALL CBC WITH AUTO DIFFon BASOPHILS ABSOLUTE AUTO 0.1 [facility] Basophils/100 WBC (Bld) 1.5 % 0.2 - 2.0 % [facility] Eosinophils/100 WBC (Bld) 2.2 % 0.9 - 7.0 % [facility] Erythrocyte distribution width (RBC) [Ratio] 12.8 % 11.0 - 15.0 % [facility] Hematocrit (Bld) [Volume fraction] 43.5 % 42.0 - 54.0 % [facility] e Hemoglobin (Bld) [Mass/Vol] 14.3 g/dL 14.0 - 18.0 g/dL [facility] IMMATURE GRANULOCYTES ABS AUTO 0 [facility] Immature granulocytes/100 WBC (Bld) 0 % 0.0 - 0.5 % [facility] Interpretation and review of laboratory results Abnormal [facility] LYMPHOCYTES ABSOLUTE AUTO 1.6 [facility] Lymphocytes/100 WBC (Bld) 34 % 20.5 - 60.0 % [facility] MCH (RBC) [Entitic mass] 31.2 pg 25.9 - 34.[address] [facility] MCHC (RBC) [Mass/Vol] 32.9 g/dL 29.9 - 35.2 g/dL [facility] MCV (RBC) [Entitic vol] 95 fL High 80.0 - 94.[address] [facility] MONOCYTES ABSOLUTE AUTO 0.4 [facility] Monocytes/100 WBC (Bld) 7.6 % 1.7 - 12.0 % [facility] NEUTROPHILS ABSOLUTE AUTO 2.5 [facility] Neutrophils/100 WBC (Bld) 54.7 % 43.0 - 75.0 % [facility] Platelet mean volume (Bld) [Entitic vol] 8.9 fL Low 9.5 - 13.5 fL [facility] EO # 0.1 [facility] PLT 191 [facility] RBC 4.58 Low [facility] WBC 4.6 [facility] ALL TYPE AND SCREENon 2023 ABO and Rh group Nom (Bld) Blood group A Rh(D) positive [facility] , [facility] XR Chest 2 Viewson XR Chest 2 Views EXAM: XR CHEST 2 VIEWS HISTORY: Unilateral primary osteoarthritis, left knee COMPARISON: [...] Electronically Signed in Other Vendor System) Normal [facility] OCT ANTERIOR SEGMENT SPECIAL ORDERon 04-16-2024 [facility] Radiology Study observation (narrative) [facility] SLIT LAMP PHOTOS OS (LEFT EY E)on 04-16-2024 [facility] Radiology Study observation (narrative) [facility] OCT ANTERIOR SEGMENT SPECIAL ORDERon 01-16-2024 [facility] Radiology Study observation (narrative) [facility] SLIT LAMP PHOTOS OS (LEFT EY E)on 01-16-2024 [facility] Radiology Study observation (narrative) [facility] BASIC METABOLIC PANLon 11-24 Anion gap [Moles/Vol] 7 mmol/L Normal 5-15 [facility] Comment on above: Performed By: #### 2 4331-1, BMP, LIVR, CBCA, 2857-1 #### [facility] ([id number]) [address], [address] [place] [address] Calcium [Mass/Vol] 9.4 mg/dL Normal 8.5-10.5 [facility] Comment on above: Performed By: #### 2 4331-1, BMP, LIVR, CBCA, 2857-1 #### [facility] ([id number]) [address], [address] [place] [address] Chloride [Moles/Vol] 105 mmol/L Normal 98-[address] [facility] Comment on above: Performed By: #### 2 4331-1, BMP, LIVR, CBCA, 2857-1 #### [facility] ([id number]) [address], [address] [place] [address] CO2 [Moles/Vol] 29 mmol/L Normal 22-[address] [facility] Comment on above: Performed By: #### 2 4331-1, BMP, LIVR, CBCA, 2857-1 #### [facility] ([id number]) [address], [address] [place] [address] Creatinine [Mass/Vol] 0.83 mg/dL Normal 0.60-1.[address] [facility] Comment on above: Result Comment: METH OD TRACEABLE TO IDMS STANDARD Performed By: #### 2 4331-1, BMP, LIVR, CBCA, 2857-1 #### [facility] ([id number]) [address], [address] [place] [address] GFR/1.73 sq M.predicted among non-blacks MDRD (S/P/Bld) [Vol rate/Area] 90 mL/min/{1.73_m2} Normal >[address] [facility] Comment on above: Result Comment: Reported eGFR is based on the CKD-EPI 2020 equation that does not use a race coefficient. Performed By: #### 2 4331-1, BMP, LIVR, CBCA, 2857-1 #### [facility] ([id number]) [address], [address] [place] [address] Glucose [Mass/Vol] 99 mg/dL Normal 65-99 [facility] Comment on above: Performed By: #### 2 4331-1, BMP, LIVR, CBCA, 2857-1 #### [facility] ([id number]) [address], [address] [place] [address] Potassium [Moles/Vol] 4.2 mmol/L Normal 3.5-5.[address] [facility] Comment on above: Performed By: #### 2 4331-1, BMP, LIVR, CBCA, 2857-1 #### [facility] ([id number]) [address], [address] [place] [address] Sodium [Moles/Vol] 141 mmol/L Normal 134-146 [facility] Comment on above: Performed By: #### 2 4331-1, BMP, LIVR, CBCA, 2857-1 #### [facility] ([id number]) [address], [address] [place] [address] Urea nitrogen [Mass/Vol] 20 mg/dL Normal 5-[address] [facility] Comment on above: Performed By: #### 2 4331-1, BMP, LIVR, CBCA, 2857-1 #### [facility] ([id number]) [address], [address] [place] [address] CBC AND AUTO DIFFon 11-25-19 24 ABSOLUTE BASOPHIL 0.1 X10E9/L Normal 0.0-0.2 [facility] Comment on above: Performed By: #### 2 4331-1, BMP, LIVR, CBCA, 2857-1 #### [facility] ([id number]) [address], [address] [place] [address] ABSOLUTE NEUTROPHIL 2.2 X10E9/L Normal 1.5-6.6 [facility] Comment on above: Performed By: #### 2 4331-1, BMP, LIVR, CBCA, 2856- #### [facility] ([id number]) [address] [address] [place] [address] Basophils/100 WBC (Bld) 1.7 % Normal [facility] Comment on above: Performed By: #### 2 4331-1, BMP, LIVR, CBCA, 2856- #### [facility] ([id number]) [address] [address] [place] [address] Eosinophils (Bld) [#/Vol] 0.1 10*3/uL Normal 0.0-0.[address] [facility] Comment on above: Performed By: #### 2 4331-1, BMP, LIVR, CBCA, 2856- #### [facility] ([id number]) [address] [address] Eosinophils/100 WBC (Bld) 1.5 % Normal [facility] Comment on above: Performed By: #### 2 4331-1, BMP, LIVR, CBCA, 2856- #### [facility] ([id number]) [address] [address] [place] [address] Erythrocyte distribution width (RBC) [Ratio] 13.6 % Normal 11.5-15.[address] [facility] Comment on above: Performed By: #### 2 4331-1, BMP, LIVR, CBCA, 2856- #### [facility] ([id number]) [address] [address] [place] [address] Hematocrit (Bld) [Volume fraction] 42.9 % Normal 39-[address] [facility] Comment on above: Performed By: #### 2 4331-1, BMP, LIVR, CBCA, 285- #### [facility] ([id number]) [address] [address] [place] [address] Hemoglobin (Bld) [Mass/Vol] 14.4 g/dL Normal 13.0-17.[address] [facility] Comment on above: Performed By: #### 2 4331-1, BMP, LIVR, CBCA, 285- #### [facility] ([id number]) [address] [address] [place] [address] Lymphocytes (Bld) [#/Vol] 1.0 10*3/uL Normal 1.0-3.[address] [facility] Comment on above: Performed By: #### 2 4331-1, BMP, LIVR, CBCA, 285- #### [facility] ([id number]) [address], [facility] [address] [place] [address] Lymphocytes/100 WBC (Bld) 26.9 % Normal [facility] Comment on above: Performed By: #### 2 4331-1, BMP, LIVR, CBCA, 2856- #### [facility] ([id number]) [address] [address] [place] [address] MCH (RBC) [Entitic mass] 31.5 pg Normal 27-[address] [facility] Comment on above: Performed By: #### 2 4331-1, BMP, LIVR, CBCA, 285- #### [facility] ([id number]) [address] [address] [place] [address] MCHC (RBC) [Mass/Vol] 33.7 g/dL Normal 32-[address] [facility] Comment on above: Performed By: #### 2 4331-1, BMP, LIVR, CBCA, 285- #### [facility] ([id number]) [address] [address] [place] [address] MCV (RBC) [Entitic vol] 94 fL Normal 80-[address] [facility] Comment on above: Performed By: #### 2 4331-1, BMP, LIVR, CBCA, 285- #### [facility] ([id number]) [address], [address] [place] [address] Monocytes (Bld) [#/Vol] 0.3 10*3/uL Normal 0-0.[address] [facility] Comment on above: Performed By: #### 2 4331-1, BMP, LIVR, CBCA, 285-1 #### [facility] ([id number]) [address], [facility] [address] [place] [address] Monocytes/100 WBC (Bld) 7.8 % Normal [facility] Comment on above: Performed By: #### 2 4331-1, BMP, LIVR, CBCA, 2856-1 #### [facility] ([id number]) [address] [address] [place] [address] Neutrophils/100 WBC (Bld) 62.1 % Normal [facility] Comment on above: Performed By: #### 2 4331-1, BMP, LIVR, CBCA, 2856- #### [facility] ([id number]) [address], [facility] [address] [place] [address] Platelet mean volume (Bld) [Entitic vol] 8.1 fL Normal 7-[address] [facility] Comment on above: Performed By: #### 2 4331-1, BMP, LIVR, CBCA, 2856-1 #### [facility] ([id number]) [address], [facility] [address] [place] [address] Platelets (Bld) [#/Vol] 179 10*3/uL Normal 150-[address] [facility] Comment on above: Performed By: #### 2 4331-1, BMP, LIVR, CBCA, 2856-1 #### [facility] ([id number]) [address] [address] [place] [address] RBC COUNT 4.58 X10E12/L Normal 4.10-5.[address] [facility] Comment on above: Performed By: #### 2 4331-1, BMP, LIVR, CBCA, 2857-1 #### [facility] ([id number]) [address], [address] [place] [address] WBC (Bld) [#/Vol] 3.6 10*3/uL Low 4.0-11.0 [facility] Comment on above: Performed By: #### 2 4331-1, BMP, LIVR, CBCA, 2857-1 #### [facility] ([id number]) [address], [address] [place] [address] LIVER PANELon 11-25-2023 Albumin [Mass/Vol] 4.1 g/dL Normal 3.2-5.3 [facility] Comment on above: Performed By: #### 2 4331-1, BMP, LIVR, CBCA, 2857-1 #### [facility] ([id number]) [address], [address] [place] [address] ALP [Catalytic activity/Vol] 74 U/L Normal 39-[address] [facility] Comment on above: Performed By: #### 2 4331-1, BMP, LIVR, CBCA, 2857-1 #### [facility] ([id number]) [address] [address] [place] [address] ALT [Catalytic activity/Vol] 14 U/L Normal 0-[address] [facility] Comment on above: Performed By: #### 2 4331-1, BMP, LIVR, CBCA, 2857-1 #### [facility] ([id number]) [address], [address] [place] [address] AST [Catalytic activity/Vol] 17 U/L Normal 0-[address] [facility] Comment on above: Performed By: #### 2 4331-1, BMP, LIVR, CBCA, 2857-1 #### [facility] ([id number]) [address] [address] [place] [address] Bilirubin [Mass/Vol] 0.7 mg/dL Normal 0.3-1.[address] [facility] Comment on above: Performed By: #### 2 4331-1, BMP, LIVR, CBCA, 2857-1 #### [facility] ([id number]) [address], [facility] [address] [place] [address] Bilirubin.direct [Mass/Vol] 0.1 mg/dL Normal 0.0-0.[address] [facility] Comment on above: Performed By: #### 2 4331-1, BMP, LIVR, CBCA, 2857-1 #### [facility] ([id number]) [address], [address] [address] Protein [Mass/Vol] 6.7 g/dL Normal 6.0-8.0 [facility] Comment on above: Performed By: #### 2 4331-1, BMP, LIVR, CBCA, 2857-1 #### [facility] ([id number]) [address], [address] [address] Lipid 1996 panelon 4 Cholesterol [Mass/Vol] 160 mg/dL Normal 150-[address] [facility] Comment on above: Performed By: #### 2 4331-1, BMP, LIVR, CBCA, 2857-1 #### [facility] ([id number]) [address], [address] [address] Cholesterol in HDL [Mass/Vol] 65 mg/dL Normal >[address] [facility] Comment on above: Result Comment: HDL <40 mg/dL - High Risk HDL > or = 40mg/dL- Desirable HDL >60 mg/dL - Negative Risk Performed By: #### 2 4331-1, BMP, LIVR, CBCA, 2857-1 #### [facility] ([id number]) [address], [address] [place] [address] Cholesterol in LDL [Mass/Vol] 82 mg/dL Normal <[address] [facility] Comment on above: Result Comment: LDL <100 mg/dL - Desirable LDL >160 mg/dL - High Risk Performed By: #### 2 4331-1, BMP, LIVR, CBCA, 2857-1 #### [facility] ([id number]) [address], [address] [place] [address] Cholesterol in VLDL [Mass/Vol] 13 mg/dL Normal 0-[address] [facility] Comment on above: Performed By: #### 2 4331-1, BMP, LIVR, CBCA, 2857-1 #### [facility] ([id number]) [address], [address] [place] [address] CHOLESTEROL:HDL 2.5 Normal 1.0-5.[address] [facility] Comment on above: Performed By: #### 2 4331-1, BMP, LIVR, CBCA, 2857-1 #### [facility] ([id number]) [address], [address] [place] [address] Triglyceride [Mass/Vol] 63 mg/dL Normal 27-[address] [facility] Comment on above: Performed By: #### 2 4331-1, BMP, LIVR, CBCA, 2857-1 #### [facility] ([id number]) [address], [address] [place] [address] Prostate specific Ag [Mass/V ol]on 11-25-2023 PSA SCREEN 1.21 ng/mL Normal 0.00-4.[address] [facility] Comment on above: Result Comment: The method used for this test is Christine Lon DXI chemiluminescent immunoassay. Values obtained by different assay methods cannot be used interchangeably. Performed By: #### 2 4331-1, BMP, LIVR, CBCA, 2857-1 #### [facility] ([id number]) [address], [address] [place] [address] CNPNon 07-23-2023 CNPN Telephone (OPHTMN) NEVA CONKLIN ([id number]) 1945 M Date Time Provider Department 07/23/23 TERE BLOUNT OPHTMN During your visit today, we recorded the following information about you: Allergies As of Date: 07/23/2023 (Not on File) Date Reviewed: Never Reviewed Reason for Visit: Received Outside Medical Records [[id number]] Cmt: Notes received from Dr Parra and sent to scanning Problem List As Of Date: 07/23/2023 (None) Encounter Status:Closed by MARIA E GREER on 07/23/23 Normal [facility] HEMOGLOBINon 07-19-2022 Hemoglobin (Bld) [Mass/Vol] 14.0 g/dL Normal 14.0-18.0 [facility] Comment on above: Performed By: #### H GB #### [facility] [address] [place] [address] Dr. Holden Monae CULTURE URINEon 01-03-2022 CULTURE URINE Culture Observations : No growth Normal [facility] Comment on above: Performed By: #### U RCX #### [facility] [address] [address] [address] Holden Monae UA RANDOM W/MICROSCOPICon BACTERIA NONE SEEN Normal NONE SEEN [facility] Comment on above: Performed By: #### U AMIC #### [facility] [address] [address] [address] Holden Monae Bilirubin Ql (U) Negative Normal NEGATIVE [facility] Comment on above: Performed By: #### U AMIC #### [facility] [address] [place] [address] Dr. Holden Monae CA OX CRYSTALS FEW Normal [facility] Comment on above: Performed By: #### U AMIC #### [facility] [address] [place] [address] Dr. Holden Monae CAST NONE SEEN Normal NONE SEEN [facility] Comment on above: Performed By: #### U AMIC #### [facility] [address] [address] [address] Holden Monae Clarity (U) CLEAR Normal CLEAR [facility] Comment on above: Performed By: #### U AMIC #### [facility] [address] [place] [address] Dr. Holden Monae Color (U) YELLOW Normal YELLOW [facility] Comment on above: Performed By: #### U AMIC #### [facility] [address] [place] [address] Dr. Holden Monae Crystals LM Nom (Urine sed) SEEN Abnormal NONE SEEN [facility] Comment on above: Performed By: #### U AMIC #### [facility] [address] [place] [address] Dr. Holden Monae Epithelial cells LM Ql (Urine sed) RARE Normal NONE SEEN /RARE [facility] Comment on above: Performed By: #### U AMIC #### [facility] [address] [address] [address] Holden Monae Glucose Ql (U) Negative Normal NEGATIVE [facility] Comment on above: Performed By: #### U AMIC #### [facility] [address] [place] [address] Dr. Holden Monae Hemoglobin Ql (U) Negative Normal NEGATIVE [facility] Comment on above: Performed By: #### U AMIC #### [facility] [address] [place] [address] Dr. Holden Monae Ketones Ql (U) Negative Normal NEGATIVE [facility] Comment on above: Performed By: #### U AMIC #### [facility] [address] [address] [address] Holden Monae LEUKOCYTES Negative Normal NEGATIVE [facility] Comment on above: Performed By: #### U AMIC #### [facility] [address] [address] [address] Holden Monae MUCOUS NONE SEEN Normal NONE SEEN [facility] Comment on above: Performed By: #### U AMIC #### [facility] [address] [address] [address] Holden Monae Nitrite Ql (U) Negative Normal NEGATIVE [facility] Comment on above: Performed By: #### U AMIC #### [facility] [address] [place] [address] Dr. Holden Monae pH (U) 6.0 [pH] Normal 5-9 [facility] Comment on above: Performed By: #### U AMIC #### [facility] [address] [place] [address] Dr. Holden Monae RBC NONE SEEN Abnormal 0-2 [facility] Comment on above: Performed By: #### U AMIC #### [facility] [address] [place] [address] Dr. Holden Monae SPEC GRAVITY 1.020 Normal 1.005-<=1.025 [facility] Comment on above: Performed By: #### U AMIC #### [facility] [address] [place] [address] Dr. Holden Monae UA PROTEIN Negative Normal NEGATIVE/ TRACE [facility] Comment on above: Performed By: #### U AMIC #### [facility] [address] [place] [address] Dr. Holden Monae Urobilinogen Qn (U) 0.2 {Any'U}/dL Normal 0.2 - 1. 0 [facility] Comment on above: Performed By: #### U AMIC #### [facility] [address] [place] [address] Dr. Holden Monae WBC 2-5 Abnormal NONE SEEN [facility] Comment on above: Performed By: #### U AMIC #### [facility] [address] [address] [address] Holden Monae CBC AUTO DIFFon 08-24-2021 BASO # 0.1 103/ul Normal 0.0-0.1 [facility] Comment on above: Performed By: #### C BC #### [facility] [address] [address] [address] Holden Monae Basophils/100 WBC (Bld) 1.5 % Normal 0.2-2.0 [facility] Comment on above: Performed By: #### C BC #### [facility] [address] [place] [address] Dr. Holden Monae EO # 0.1 103/ul Normal 0.0-0.7 [facility] Comment on above: Performed By: #### C BC #### [facility] [address] [place] [address] Dr. Holden Monae Eosinophils/100 WBC (Bld) 2.1 % Normal 0.9-7.0 [facility] Comment on above: Performed By: #### C BC #### [facility] [address] [place] [address] Dr. Holden Monae Erythrocyte distribution width (RBC) [Ratio] 12.7 % Normal 11.0-15.0 [facility] Comment on above: Performed By: #### C BC #### [facility] [address] [place] [address] Dr. Holden Monae Hematocrit (Bld) [Volume fraction] 45.2 % Normal 42.0-54.0 [facility] Comment on above: Performed By: #### C BC #### [facility] [address] [address] [address] Holden Monae Hemoglobin (Bld) [Mass/Vol] 14.8 g/dL Normal 14.0-18.0 [facility] Comment on above: Performed By: #### C BC #### [facility] [address] [place] [address] Dr. Holden Monae IG # 0.01 10e3/ul Normal 0.00-0.03 [facility] Comment on above: Performed By: #### C BC #### [facility] [address] [place] [address] Dr. Holden Monae IG % 0.3 % Normal 0.0-0.5 [facility] Comment on above: Performed By: #### C BC #### [facility] [address] [place] [address] Dr. Holden Monae LYMPH # 1.2 103/ul Normal 1.2-3.8 [facility] Comment on above: Performed By: #### C BC #### [facility] [address] [place] [address] Dr. Holden Monae Lymphocytes/100 WBC (Bld) 35.2 % Normal 20.5-60.0 [facility] Comment on above: Performed By: #### C BC #### [facility] [address] [place] [address] Dr. Holden Monae MANUAL DIFF REQ NO Normal [facility] Comment on above: Performed By: #### C BC #### [facility] [address] [place] [address] Dr. Holden Monae MCH (RBC) [Entitic mass] 30.9 pg Normal 25.9-34.0 [facility] Comment on above: Performed By: #### C BC #### [facility] [address] [place] [address] Dr. Holden Monae MCHC (RBC) [Mass/Vol] 32.7 g/dL Normal 29.9-35.2 [facility] Comment on above: Performed By: #### C BC #### [facility] [address] [place] [address] Dr. Holden Monae MCV (RBC) [Entitic vol] 94.4 fL Critically high 80.0-94.0 [facility] Comment on above: Performed By: #### C BC #### [facility] [address] [place] [address] Dr. Holden Monae MONO # 0.3 103/ul Normal 0.3-0.8 [facility] Comment on above: Performed By: #### C BC #### [facility] [address] [address] [address] Holden Monae Monocytes/100 WBC (Bld) 7.6 % Normal 1.7-12.0 [facility] Comment on above: Performed By: #### C BC #### [facility] [address] [address] [address] Holden Monae NEUT # 1.8 103/ul Normal 1.4-6.5 [facility] Comment on above: Performed By: #### C BC #### [facility] [address] [address] [address] Holden Monae Neutrophils/100 WBC (Bld) 53.3 % Normal 43.0-75.0 [facility] Comment on above: Performed By: #### C BC #### [facility] [address] [place] [address] Dr. Holden Monae Platelet mean volume (Bld) [Entitic vol] 9.5 fL Normal 9.5-13.5 [facility] Comment on above: Performed By: #### C BC #### [facility] [address] [place] [address] Dr. Holden Monae PLT 168 103/ul Normal 150-450 [facility] Comment on above: Performed By: #### C BC #### [facility] [address] [place] [address] Dr. Holden Monae RBC 4.79 106/ul Normal 4.70-6.10 [facility] Comment on above: Performed By: #### C BC #### [facility] [address] [place] [address] Dr. Holden Monae WBC 3.4 103/ul Critically low 4.0-11.0 [facility] Comment on above: Performed By: #### C BC #### [facility] [address] [place] [address] Dr. Holden Monae LIPID PROFILEon 08-24-2021 CHOL-HDL RATIO NORM SEE BELOW Normal [facility] Comment on above: Result Comment: 3.3 - 4.4 LOW RISK 4.4 - 7.1 AVERAGE RISK 7.1 - 11.0 MODERATE RISK >11.0 HIGH RISK Performed By: #### L IPID, BMP, LIVER #### [facility] [address] [address] [address] Holden Monae Cholesterol [Mass/Vol] 176 mg/dL Normal <=200 [facility] Comment on above: Performed By: #### L IPID, BMP, LIVER #### [facility] [address] [address] [address] Holden Monae Cholesterol in HDL [Mass/Vol] 81 mg/dL Normal [facility] Comment on above: Performed By: #### L IPID, BMP, LIVER #### [facility] [address] [address] [address] Holden Monae Cholesterol in LDL [Mass/Vol] 84.6 mg/dL Normal [facility] Comment on above: Performed By: #### L IPID, BMP, LIVER #### [facility] [address] [address] [address] Holden Monae Cholesterol.total/C holesterol in HDL [Mass ratio] 2.2 {ratio} Normal [facility] Comment on above: Performed By: #### L IPID, BMP, LIVER #### [facility] [address] [address] [address] Holden Monae HDL NORMAL > or = 60 mg/dl - LO W CARDIOVASCULAR RISK <40 mg/dl - HIGH CARDIOVASCULAR RISK Normal [facility] Comment on above: Performed By: #### L IPID, BMP, LIVER #### [facility] [address] [address] [address] Holden Monae LDL CALC NORMAL SEE BELOW Normal [facility] Comment on above: Result Comment: <100 mg/dl OPTIMAL 100 - 129 mg/dl NEAR OR ABOVE OPTIMAL 130 - 159 mg/dl BORDERLINE HIGH 160 - 189 mg/dl HIGH >190 mg/dl VERY HIGH Performed By: #### L IPID, BMP, LIVER #### [facility] [address] [address] [address] Holden Monae Triglyceride [Mass/Vol] 52 mg/dL Normal <=150 [facility] Comment on above: Performed By: #### L IPID, BMP, LIVER #### [facility] [address] [address] [address] Holden Monae VLDL CALC 10.4 mg/dL Normal [facility] Comment on above: Performed By: #### L IPID, BMP, LIVER #### [facility] [address] [address] [address] Holden Monae LIVER PROFILEon 08-24-2021 Albumin [Mass/Vol] 3.9 g/dL Normal 3.5-5.0 [facility] Comment on above: Performed By: #### L IPID, BMP, LIVER #### [facility] [address] [address] [address] Holden Monae Albumin/Globulin [Mass ratio] 1.3 {ratio} Normal [facility] Comment on above: Performed By: #### L IPID, BMP, LIVER #### [facility] [address] [address] [address] Holden Monae ALP [Catalytic activity/Vol] 83 U/L Normal 38-126 [facility] Comment on above: Performed By: #### L IPID, BMP, LIVER #### [facility] [address] [address] [address] Holden Monae ALT [Catalytic activity/Vol] 21 U/L Normal 21-72 [facility] Comment on above: Performed By: #### L IPID, BMP, LIVER #### [facility] [address] [address] [address] Holden Monae AST [Catalytic activity/Vol] 17 U/L Normal 17-59 [facility] Comment on above: Performed By: #### L IPID, BMP, LIVER #### [facility] [address] [address] [address] Holden Monae BILI, CONJUGATED 0.2 mg/dL Normal 0.0-0.3 [facility] Comment on above: Performed By: #### L IPID, BMP, LIVER #### [facility] [address] [address] [address] Holden Monae Bilirubin [Mass/Vol] 0.9 mg/dL Normal 0.2-1.3 [facility] Comment on above: Performed By: #### L IPID, BMP, LIVER #### [facility] [address] [place] [address] Dr. Holden Monae Globulin (S) [Mass/Vol] 3.1 g/dL Normal [facility] Comment on above: Performed By: #### L IPID, BMP, LIVER #### [facility] [address] [place] [address] Dr. Holden Monae Protein [Mass/Vol] 7.0 g/dL Normal 6.1-8.2 [facility] Comment on above: Performed By: #### L IPID, BMP, LIVER #### [facility] [address] [place] [address] Dr. Holden Monae PROF CHEM 8 (BAS METB)on Anion gap [Moles/Vol] 13.2 mmol/L Normal [facility] Comment on above: Performed By: #### L IPID, BMP, LIVER #### [facility] [address] [place] [address] Dr. Holden Monae Calcium [Mass/Vol] 9.4 mg/dL Normal 8.4-10.2 [facility] Comment on above: Performed By: #### L IPID, BMP, LIVER #### [facility] [address] [place] [address] Dr. Holden Monae Chloride [Moles/Vol] 104 mmol/L Normal 98-107 [facility] Comment on above: Performed By: #### L IPID, BMP, LIVER #### [facility] [address] [place] [address] Dr. Holden Monae CO2 [Moles/Vol] 28.8 mmol/L Normal 22.0-30.[address] [facility] Comment on above: Performed By: #### L IPID, BMP, LIVER #### [facility] [address] [place] [address] Dr. Holden Monae Creatinine [Mass/Vol] 0.81 mg/dL Normal 0.66-1.25 [facility] Comment on above: Performed By: #### L IPID, BMP, LIVER #### [facility] [address] [address] [address] Holden Monae EGFR-AF BENINESE >60 Normal >=60 [facility] Comment on above: Performed By: #### L IPID, BMP, LIVER #### [facility] [address] [address] [address] Holden Monae EGFR-NON AF BENINESE >60 Normal >=60 [facility] Comment on above: Performed By: #### L IPID, BMP, LIVER #### [facility] [address] [address] [address] Holden Monae Glucose [Mass/Vol] 92 mg/dL Normal 74-106 [facility] Comment on above: Performed By: #### L IPID, BMP, LIVER #### [facility] [address] [address] [address] Holden Monae Potassium [Moles/Vol] 4.0 mmol/L Normal 3.4-5.0 [facility] Comment on above: Performed By: #### L IPID, BMP, LIVER #### [facility] [address] [place] [address] Dr. Holden Monae Sodium [Moles/Vol] 142 mmol/L Normal 137-145 [facility] Comment on above: Performed By: #### L IPID, BMP, LIVER #### [facility] [address] [address] [address] Holden Monae Urea nitrogen [Mass/Vol] 11.0 mg/dL Normal 9.0-20.0 [facility] Comment on above: Performed By: #### L IPID, BMP, LIVER #### [facility] [address] [address] [address] Holden Monae Urea nitrogen/Creatinine [Mass ratio] 13.6 mg/mg Normal [facility] Comment on above: Performed By: #### L IPID, BMP, LIVER #### [facility] [address] [place] [address] Dr. Holden Monae Superficial Wound Cultureon 10-27-2018 Superficial Wound Culture INFECTION FOLLOWING A PROCEDURE; No Growth 2 Days PERFORMED BY: [facility] [address] [place] [address] PATHOLOGIST REAL ESTATE MANAGER SEAN HUMPHREY M.D. [facility] Comment on above: Performed By: #### C USUP #### [facility] [address] [place] [address] [place] Encounters Encounter Date Encounter Type Care Provider Facility Start: 05-20-2024 ambulatory DEV BARBER [facility] Start: 05-19-2024 End: 05-19-2024 Clinisync Result Encounter Generic External Data Provider [facility] External Department Unsolicited Start: 05-19-2024 End: 05-19-2024 Clinisync Result Encounter Generic External Data Provider [facility] External Department Unsolicited Start: 05-18-2024 End: 05-18-2024 Clinisync Result Encounter Generic External Data Provider [facility] External Department Unsolicited Start: 05-18-2024 End: 05-18-2024 Clinisync Result Encounter Generic External Data Provider [facility] External Department Unsolicited Start: 05-14-2024 End: 05-14-2024 Clinisync Result Encounter Generic External Data Provider [facility] External Department Unsolicited Start: 05-14-2024 End: 05-14-2024 Clinisync Result Encounter Generic External Data Provider [facility] External Department Unsolicited Start: 05-08-2024 End: 05-08-2024 Refill Shayy Sonal CHINO Work Phone: Ophthalmology Comment on above: Refill Request Start: 04-25-2024 End: 04-25-2024 ambulatory Casey Iniguez DPM Facility:[facility] Start: 04-20-2024 Preoperative state Generic Provider [facility] Start: 04-20-2024 End: 04-20-2024 ambulatory DEV BARBER Not Available Start: 04-16-2024 End: 04-16-2024 ambulatory TERE BLOUNT Facility:[facility] Start: 04-16-2024 End: 04-16-2024 Patient encounter procedure Tere Blount MD Work Phone: Ophthalmology Comment on above: Conjunctival intraep ithelial neoplasm (Primary Dx) Start: 03-23-2024 End: 03-23-2024 ambulatory NANI L MAGDI Not Available Start: 01-16-2024 End: 01-16-2024 ambulatory DEV A NADERER Facility:[facility] Start: 01-16-2024 End: 01-16-2024 Patient encounter procedure Tere Blount MD Work Phone: Ophthalmology Comment on above: Conjunctival intraep ithelial neoplasm (Primary Dx) Start: 11-25-2023 End: 11-25-2023 ambulatory DEV LANDRYR [facility] Start: 11-25-2023 End: 11-25-2023 ambulatory DEV BARBER Not Available Start: 10-17-2023 Refill Shayy Cindea READING COACH.[employer] B[employer]ER Work Phone: Ophthalmology Comment on above: Refill Request Start: 10-15-2023 End: 10-15-2023 ambulatory DEV A LISSETHERER Facility:[facility] Start: 10-15-2023 End: 10-15-2023 Patient encounter procedure Tere Blount MD Work Phone: Ophthalmology Comment on above: Conjunctival intraep ithelial neoplasm (Primary Dx) Start: 10-14-2023 End: 10-14-2023 ambulatory NANI L MAGDI Not Available Start: 09-19-2023 Refill Shayy Cindea READING COACH.[employer] Work Phone: Ophthalmology Comment on above: Refill Request Start: 09-17-2023 End: 09-17-2023 ambulatory DEV A NADERER Facility:[facility] Start: 09-17-2023 End: 09-17-2023 Patient encounter procedure Tere Blount MD Work Phone: Ophthalmology Comment on above: Conjunctival intraep ithelial neoplasm (Primary Dx) Start: 08-15-2023 End: 08-15-2023 ambulatory ELVIA OKEEFE Facility:[facility] Start: 07-23-2023 Telephone encounter Tere crawford MD Work Phone: Ophthalmology Comment on above: Received Outside Med [facility] Records (Notes received from Dr Parra and sent to scanning) Start: 07-22-2023 End: 07-22-2023 ambulatory Boone Olea MD Facility:[facility] Start: 07-08-2023 End: 07-08-2023 ambulatory Boone Olea MD Facility:[facility] Start: 07-01-2023 End: 07-01-2023 ambulatory Boone Olea MD Facility:[facility] Start: 06-03-2023 End: 06-03-2023 ambulatory Boone Olea MD Facility:[facility] Start: 07-19-2022 End: 07-20-[address] DEV BARBER Facility:[facility] Start: 01-03-2022 End: 01-03-[address] DEV BARBER Facility:[facility] Start: 08-24-2021 End: 08-25-[address] DEV BARBER Facility:[facility] Start: 10-27-2018 End: 10-27-2018 Patient encounter procedure Dalton Romo Facility:[facility] Procedures Date Procedure Procedure Detail Performing Clinician Start: 05-19-2024 [facility]H UA (CLEAN/CATCH) MICROSCOPIC IF INDICATE Generic External Data Provider Start: 05-18-2024 ALL CBC WITH AUTO DIFF Generic External Data Provider Start: 05-14-2024 Antibody screen Generic Provider Start: 05-14-2024 ALL TYPE AND SCREEN Gen christina External Data Provider Start: 04-16-2024 End: 04-16-2024 Xtrnl ocular photog w/i&r [facility]o Blount MD Work Phone: Start: 01-16-2024 End: 01-16-2024 Xtrnl ocular photog w/i&r [facility] rayo Pruitt APRN.[employer] Work Phone: Start: 08-24-[address] DEV PAYAN Comment on above: Performed By: #### [facility] #### [facility] [address] [place] [address] Dr. Holden Monae Plan of Treatment Date Care Activity Detail Author Start: 11-24-2026 Diabetes Screening Diabetes Screenin g [facility] Start: 03-23-2025 End: 03-23-2025 Patient encounter procedure 03/23/2025 7:40 AM EDT Office Visit [facility] [address] [place] [address] Nani Fairbanks, KIMBERLY [address] [place] [address] [facility] Start: 06-25-2024 End: 06-25-2024 Patient encounter procedure 06/25/2024 9:30 AM EST Office Visit [facility] [address] [place] [address] Dev Barber MD [address] [place] [address] [facility] Start: 06-11-2024 End: 06-11-2024 Patient encounter procedure 06/11/2024 8:00 AM EST Office Visit [facility] [address] [address] Tere Blount MD [address] [place], [place] [id number] 06/[address] Tere Blount for 2 month f/u Ophthalmology Comment on above: 06/[address] Tere Blount for 2 month f/u Start: 04-16-2024 End: 04-16-2024 Patient encounter procedure 04/16/2024 9:00 AM EDT Office Visit [facility] [address] [address] Tere Blount MD [address] [place], [place] [id number] 3 month follow up Ophthalmology Comment on above: 3 month follow up Start: 04-05-2024 Covid-19 Vaccine ( season) Covid-19 Vaccine () [facility] Start: 04-05-2024 Covid-19 Vaccine ( season) Covid-19 Vaccine ( season) [facility] Start: 04-05-2024 Influenza vaccination Influenza Vacc ine (#1) [facility] Start: 08-05-2023 Advance Directive Discussion Advance Directive Discussion [facility] Start: 08-05-2023 Behavioral Health Screening Behavioral Health Screening [facility] Start: 08-05-2023 Depression Assessment Depression Ass essment [facility] Start: 04-05-2023 Influenza vaccination Influenza Vacc ine (#1) [facility] Start: 08-05-2022 Advance Directive Discussion Advance Directive Discussion [facility] Start: 08-05-2022 Depression Assessment Depression Ass essment [facility] Start: 06-13-2016 Shingrix Vaccine (1 of 2) Shingrix V accine (1 of 2) [facility] Start: 06-13-2016 Shingrix Vaccine (2 of 3) Shingrix V accine (2 of 3) [facility] Start: 2010 Pneumococcal Vaccine : 65+ (1 of 1 - PCV) Pneumococcal Vaccine: 65+ (1 of 1 - PCV) [facility] Start: 2005 RSV Vaccine (1 - 1-d ose 60+ series) RSV Vaccine (1 - 1-dose 60+ series) [facility] Start: 1995 Shingrix Vaccine (1 of 2) Shingrix V accine (1 of 2) [facility] Start: 1990 Diabetes Screening Diabetes Screenin g [facility] Start: 1964 Shingrix Vaccine (1 of 2) Shingrix V accine (1 of 2) [facility] Start: 1964 Urine microalbumin profile DTaP,Tdap,Td Vaccine (1 - Tdap) [facility] Start: 1963 Anxiety Screening Anxiety Screening [facility] Start: 1963 Depression Screening Depression Scre ening [facility] Start: 1963 Hepatitis C screening Hepatitis C Sc carey [facility] Start: 1951 Pneumococcal Vaccine : 65+ (1 of 2 - PCV) Pneumococcal Vaccine: 65+ (1 of 2 - PCV) [facility] Start: 1950 Covid-19 Vaccine (#1) Covid-19 Vacci ne (#1) [facility] Start: 1945 Covid-19 Vaccine (#1) Covid-19 Vacci ne (#1) [facility] Start: 1945 Medicare Annual Well ness (AWV) Medicare Annual Wellness (AWV) [facility] [place] Immunizations Immunization Date Immunization Notes Care Provider Fa kamilla 05-14-2023 influenza virus vacc ine, unspecified formulation Tere Blount MD Work Phone: [facility] Payers Date Payer Category Payer Medicare [id number] 2022 Medicare (Managed Care) [facility] [id number] 2022 Medicare [id number] 2018 Private Health Insurance MEB [id number] 2018 Self-pay 1959 Medicare [id number] 1945 Unknown [id number] [id number]. 593 1945 Unknown [id number] 2.16.840.1.019726.3.579.2. 593 1945 Unknown [id number] 2.16.840.1.110489.3.579.2. 593 1945 Unknown [id number] 2.16.840.1.668050.3.579.2. 1259 1945 Unknown [id number] 2.16.840.1.106872.3.579.2. 1259 1945 Unknown [id number] 2.16.840.1.015218.3.579.2. 1259 1945 Unknown [id number] 2.16.840.1.739765.3.579.2. 1259 1945 Unknown [id number] 2.16.840.1.106964.3.579.2. 1259 1945 Unknown [id number] 2.16.840.1.494881.3.579.2. 196 1945 Unknown [id number] 2.16.840.1.010877.3.579.2. 196 1945 Unknown [id number] 2.16.840.1.383176.3.579.2. 196 1945 Unknown [id number] 2.16.840.1.783359.3.579.2. 196 1945 Unknown [id number] 2.16.840.1.336854.3.579.2. 196 1945 Unknown [id number] 2.16.840.1.769582.3.579.2. 1286 1945 Unknown [id number] 2.16.840.1.464220.3.579.2. 1286 Unknown [id number] 2.16.840.1.697777.3.579.2. 531 Social History Date Type Detail Facility Tobacco smoking stat [facility] Tobacco smoking consumption unknown [facility] Start: 1945 Sex Assigned At Not on file [facility] Start: 08-15-2023 End: 11-24-2023 Gender identity Not on file [facility] Start: 08-15-2023 Tobacco smoking stat [facility] Ex-smoker [facility] History of tobacco use Current smoker [facility] History of tobacco use Cigarette Smoker [facility] Start: 01-21-2023 End: 08-15-2023 Tobacco use and exposure Smokeless tobacco non-user Lupillo ogins [facility] Start: 09-17-2023 End: 04-16-2024 Alcohol intake Current drinker of alcohol (finding) [facility] Start: 08-15-2023 End: 11-24-2023 History of Social function [facility] National Score (1-10 0), lower number is lower risk 53 [facility] Start: 01-21-2023 [facility] Are you now , , , , never or living with a partner? [facility] Do you feel stress - tense, restless, nervous, or anxious, or unable to sleep at night because your mind is troubled all the time - these days [OSQ] Not at all [facility] Start: 10-17-2022 Gender identity Identifies as male gender (finding) [facility] Clinical Notes 08-15-2023 to 05-08-2024 Telephone Encounter - Maria E Greer - 05/08/2024 10:32 AM EDTTelephone Encounter - Maria E Greer - 05/08/2024 10:32 AM Tere Gonzalez MD - 04/16/2024 8:58 AM EDT Note Date & Type Note Facility 05-08-2024 Telephone encount er Note Neva Conklin [facility] [phone] 04/16/24 Fv 06/11/24 Pharmacy electronically requesting refills [...] 1 month for prescription refill (knee surgery) [facility] 05-08-2024 Miscellaneous Notes Formattin g of this note is different from the original. Neva Conklin [facility] [id number] 04/16/24 Fv 06/11/24 Pharmacy electronically requesting refills [...] refill (knee surgery) documented in this encounter [facility] 04-28-2024 Note Procedure: Standing AP views [...] Signed, Electronically Signed in Other Vendor System) [facility] 04-28-2024 Note Procedure: Orthoroen tgenogram. Technique: Supine [...] Signed, Electronically Signed in Other Vendor System) [facility] 04-28-2024 Note Procedure: MRI of th e [...] Signed, Electronically Signed in Other Vendor System) [facility] Comment on above: Order Comment: 04/23/24at -7:21 left message at [phone] fax us a order order scanned in at 9am. good to go. 04-16-2024 Note Date of Procedure 04/16/2024. Direct Sales Representative Information Industrial Engineering Manager: CLAUDIA. Stop time: 9:53 AM. Imaging Comments Best possible images obtained and Best images possible due to patient disposition . Notes [facility] 04-16-2024 Note Date of Procedure 04/16/2024. Direct Sales Representative Information Industrial Engineering Manager: Jael Anna Stop time: 9:54 AM. Imaging Comments Best possible images obtained and Best images possible due to patient disposition . Notes [facility] 04-16-2024 Note HNO ID: [id number] Author: TERE BLOUNT MD Service: ? Author [...] Blount MD April 16, 2024 1:42 PM [facility] 04-16-2024 History of Presen t illness [...] 2024 1:42 PM documented in this encounter [facility] 01-16-2024 Note Date of Procedure 01/16/2024. Direct Sales Representative Information Industrial Engineering Manager: NASIR Stop time: 9:44 AM. Difficulty with imaging/ANDREA Munoz . Notes Thickened Farmer's layer. No signs of MELISSA ZEISS 01-16-2024 Note Date of Procedure 01/16/2024. Direct Sales Representative Information Industrial Engineering Manager: Jael Anna Stop time: 9:44 AM. Notes No MELISSA recurrence [facility]EISS 01-16-2024 Note HNO ID: [id number] Author: TERE BLOUNT MD Service: ? Author [...] Blount MD January 16, 2024 10:19 AM [facility] 01-16-2024 History of Presen t illness [...] 2024 10:19 AM documented in this encounter [facility] 10-15-2023 Note HNO ID: [id number] Author: TEER BLOUNT MD Service: ? Author Type: Physician [...] of topical chemotherapy and there is no MEILSSA left Plan: -TOTAL 3 cycles (completed 2 [...] Blount MD October 15, 2023 9:15 AM [facility] 10-15-2023 History of Presen t illness [...] 2023 9:15 AM documented in this encounter [facility] 09-19-2023 Miscellaneous Notes Formattin g of this note is different from the original. Neva Conklin [facility] [phone] Lv 09/17/23 Fv 10/15/23 Pharmacy electronically requesting refills as follows: Requested Prescriptions Pending Prescriptions Disp Refills [id number]-RICSFELVM-VGMESURR 3.5 MG/ML-10,000 UNIT/ML-0.1% EYE DROPS 5 mL [...] in 4 weeks documented in this encounter [facility] 09-17-2023 Note HNO ID: [id number] Author: TERE BLOUNT MD Service: ? Author [...] Blount MD September 17, 2023 9:06 AM [facility] 09-17-2023 History of Presen t illness [...] 2023 9:06 AM documented in this encounter [facility] 08-15-2023 Note HNO ID: [id number] Author: TERE BLOUNT MD Service: ? 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, other specified sites 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, other specified sites 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, other specified sites 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, other specified sites 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, other specified sites 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, other specified sites documented in this encounter [facility] Summary Purpose Family History No Family History Records FoundNo Family History Records FoundNo Family History Records FoundNo Family History Records FoundNo Family History Records FoundNo Family History Records Found Advance Directives No Advanced Directives Records FoundDocuments on File Type Date Recorded Patient Senior Marketing Specialist Expl anation Advance Directives and Living Will 11/22/2020 2008-12-13 Living Wi ll Advance Directives and Living Will 11/22/2020 2008-12-13 Power of Director Trade Advance Directives and Living Will 09/04/2018 2008-12-13 Living Wi ll Additional Source Comments (unrecognized sect ion and content) No Status Records FoundNo Status Records FoundNo Status Records FoundNo Status Records FoundNo Status Records FoundNo Status Records Found INFORMATION SOURCE (unrecogn ized section and content) DATE CREATED AUTHOR 11/02/2018 [facility] DATE CREATED AUTHOR AUTHOR'S ORGANIZ ATION 07/27/2022 [facility] DATE CREATED AUTHOR AUTHOR'S ORGANIZ ATION 04/18/2024 [facility] DATE CREATED AUTHOR AUTHOR'S ORGANIZ ATION 04/21/2024 [facility] DATE CREATED AUTHOR AUTHOR'S ORGANIZ ATION 04/30/2024 [facility] DATE CREATED AUTHOR AUTHOR'S ORGANIZ ATION 05/27/2024 [facility] Source Comments (unrecognize d section and content) In the event this informatio n is protected by the Federal Confidentiality of Alcohol and Drug Abuse Patient Records regulations: The Federal rules restrict any use of the information to criminally investigate or prosecute any alcohol or drug abuse patient.[facility] the event this information is protected by the Federal Confidentiality of Alcohol and Drug Abuse Patient Records regulations: The Federal rules restrict any use of the information to criminally investigate or prosecute any alcohol or drug abuse patient.[facility] the event this information is protected by the Federal Confidentiality of Alcohol and Drug Abuse Patient Records regulations: The Federal rules restrict any use of the information to criminally investigate or prosecute any alcohol or drug abuse patient.[facility] the event this information is protected by the Federal Confidentiality of Alcohol and Drug Abuse Patient Records regulations: The Federal rules restrict any use of the information to criminally investigate or prosecute any alcohol or drug abuse patient.[facility] the event this information is protected by the Federal Confidentiality of Alcohol and Drug Abuse Patient Records regulations: The Federal rules restrict any use of the information to criminally investigate or prosecute any alcohol or drug abuse patient.[facility] the event this information is protected by the Federal Confidentiality of Alcohol and Drug Abuse Patient Records regulations: The Federal rules restrict any use of the information to criminally investigate or prosecute any alcohol or drug abuse patient.[facility] the event this information is protected by the Federal Confidentiality of Alcohol and Drug Abuse Patient Records regulations: The Federal rules restrict any use of the information to criminally investigate or prosecute any alcohol or drug abuse patient.[facility] the event this information is protected by the Federal Confidentiality of Alcohol and Drug Abuse Patient Records regulations: The Federal rules restrict any use of the information to criminally investigate or prosecute any alcohol or drug abuse patient.[facility] Reason for Visit (unrecogniz ed section [...] Care Teams (unrecognized sec tion and content) Zipper Measurer Relationship Specialty Start Date End Date Elvia Okeefe PCP - General Family Medicine 01/04/16 Zipper Measurer Relationship Specialty Start Date End Date Dev Barber [address] [place] [address] PCP - General Family Medicine 09/17/23 Zipper Measurer Relationship Specialty Start Date End Date Dev Barber [address] [place] [address] PCP - [facility] Family [facility] 09/17/23 Zipper Measurer Relationship Specialty Start Date End Date Dev Barber [address] [place] [address] PCP - General Family [facility] 09/17/23 Zipper Measurer Relationship Specialty Start Date End Date Dev Barber [address] [place] [address] PCP General [facility] 09/17/23 Zipper Measurer Relationship Specialty Start Date End Date Dev Barber [address] [place] [address] PCP - General [facility] 09/17/23 Zipper Measurer Relationship Specialty Start Date End Date Dev Barber MD [address] [place] [id number] PCP - General Family Medicine 11/25/23 Zipper Measurer Relationship Specialty Start Date End Date Dev Barber MD [address] [place] [phone] PCP - General Family Medicine 11/25/23 FOR RECORDS PERTAINING TO PATIENTS WHO ARE [...] BE BASED ON THE PRIMARY CLINICAL RECORDS. [facility] [employer] [facility]. provides no warranty or guarantee of the accuracy or completeness of information in this document.
== END 2024-06-01 13:55 | disposition home or self-care (01) ==
LOC: EC 13:54
PROVIDERS: PCP Family Medicine; Visit Provider Student in an Organized Health Care Education/Training Program
DX: Z47.1 Aftercare following joint replacement surgery (principal)
CPT/HCPCS: 73560

== ENCOUNTER 2024-07-13 13:07 | Outpatient (OUT) | payer MEDICARE, SELFPAY ==
--- NOTE | 2024-07-13 | XR_ITS ---
The [address] [address] Patient Name: MONA SONI MRN: [id number] date: 1945 Sex: M Assigned Patient Location: Current Patient Location: Accession/Order Number: [id number] Exam Date: 07/13/2024 13:35 Report Date: 07/15/2024 06:33 At the request of: SHERIE LANG Procedure: XR knee LT 2V PROCEDURE: XR knee LT 2V HISTORY: LEFT KNEE PAIN COMPARISON: XR knee left 06/01/2024 FINDINGS: BONES:Total knee replacement without evidence of hardware fracture loosening. No bone fracture dislocation. Thin ossification cephalad to the knee joint projecting anterior to the distal femoral diaphysis; nonspecific but likely sequela of surgery or posttraumatic heterotopic bone formation. SOFT TISSUES:No visible soft tissue swelling. EFFUSION:None visible. OTHER: Negative. XR/XR knee LT 2V IMPRESSION: 1. Total left knee replacement without evidence of hardware failure. Electronically authenticated by: HELENA FITZPATRICK Date: 07/15/2024 06:33
== END 2024-07-13 13:08 | disposition home or self-care (01) ==
LOC: EC 13:07
PROVIDERS: PCP Family Medicine; Visit Provider Student in an Organized Health Care Education/Training Program
DX: Z47.1 Aftercare following joint replacement surgery (principal); Z96.652 Presence of left artificial knee joint
CPT/HCPCS: 73560

== ENCOUNTER 2024-09-14 13:38 | Outpatient (OUT) | payer MEDICARE, SELFPAY ==
--- NOTE | 2024-09-14 | XR_ITS ---
[address] [address] Patient Name: MONA SONI MRN: [id number] date: 1945 Sex: M Assigned Patient Location: Current Patient Location: Accession/Order Number: [id number] Exam Date: 09/14/2024 13:40 Report Date: 09/15/2024 09:28 At the request of: SHERIE LANG Procedure: XR knee LT 4V PROCEDURE: XR knee LT 4V COMPARISON: 05/18/2024 HISTORY: LET KNEE PAIN FINDINGS: BONES:Total knee arthroplasty with patellar resurfacing. No acute fracture, dislocation or mechanical failure SOFT TISSUES:Negative. No visible soft tissue swelling. EFFUSION:None visible. OTHER: Negative. XR/XR knee LT 4V IMPRESSION: Total knee arthroplasty. Electronically authenticated by: TYLER PIKE Date: 09/15/2024 09:28
== END 2024-09-14 13:39 | disposition home or self-care (01) ==
LOC: EC 13:39
PROVIDERS: PCP Family Medicine; Visit Provider Student in an Organized Health Care Education/Training Program
DX: M17.12 Unilateral primary osteoarthritis, left knee (principal); Z96.652 Presence of left artificial knee joint
CPT/HCPCS: 73564

== ENCOUNTER 2024-11-16 13:22 | Outpatient (OUT) | payer MEDICARE, SELFPAY ==
--- NOTE | 2024-11-16 | XR_ITS ---
The [address] [address] Patient Name: MONA SONI MRN: [id number] date: 1945 Sex: M Assigned Patient Location: Current Patient Location: Accession/Order Number: [id number] Exam Date: 11/16/2024 15:14 Report Date: 11/16/2024 15:14 At the request of: SHERIE LANG MD Procedure: XR knee LT 2V LEFT KNEE - 2 views CLINICAL HISTORY: Aftercare following joint replacement surgery Z47.1 COMPARISON: Left knee series 09/14/2024 FINDINGS: Left TKA without radiographic complication. XR/XR knee LT 2V IMPRESSION: NO HARDWARE COMPLICATION. Impression dictated by: Tabatha Ndiaye Jr.OSara11/16/2024 3:14 PM Dictation Location: [place] [address] Electronically authenticated by: [id number] Y Date: 11/16/2024 15:14
== END 2024-11-16 13:23 | disposition home or self-care (01) ==
LOC: EC 13:23
PROVIDERS: PCP Family Medicine; Visit Provider Student in an Organized Health Care Education/Training Program
DX: Z47.1 Aftercare following joint replacement surgery (principal); Z96.642 Presence of left artificial hip joint
CPT/HCPCS: 73560